=== PATIENT | female | born 1950 ===

== ENCOUNTER → 2020-07-03 14:42 | Outpatient (BNVA) | payer MEDICARE, SELFPAY | PROVIDERS: PCP Internal Medicine Geriatric Medicine; Visit Provider Physician Assistant | DX: K21.9 Gastro-esophageal reflux disease without esophagitis (principal); Z79.899 Other long term (current) drug therapy | CPT/HCPCS: Q3014 ==

== ENCOUNTER 2021-03-17 19:10 | Emergency (ER) | payer MEDICARE, SELFPAY ==
--- NOTE | ~2021-03-17 | XR_ITS ---
EXAMINATION: LEFT HIP, LEFT CLINICAL INFORMATION: Left hip and knee pain with swelling COMPARISON: Left knee 08/24/2016, CT abdomen pelvis 05/01/2019 TECHNIQUE: 2 views left knee, single view pelvis with 2 additional views left hip FINDINGS: Knee: No significant abnormality is seen. A tiny posterior superior patellar osteophyte is seen. Joint spaces are well preserved. No chondrocalcinosis. Left hip: There is partial lumbarization of S1. Degenerative changes are noted in the visualized spine. Some minimal degenerative changes are present in both hips with some lateral acetabular osteophytes. XR/XR hip LT min 2V IMPRESSION: Minimal degenerative changes hips as well as in the left knee.
--- NOTE | ~2021-03-17 | XR_ITS ---
EXAMINATION: LEFT HIP, LEFT CLINICAL INFORMATION: Left hip and knee pain with swelling COMPARISON: Left knee 08/24/2016, CT abdomen pelvis 05/01/2019 TECHNIQUE: 2 views left knee, single view pelvis with 2 additional views left hip FINDINGS: Knee: No significant abnormality is seen. A tiny posterior superior patellar osteophyte is seen. Joint spaces are well preserved. No chondrocalcinosis. Left hip: There is partial lumbarization of S1. Degenerative changes are noted in the visualized spine. Some minimal degenerative changes are present in both hips with some lateral acetabular osteophytes. XR/XR knee LT 2V IMPRESSION: Minimal degenerative changes hips as well as in the left knee.
--- NOTE | ~2021-03-17 | US_ITS ---
EXAMINATION: US VENOUS WITH DOPPLER LOWER EXTREMITY, LEFT CLINICAL INFORMATION: Swelling. Pain. Evaluate for a deep vein thrombosis. COMPARISON: Left lower extremity venous ultrasound dated 08/24/2019. TECHNIQUE: Ultrasound of the deep veins is performed from the hip to the calf with compression sonography and color and pulse Doppler assessment. Spectral analysis with color-flow imaging is performed. FINDINGS: There is normal venous compression and respiratory variation and augmented flow. The visualized common femoral vein, superficial femoral vein, profunda femoral vein, popliteal vein, and the trifurcation region shows no evidence of deep venous thrombosis. There is no significant popliteal fossa cyst. If the patient's symptoms persist, follow up ultrasound in 5 days 7 days might be of value to exclude proximal propagation from a non-visualized calf vein. US/US venous duplex LE IMPRESSION: No DVT demonstrated in the left lower extremity.
[2021-03-17 19:39] VITALS: BP 149/77; PULSE 79; RESP 18; TEMP 37; O2SAT 99; BMI 25.7
--- NOTE | 2021-03-17 22:17 | ED_ITS ---
HPI - Extremity Injury (Lower) General Chief Complaint: Extremity Injury, Lower Stated Complaint: swollen feet Time Seen by Provider: 03/17/21 21:27 Source: patient and official court interpreter Mode of arrival: ambulatory Limitations: no limitations and language barrier History of Present Illness HPI Narrative: 70-year-old female here with complaints of left leg pain and swelling. The patient tells me that for about 1 week she has had pain which she feels is in her left inner groin which radiates down to the knee. No injury or trauma. She feels like the distal leg is swollen. No warmth or redness. No recent travel or sick contact. No fevers or chills or numbness or tingling. She feels like the pain is worsened with weight-bearing. Related Data Home Medications Medication Instructions Recorded Confirmed pantoprazole 40 mg tablet,delayed 40 mg PO DAILY 07/03/20 07/03/20 release Previous Rx's Medication Instructions Recorded cyclobenzaprine 10 mg PO TID PRN #10 tab 03/17/21 naproxen 250 mg PO BID PRN #15 tab 03/17/21 Allergies Allergy/AdvReac Type Severity Reaction Status Date / Time poly-ureaurethane Allergy Unknown SEVERE Verified 03/17/21 19:43 [From NUVAIL] ANXIETY Review of Systems Review of Systems: Yes all other systems are reviewed and are negative Constitutional: Constitutional: Reports no additional constitutional complaints, Denies body ache(s), Denies chills, Denies fever(s), Denies headache(s) and Denies weakness Eyes: Eyes: Reports no additional eye complaints and Denies change in vision ENT: Reports system reviewed and no additional complaints, except as documented, Denies dizziness, Denies headache(s), Denies nasal congestion, Denies nasal discharge and Denies neck pain Cardiovascular: Cardiovascular: Reports no additional cardiovascular complaints, Denies chest pain, Denies leg edema and Denies dyspnea Respiratory: Respiratory: Reports no additional respiratory complaints, Denies cough and Denies dyspnea Gastrointestinal: Gastrointestinal: Reports no additional gastrointestinal complaints, Denies abdominal pain, Denies diarrhea, Denies nausea and Denies vomiting Genitourinary: Genitourinary: Reports no additional female genitourinary complaints and Denies urinary incontinence Musculoskeletal: Musculoskeletal: Reports no additional musculoskeletal complaints, Denies back pain, Reports arthralgias, Denies joint swelling, Denies neck pain, Denies numbness, Reports radiating pain into limb and Denies tingling Integumentary/Breasts: Skin/Breast: Reports system reviewed and no additional complaints, except as docu and Denies rash Neurologic: Reports system reviewed and no additional complaints, except as documented, Denies Abnormal speech present, Denies dizziness, Denies headache(s), Denies numbness, Denies tingling and Denies weakness PMFSH Past Medical History Attestation statement: The following information was validated with the patient. Source: old records reviewed and nursing notes reviewed Medical History Acid reflux HTN (hypertension) Surgical History H/O: hysterectomy Hx of tonsillectomy Family History Family History Brother Prostate cancer Sister Colon cancer Social History Social History Alcohol intake: never Advance Directives: No Advance Directives Information Provided: No Current occupational status: employed Physical Exam Vital Signs: Vital Signs: Last Vital Signs Temp 98.6 F 03/17/21 19:39 Pulse 79 03/17/21 19:39 Resp 18 03/17/21 19:39 BP 149/77 H 03/17/21 19:39 Pulse Ox 99 03/17/21 19:39 Body Mass Index 25.7 Const: General: cooperative, healthy appearing, comfortable and no acute distress Orientation/consciousness: patient oriented x3 Limitations: no limitations HENMT: Head: Yes normal to inspection Ears: hearing grossly normal bilaterally General nose exam: Normal external nose present Face and si nus: Yes normal facial exam Mouth: Normal oral and palatal mucosa present Throat: Yes posterior oropharynx normal Eyes: General: appearance normal, both eyes and all related structures Pupils: Equal, round and reactive pupils present Neck: Neck: Yes normal visual inspection Chest: Chest palpation & inspection: normal inspection of the chest Resp: Effort & Inspection: normal respiratory effort Auscultation: clear to auscultation bilaterally Cardio: Rate: regular rate Rhythm: regular rhythm Peripheral pulses: Peripheral pulses 2+ throughout GI: Inspection: Yes normal to inspection Palpation (GI): Soft to palpation and nontender Auscultation: normal bowel sounds Back/Spine/Pelvis: Thoracic/Lumbar Spine: thoracic and lumbar spine normal to inspection Skin: General skin exam: no rashes or lesions noted Neuro: General: patient oriented x3, no focal motor deficits and normal sensation to monofilament Cranial nerves: Yes Equal, round and reactive pupils present Cognition (Neuro): normal cognition Speech: No Abnormal speech present Gait exam (Neuro): Normal gait present Motor exam (neuro): 5/5 motor strength present throughout Extrem: Other: pain over the left anterior groin and inner thigh along the hip flexor-worsened with straight leg and leg with flexion of the knee. FROM of left hip Tenderness over left anterior knee with mild swelling and FROM. Left posterior calf pain with no swelling, erythema or warmth General: Yes normal to inspection Course Course Course Narrative: 70 yo female here with complaints of one week of left hip pain with radiation to the knee. No fall or injury. On exam has tenderness over the left hip flexor. Also pain over knee and posterior calf. Will check x-rays, US. 2250-x-ray shows some degenerative changes. Ultrasound is negative for DVT. Likely hip flexor strain. Could also be a component of underlying arthritis. Will treat with supportive measures. Have patient follow-up with primary care doctor for continued pain. Reviewed worrisome signs and symptoms of when to return to the emergency department. Comfortable discharge home. MDM - Extremity Injury (Lower) Medical Records Attestation: I reviewed the patient's medical records. Lab Data Attestation: I reviewed the patient's lab results. Imaging Data left hip xray: Attestation: I personally reviewed and interpreted this imaging study as follows: Radiologist's impression: Left hip: There is partial lumbarization of S1. Degenerative changes are noted in the visualized spine. Some minimal degenerative changes are present in both hips with some lateral acetabular osteophytes. left knee xray: Attestation: I personally reviewed and interpreted this imaging study as follows: Radiologist's impression: Knee: No significant abnormality is seen. A tiny posterior superior patellar osteophyte is seen. Joint spaces are well preserved. No chondrocalcinosis. Venous US: Attestation: I personally reviewed and interpreted this imaging study as follows: Radiologist's impression: FINDINGS: There is normal venous compression and respiratory variation and augmented flow. The visualized common femoral vein, superficial femoral vein, profunda femoral vein, popliteal vein, and the trifurcation region shows no evidence of deep venous thrombosis. There is no significant popliteal fossa cyst. If the patient's symptoms persist, follow up ultrasound in 5 days 7 days might be of value to exclude proximal propagation from a non-visualized calf vein. US/US venous duplex LE LT IMPRESSION: No DVT demonstrated in the left lower extremity. Discharge Plan Discharge Clinical Impression: Strain of flexor muscle of left hip Qualifiers: Encounter type: initial encounter Qualified Code(s): S76.012A - Strain of muscle, fascia and tendon of left hip, initial encounter Patient Disposition: Home, Self-Care Instructions: Muscle Strain (ED), Groin Strain (ED) Additional Instructions: Heat to the area Gentle stretching Your x-rays show some arthritis. Your ultrasound shows no blood clots. Your exam is consistent with a hip flexor strain Prescriptions: New cyclobenzaprine 10 mg tablet 10 mg PO TID PRN (Reason: muscle spasm) Qty: 10 RF: 0 naproxen 250 mg tablet 250 mg PO BID PRN (Reason: pain) Qty: 15 RF: 0 No Action pantoprazole 40 mg tablet,delayed release (DR/EC) 40 mg PO DAILY RF: 0 Referrals: Name,MD Saleem [Primary Care Provider] - 2 days Print Language: Guinean
== END 2021-03-17 23:19 | disposition home or self-care (01) ==
PROVIDERS: Emergency Provider Emergency Medicine; PCP Internal Medicine Geriatric Medicine
DX: S76.012A Strain of muscle, fascia and tendon of left hip, initial encounter (principal); X58.XXXA Exposure to other specified factors, initial encounter; M79.605 Pain in left leg; R22.42 Localized swelling, mass and lump, left lower limb; I10 Essential (primary) hypertension; Y93.9 Activity, unspecified; Y92.9 Unspecified place or not applicable; Y99.9 Unspecified external cause status
CPT/HCPCS: 73502; 73560; 93971; 99283; 99284

== ENCOUNTER 2021-11-12 13:06 | Emergency (ER) | payer MEDICARE, SELFPAY ==
[2021-11-12 14:07] VITALS: BP 169/85; PULSE 73; RESP 18; TEMP 37; O2SAT 99; BMI 27.4
--- NOTE | 2021-11-12 15:04 | ECG_ITS ---
Test Reason : HTN Blood Pressure : / mmHG Vent. Rate : 074 BPM Atrial Rate : 074 BPM P-R Int : 144 ms QRS Dur : 070 ms QT Int : 402 ms P-R-T Axes : 032 -02 021 degrees QTc Int : 446 ms Normal sinus rhythm Possible Left atrial enlargement Septal infarct , age undetermined Abnormal ECG When compared with ECG of 23-OCT-2019 00:00, Septal infarct is now Present Nonspecific T wave abnormality now evident in Anterolateral leads Referred By: Generic ED Physician Electronically Signed By:CYNTHIA LOVELL MD
[2021-11-12 15:36] LABS: MANUAL DIFF FLAG NO
[2021-11-12 15:37] LABS: Basophils Absolute Auto 0.1 X10*3/uL (0.0-0.2); Basophils Percent Auto 1.4 % (0-2); Eosinophils Absolute Auto 0.3 X10*3/uL (0.0-0.4); Eosinophils Percent Auto 4.4 % (0-4); Hematocrit 43.7 % (37.0-47.0); Hemoglobin 14.1 g/dl (12.0-16.0); Imm Gran Abs Auto 0.01 X10*3/uL (0.00-0.03); Imm Gran Pct Auto 0.2 % (0.0-0.4); Lymphocytes Absolute Auto 2.3 X10*3/uL (1.2-4.9); Lymphocytes Percent Auto 40.5 % (20-40); Mean Corpuscular HGB Conc 32.3 g/dl (31.0-35.0); Mean Corpuscular Hemoglobin 30.9 pg (27.0-33.0); Mean Corpuscular Volume 95.6 fL (80.0-98.0); Mean Platelet Volume 12.1 fL (9.4-12.3); Monocytes Absolute Auto 0.4 X10*3/uL (0.1-1.2); Monocytes Percent Auto 6.9 % (2-11); Neutrophils Absolute Auto 2.6 x10*3/uL (2.0-8.3); Neutrophils Percent Auto 46.6 % (45-73); Platelet Count 203 X10*3/uL (160-400); Red Blood Count 4.57 X10*6/uL (4.20-5.50); Red Cell Distribution Width 12.7 % (11.0-16.0); White Blood Count 5.7 X10*3/uL (4.8-10.8)
[2021-11-12 15:50] LABS: Anion Gap 12 (12-20); Blood Urea Nitrogen 11 mg/dL (9-16); Calcium 9.9 mg/dL (8.4-10.2); Carbon Dioxide 28 mmol/L (22-29); Chloride 105 mmol/L (96-108); Creatinine Clr Calc Pharmacy 59.8; Estimated Glomerular Filt Rate > 60; Glucose Random 144 mg/dL (60-115); Potassium 4.3 mmol/L (3.3-5.1); Sodium 141 mmol/L (135-145)
[2021-11-12 15:57] LABS: Troponin-I High Sensitivity < 3.5 ng/L (<3.5-17.0)
--- NOTE | 2021-11-12 18:27 | ED_ITS ---
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 She had a mild headache. She took her blood pressure noted that was high. She shows several readings where it was in the range of 170-180 systolic over 80-90 diastolic. Patient denies any acute visual changes. Her headache is very mild. She denies any new numbness or weakness in her arms or legs or face. She denies any shortness of breath, has had some mild twinges of chest pain. She denies abdominal pain, nausea vomiting. She has felt like her feet are low bit swollen. She does have some chronic tingling in both of her arms. Related Data Home Medications Medication Instructions Recorded Confirmed pantoprazole 40 mg tablet,delayed 40 mg PO DAILY 07/03/20 07/03/20 release Previous Rx's Medication Instructions Recorded cyclobenzaprine 10 mg tablet 10 mg PO TID PRN #10 tab 03/17/21 naproxen 250 mg tablet 250 mg PO BID PRN #15 tab 03/17/21 amlodipine 5 mg tablet 5 mg PO BID #30 tab 11/12/21 Allergies Allergy/AdvReac Type Severity Reaction Status Date / Time poly-ureaurethane Allergy Unknown SEVERE Verified 03/17/21 19:43 [From NUVAIL] ANXIETY Review of Systems Review of Systems: Yes all other systems are reviewed and are negative Constitutional: Constitutional: Reports as per HPI and Denies fever(s) Eyes: Eyes: Reports as per HPI and Reports no additional eye complaints ENT: Reports system reviewed and no additional complaints, except as documented, Reports as per HPI, Reports dizziness, Denies nasal congestion, Denies nasal discharge and Denies sore throat Cardiovascular: Cardiovascular: Reports as per HPI, Reports chest pain and D enies dyspnea Respiratory: Respiratory: Reports as per HPI, Denies cough and Denies dyspnea Gastrointestinal: Gastrointestinal: Reports as per HPI, Denies abdominal pain, Denies diarrhea and Denies vomiting Genitourinary: Genitourinary: Reports as per HPI, Denies hematuria, Denies urinary frequency and Denies dysuria Musculoskeletal: Musculoskeletal: Reports no additional musculoskeletal complaints and Denies numbness Integumentary/Breasts: Skin/Breast: Reports as per HPI and Denies rash Neurologic: Reports as per HPI, Reports dizziness, Denies focal weakness and Denies numbness Psychiatric: Psychiatric: Reports no additional psychiatric complaints and Reports as per HPI Endocrine: Endocrine: Reports no additional endocrine complaints and Reports as per HPI Hematologic/Lymphatic: Hematologic/Lymphatic: Reports no additional he matologic/lymphatic complaints, Reports as per HPI and Reports other (No peripheral edema) [facility] Past Medical History Medical History Acid reflux HTN (hypertension) Surgical History H/O: hysterectomy Hx of tonsillectomy Family History Family History Brother Prostate cancer Sister Colon cancer Social History Social History Alcohol intake: never Advance Directives: No Advance Directives Information Provided: Yes Current occupational status: employed Physical Exam ED Vital Signs: Vital Signs - 24 hr 11/12/21 14:07 11/12/21 19:59 Temperature 98.6 F Pulse Rate 73 65 Respiratory Rate 18 16 Blood Pressure 169/85 H 148/76 H Pulse Oximetry 99 99 BMI result Body Mass Index 27.4 Const Other: Patient well-appearing for her stated age General: no acute distress Orientation/consciousness: patient oriented x3 HENMT Head: Yes normal to inspection General nose exam: Normal external nose present Mouth: moist mucous membranes Throat: Yes posterior oropharynx normal, Yes tonsils normal and Yes uvula midline Eyes Eyelids: Yes eyelids normal Conjunctivae: conjunctivae normal Pupils: Equal, round and reactive pupils present Neck Neck: Yes supple Resp Effort & Inspection: normal respiratory effort Auscultation: clear to auscultation bilaterally Cardio Rate: regular rate Rhythm: regular rhythm Heart sounds: S1 normal heart sound present, S2 normal heart sound present, no gallops, no murmurs and no rubs GI Inspection: No distended Palpation (GI): Soft to palpation and nontender Auscultation: normal bowel sounds Skin General skin exam: other (Warm and dry) Neuro General: patient oriented x3 and CN's II-XI intact bilaterally Cranial nerves: Yes Equal, round and reactive pupils present Extrem General: Yes no pedal edema Psych Affect: normal affect Attitude: cooperative Medical Decision Making MDM Narrative Medical decision making narrative: Patient with moderately elevated hypertension, not at an emergent level Patient has been taking her blood pressure medicines. Patient was given an additional d ose of amlodipine, will increase her amlodipine to 10 mg a day) 5 mg p.o. b.i.d.), in addition to her irbesartan. CBC chemistry EKG unremarkable Lab Data Result diagrams: 11/12/21 15:31 11/12/21 15:31 Labs: Lab Results 11/12/21 11/12/21 11/12/21 Range/Units 15:31 15:31 15:31 WBC 5.7 (4.8-10.8) X10*3/uL RBC 4.57 (4.20-5.50) X10*6/uL Hgb 14.1 (12.0-16.0) g/dl Hct 43.7 (37.0-47.0) % MCV 95.6 (80.0-98.0) fL MCH 30.9 (27.0-33.0) pg MCHC 32.3 (31.0-35.0) g/dl RDW 12.7 (11.0-16.0) % Plt Count 203 (160-400) X10*3/uL MPV 12.1 (9.4-12.3) fL Immature Gran % (Auto) 0.2 (0.0-0.4) % Neut % (Auto) 46.6 (45-73) % Lymph % (Auto) 40.5 H (20-40) % [place] % (Auto) 6.9 (2-11) % Eos % (Auto) 4.4 H (0-4) % Baso % (Auto) 1.4 (0-2) % Lymph # (Auto) 2.3 (1.2-4.9) X10*3/uL [place] # (Auto) 0.4 (0.1-1.2) X10*3/uL Eos # (Auto) 0.3 (0.0-0.4) X10*3/uL Baso # (Auto) 0.1 (0.0-0.2) X10*3/uL Abs Immat Gran (auto) 0.01 (0.00-0.03) X10*3/uL Absolute Neuts (auto) 2.6 (2.0-8.3) x10*3/uL Absolute Nucleated RBC 0.000 (0.0-0.012) X10*3/uL Nucleated RBC % (auto) 0.0 (0.0-0.2) /100WBC Sodium 141 (135-145) mmol/L Potassium 4.3 (3.3-5.1) mmol/L Chloride 105 (96-108) mmol/L Carbon Dioxide 28 (22-29) mmol/L Anion Gap 12 (12-20) BUN 11 (9-16) mg/dL Creatinine 0.80 (0.5-1.4) mg/dL Estim Creat Clear Calc 59.8 Estimated GFR > 60 Random Glucose 144 H (60-115) mg/dL Calcium 9.9 (8.4-10.2) mg/dL Troponin I High Sens < 3.5 (<3.5-17.0) ng/L ECG Data Attestation: I personally reviewed and interpreted this ECG as follows: Interpretation: Sinus rhythm with a rate of 74. Q-waves in leads V1 and V2 consistent with an old septal infarct. No ST elevation or depression. Discharge Plan Discharge Clinical Impression: HTN (hypertension) Patient Disposition: Home, Self-Care Instructions: Hypertension (ED) Additional Instructions: Double your dose of amlodipine to 10 mg daily, and follow up with her primary care physician. Return for any new or worsened symptoms. Prescriptions: New amlodipine 5 mg tablet 5 mg PO BID Qty: 30 0RF Rx Instructions: Patient currently on 5 mg daily, is to increase to 5 mg b.i.d. No Action cyclobenzaprine 10 mg tablet 10 mg PO TID PRN (Reason: muscle spasm) Qty: 10 0RF naproxen 250 mg tablet 250 mg PO BID PRN (Reason: pain) Qty: 15 0RF pantoprazole 40 mg tablet,delayed release (DR/EC) 40 mg PO DAILY 0RF Interventions: ED Discharge Assessment Last Done: 11/12/21 20:04 Discharge Date/Time: 11/12/21 20:05
[2021-11-12 19:59] VITALS: BP 148/76; PULSE 65; RESP 16; O2SAT 99
--- NOTE | 2021-11-12 20:00 | PC.NURSE ---
pt denies chest pain, pressure, or dizziness.
[2021-11-12] MEDS: amLODIPine Besylate 5 MG TABLET PO (20:01)
== END 2021-11-12 20:05 | disposition home or self-care (01) ==
PROVIDERS: Emergency Provider Emergency Medicine; PCP Internal Medicine Geriatric Medicine
DX: I10 Essential (primary) hypertension (principal); R51.9 Headache, unspecified
CPT/HCPCS: 36415; 80048; 84484; 85025; 93005; 99283; 99284

== ENCOUNTER → 2021-11-17 08:57 | Outpatient (BNVA) | payer MEDICARE, SELFPAY | PROVIDERS: PCP Internal Medicine Geriatric Medicine; Visit Provider Physician Assistant | DX: K21.9 Gastro-esophageal reflux disease without esophagitis (principal) | CPT/HCPCS: 99212 ==

== ENCOUNTER 2021-12-15 10:40 | Outpatient (REF) | payer MEDICARE, SELFPAY ==
--- NOTE | ~2021-12-15 | MM_ITS ---
EXAMINATION: MM SCREENING DIGITAL BREAST TOMOSYNTHESIS, BILATERAL CLINICAL INFORMATION: Screening. Asymptomatic. The lifetime risk of breast cancer based on the Tyrer-Cuzick Model is 4%. COMPARISON: Mammography: 11/27/2018 (new baseline) TECHNIQUE: Digital breast tomosynthesis is performed in both the craniocaudal and mediolateral oblique views along with computer-aided detection (CAD). Synthesized 2D images are generated from the tomosynthesis. FINDINGS: There are scattered areas of fibroglandular density (ACR BI-RADS breast composition Category b). There are no significant masses, abnormal calcifications, or other abnormalities. Parenchymal pattern is similar to prior new baseline exam. The axilla and skin contours are unremarkable. MM/MM tomosynthesis screening BI IMPRESSION: No mammographic evidence of malignancy. ASSESSMENT: BI-RADS 1: Negative RECOMMENDATION: Routine annual mammography screening. This patient's information was entered into a reminder system with a target due date for their next mammogram.
== END 2021-12-15 10:41 | disposition home or self-care (01) ==
LOC: HO.MAMMO 10:40
PROVIDERS: Visit Provider Internal Medicine Geriatric Medicine
DX: Z12.31 Encounter for screening mammogram for malignant neoplasm of breast (principal)
CPT/HCPCS: 77063; 77067

== ENCOUNTER 2022-05-05 09:46 | Outpatient (REF) | payer MEDICARE, SELFPAY ==
--- NOTE | ~2022-05-05 | MM_ITS ---
EXAMINATION: BONE DENSITOMETRY CLINICAL INDICATION: Menopause. COMPARISON: Baseline BD dated 12/15/2018. TECHNIQUE: Using a [employer] DXA System (software version: 13.1) manufactured by [employer] Left, dual-energy x-ray absorptiometry was performed of the lumbar spine and left hip. The images are of good technical quality. Summary results are attached. FINDINGS: AP SPINE L1-L4: Current: BMD 0.733 g/cm2, Z-score -2.1, T-score -3.7, osteoporosis, 3.8% increase from baseline (<5% change is not significant). Baseline: BMD 0.706 g/cm2. LEFT FEMUR, NECK: Current: BMD 0.682 g/cm2, Z-score -0.8, T-score -2.6, osteoporosis. Baseline: BMD 0.741 g/cm2. LEFT FEMUR, TOTAL: Current: BMD 0.771 g/cm2, Z-score -0.3, T-score -1.9, osteopenia, 0.1% decrease from baseline (<5% change is not significant). Baseline: BMD 0.772 g/cm2. IDENTIFIED RISK FACTORS: Early menopause, secondary osteoporosis, family history (parental hip fracture), hysterectomy, recurrent falls. HISTORY OF FRACTURE: None listed. MEDICATIONS: Calcium supplements or multivitamin, vitamin D. MM/XR DEXA axial skeleton IMPRESSION: 1. DIAGNOSIS: Osteoporosis based on the lowest T-score value of -3.7 in the lumbar spine applying World Health Organization criteria. 2. 10-YEAR FRACTURE RISK PREDICTION, FRAX: Major osteoporotic fracture (clinical spine, forearm, hip or shoulder) 16.7%. Hip fracture 8.3%. 3. Treatment Recommendations: NOF guidelines recommend consideration for treatment in postmenopausal women and men age 50 and older presenting with the following: -A hip or vertebral (clinical or morphometric) fracture. -T-score less than or equal to -2.5 at the femoral neck or spine after appropriate evaluation to exclude secondary causes. -Low bone mass at the hip or spine and a 10-year fracture probability by FRAX of greater than or equal to 3% for hip fracture or greater than or equal to 20% for major osteoporotic fracture based on the [place] adapted WHO algorithm. 4. Other Recommendations: All treatment decisions require clinical judgment and consideration of individual patient factors, including patient preferences, comorbidities, previous drug use, risk factors not captured in the FRAX model (e.g. frailty, falls, vitamin D deficiency, increased bone turnover, interval significant decline in bone density) and possible under or overestimation of fracture risk by FRAX. Additional medical evaluation for secondary cause of low bone mineral density may be appropriate. FUTURE SCAN RECOMMENDATION: People with diagnosed cases of osteoporosis or at high risk for fracture should have regular bone mineral density tests. For patients eligible for Medicare, routine testing is allowed once every 2 years. The testing frequency can be increased to one year for patients who have rapidly progressing disease, those who are receiving or discontinuing medical therapy to restore bone mass, or have additional risk factors.
== END 2022-05-05 09:47 | disposition home or self-care (01) ==
LOC: HO.MAMMO 09:46
PROVIDERS: PCP Internal Medicine Geriatric Medicine; Visit Provider Internal Medicine Geriatric Medicine
DX: Z13.820 Encounter for screening for osteoporosis (principal); Z78.0 Asymptomatic menopausal state
CPT/HCPCS: 77080

== ENCOUNTER → 2022-05-25 08:52 | Outpatient (BNVA) | payer MEDICARE, SELFPAY | PROVIDERS: PCP Internal Medicine Geriatric Medicine; Visit Provider Internal Medicine Endocrinology, Diabetes & Metabolism | DX: M81.0 Age-related osteoporosis without current pathological fracture (principal) | CPT/HCPCS: 99202 ==

== ENCOUNTER 2022-05-25 10:04 | Outpatient (REF) | payer MEDICARE, SELFPAY ==
[2022-05-25 10:51] LABS: Phosphorus 3.3 mg/dL (2.7-4.5)
[2022-05-25 11:15] LABS: Vitamin D 25-OH Total 17.6 ng/mL (>30)
[2022-05-28 21:17] LABS: Prot Elec - Albumin 4.2 g/dL (3.8-4.8); Prot Elec - Alpha1 0.2 g/dL (0.2-0.3); Prot Elec - Alpha2 0.8 g/dL (0.5-0.9); Prot Elec - Beta 1 0.5 g/dL (0.4-0.6); Prot Elec - Beta 2 0.3 g/dL (0.2-0.5); Prot Elec - Gamma 1.1 g/dL (0.8-1.7); Prot Elec - Total Protein 7.1 g/dL (6.1-8.1)
== END 2022-05-25 10:05 | disposition home or self-care (01) ==
LOC: HO.10HDL 10:04
PROVIDERS: Visit Provider Internal Medicine Endocrinology, Diabetes & Metabolism
DX: M81.0 Age-related osteoporosis without current pathological fracture (principal)
CPT/HCPCS: 82306; 84100; 84165; 86335

== ENCOUNTER 2022-05-27 08:34 | Outpatient (REF) | payer MEDICARE, SELFPAY ==
[2022-05-27 11:38] LABS: Total Volume 24 Hour Urine 950 mL
[2022-05-27 11:49] LABS: Creatinine, 24Hr Urine 0.8 G/Day (1.0-2.0); Creatinine, mg/dL 84.98
[2022-05-29 17:52] LABS: Calcium, 24 Hr Urine 143 mg/24 h; Calcium/Creatinine Ratio 176 mg/g creat (30-275); Creatinine 24Hr Urine 0.82 g/24 h (0.50-2.15)
== END 2022-05-27 08:35 | disposition home or self-care (01) ==
LOC: HO.10HDLNP 08:34
PROVIDERS: Visit Provider Internal Medicine Endocrinology, Diabetes & Metabolism
DX: M81.0 Age-related osteoporosis without current pathological fracture (principal)
CPT/HCPCS: 82340; 82570

== ENCOUNTER 2022-09-28 08:22 | Outpatient (REF) | payer MEDICARE, SELFPAY ==
[2022-09-28 11:25] LABS: Vitamin D 25-OH Total 14.5 ng/mL (>30)
== END 2022-09-28 08:23 | disposition home or self-care (01) ==
LOC: HO.10HDL 08:22
PROVIDERS: Visit Provider Internal Medicine Endocrinology, Diabetes & Metabolism
DX: M81.0 Age-related osteoporosis without current pathological fracture (principal)
CPT/HCPCS: 36415; 82306; 99212

== ENCOUNTER → 2022-12-28 07:50 | Outpatient (BNVA) | payer MEDICARE, SELFPAY | PROVIDERS: PCP Internal Medicine Geriatric Medicine; Visit Provider Internal Medicine Endocrinology, Diabetes & Metabolism | DX: M81.0 Age-related osteoporosis without current pathological fracture (principal) | CPT/HCPCS: 99212 ==

== ENCOUNTER 2023-09-22 09:38 | Outpatient (REF) | payer MEDICARE, SELFPAY ==
[2023-09-22 12:14] LABS: Anion Gap 11 (12-20); Blood Urea Nitrogen 14 mg/dL (9-16); Calcium 9.5 mg/dL (8.4-10.2); Carbon Dioxide 29 mmol/L (22-29); Chloride 106 mmol/L (96-108); Estimated Glomerular Filt Rate > 60; Glucose Random 97 mg/dL (60-115); Potassium 3.9 mmol/L (3.3-5.1); Sodium 142 mmol/L (135-145)
[2023-09-22 12:18] LABS: TSH reflex Free T4 3.06 uIU/mL (0.32-4.0); Vitamin D 25-OH Total 28.8 ng/mL (>30)
== END 2023-09-22 09:39 | disposition home or self-care (01) ==
LOC: HO.HHCL 09:38
PROVIDERS: Visit Provider Internal Medicine Geriatric Medicine
DX: E03.9 Hypothyroidism, unspecified (principal); M81.0 Age-related osteoporosis without current pathological fracture; I10 Essential (primary) hypertension
CPT/HCPCS: 36415; 80048; 82306; 84443

== ENCOUNTER 2024-02-07 10:56 | Outpatient (AMB) | payer MEDICARE, SELFPAY ==
--- NOTE | 2024-02-07 10:57 | MHC.OFFVIS ---
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 Patient expresses her 3rd finger on her left hand and the 4th finger on her right hand has been locking for about three months now. She states she her pain radiates up her arms. Right is worse than left. Denies numbness and tingling and recent injury. Patient reports she is open to discussing injections today if needed. 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 She complains of ~3 months painful locking of her right middle finger, and left ring finger. She says her right trigger finger causes her pain which she says radiates up into her shoulder. She denies any prior treatment options & would like to discuss possible injections. She denies any numbness, tingling, or recent injury. [facility] Medical History Osteoporosis Acid reflux HTN (hypertension) Surgical History History of eye surgery Hx of tonsillectomy H/O: hysterectomy Family History Brother Prostate cancer Sister Colon cancer Social History Household Members: Spouse Household Members Other:: Alcohol intake: never Current occupational status: unemployed Current occupation: right hand dominant Review of Systems Const All systems reviewed & are unremarkable except as noted in HPI and below Physical Exam Vital Signs: BMI result Body Mass Index 25.7 Const General: cooperative, healthy appearing and no acute distress Orientation/consciousness: patient oriented x3 HEENT Head: Yes normocephalic and Yes atraumatic Eyes EOM: EOMs intact bilaterally Resp Effort & Inspection: normal respiratory effort and able to speak in complete sentences Cardio Jugular venous distension: no JVD Skin General skin exam: turgor normal Rashes: no rashes Neuro General: patient oriented x3 Extrem Other: Evaluation of Bilateral Upper Extremity: The patient is alert, oriented, and in no acute distress Neuro: Median, Ulnar, Radial nerves motor and sensory intact and sensation is normal to the tips of all digits Vascular: Cap refill brisk ROM: She can make a fist and extend all her digits Visible & palpable locking & catching of the right middle & left ring fingers Tender over the a1 jordan of the right middle & left ring fingers Skin: No lacerations or abrasions. General: No Ecchymosis. No Erythema or evidence of infection. Psych Appearance: grossly normal Affect: normal affect Attitude: cooperative Office Procedures Fracture Care Details: No fracture, injection Fracture Billing Code: Fracture Billing Code Assessment & Plan Assessment & Plan (1) Trigger finger, right middle finger: Code(s): M65.331 - Trigger finger, right middle finger Category: Medical (2) Trigger finger, left ring finger: Code(s): M65.342 - Trigger finger, left ring finger Category: Medical Plan Assessment & Plan: 1. Right middle finger trigger finger 2. Left ring finger trigger finger I educated her about these conditions I discussed operative and non-operative treatment options The patient would like to proceed with surgery & an injection today. The risks and benefits of operative treatment were discussed with the patient and the patient wishes to proceed with surgery. These risks include, but are not limited to risk of damage to blood vessels, nerves, tendons, infection, recurrence, incomplete relief of preoperative symptoms, persistent pain, possible need for further surgery and the risks associated with regional blocks and anesthesia. The plan is to take the patient to the operating room sometime in the next few weeks for the following procedures: 1. Right middle finger trigger release, under local All of the preoperative paperwork including the consent was reviewed today. All the patient's questions were answered. The patient understands that they will be contacted by our chief crew scheduler soon to schedule this procedure She denies Diabetes, blood thinners, asthma, heart, lung, kidney issues Injection #1: The risks and benefits of a steroid injection including but not limited to risk of damage to blood vessels, nerves, tendons, infection, skin bleaching, failure to improve symptoms, increased pain, and possible need for further injections or other intervention were discussed with the patient and the patient wishes to proceed with the steroid injection. Once consent was obtained, I sterilely prepped the area over the A1 jordan of the flexor tendon sheath of the Left ring finger. I then injected the flexor tendon sheath with a combination of 1 mL of dexamethasone (4mg/ml), and 1% lidocaine. The patient tolerated the procedure well with no complications. If the patient continues to have locking and catching 4-6 weeks following this injection, they may call to schedule appointment to discuss alternative treatment options Scribed for Irais Grijalva MD by Dale Harrison, medical lab assistant, on 02/07/24 at 11:20 AM, EST. Coding Level of Care Code New Pt Level 4 (09516) Diagnoses Trigger finger, right middle finger M65.331 Trigger finger, left ring finger M65.342 CPT Codes Fracture Care - Fracture Billing Code: Fracture Billing Code ([id number])
[2024-02-07 11:14] VITALS: BMI 25.7
== END 2024-02-07 12:11 | disposition home or self-care (01) ==
PROVIDERS: PCP Internal Medicine Geriatric Medicine; Visit Provider Orthopaedic Surgery
DX: M65.331 Trigger finger, right middle finger (principal); M65.342 Trigger finger, left ring finger
CPT/HCPCS: 20550; 99204

== ENCOUNTER → 2024-02-07 10:56 | Outpatient (BNVA) | payer MEDICARE, SELFPAY | PROVIDERS: PCP Internal Medicine Geriatric Medicine; Visit Provider Orthopaedic Surgery | DX: M65.342 Trigger finger, left ring finger (principal); M65.331 Trigger finger, right middle finger | CPT/HCPCS: 20550; 99202; J1100 ==

== ENCOUNTER 2024-04-05 11:14 | Emergency (ER) | payer MEDICARE, OTHER, SELFPAY ==
--- NOTE | ~2024-04-05 | XR_ITS ---
EXAMINATION: XR FOOT, RIGHT CLINICAL INFORMATION: Right heel pain. COMPARISON: None available. TECHNIQUE: AP, lateral, and oblique views of the right foot. FINDINGS: No acute fracture or dislocation. No joint space narrowing or marginal osteophytes. No osseous erosion. Plantar calcaneal spur. XR/XR foot RT min 3V IMPRESSION: Plantar calcaneal spur.
[2024-04-05 11:25] VITALS: BP 129/62; PULSE 77; RESP 16; TEMP 36; O2SAT 97; BMI 26.3
--- NOTE | 2024-04-05 11:25 | ED.EXTPRO ---
HPI - Extremity Problem General Chief complaint: Extremity Injury, Lower Stated complaint: r foot pain Time Seen by Provider: 04/05/24 13:19 Source: patient Mode of arrival: ambulatory Limitations: language barrier History of Present Illness HPI Narrative: 73 year old female with a past medical history of hypertension presents to the emergeny department with complaints of right heel pain for the past week. She describes the pain as throbbing and states pain is exacerbated by ambulation. She denies any known trauma but reports that she spends a great deal of time on her feet Pertinent positives and negative discussed in HPI Related Data Home Medications ?Medication ?Instructions ?Recorded ?Confirmed famotidine 40 mg tablet (Pepcid) 40 mg PO DAILY 11/17/21 12/28/22 irbesartan 75 mg tablet 75 mg PO DAILY 11/17/21 12/28/22 levothyroxine 88 mcg tablet 88 mcg PO DAILY 05/25/22 12/28/22 pantoprazole 40 mg tablet,delayed 40 mg PO BID 05/25/22 12/28/22 release latanoprost 0.005 % eye drops 0 drp ophthalmic (eye) 12/28/22 12/28/22 Previous Rx's ?Medication ?Instructions ?Recorded amlodipine 5 mg tablet 5 mg PO BID #30 tabs 11/12/21 cholecalciferol (vitamin D3) 50 50 mcg PO DAILY #30 caps 12/28/22 mcg (2,000 unit) capsule Allergies Allergy/AdvReac Type Severity Reaction Status Date / Time poly-ureaurethane Allergy Unknown SEVERE Verified 04/05/24 11:26 [From NUVAIL] ANXIETY Review of Systems Review of Systems: Yes all other systems are reviewed and are negative [facility] Past Medical History Medical History Osteoporosis Acid reflux HTN (hypertension) Surgical History History of eye surgery Hx of tonsillectomy H/O: hysterectomy Family History Family History Brother Prostate cancer Sister Colon cancer Social History Social History Household Members: Spouse Household Members Other:: Alcohol intake: never Advance Directives: No Advance Directives Information Provided: No Current occupational status: unemployed Current occupation: right hand dominant Physical Exam Vital Signs: Vital Signs: Last Vital Signs Temp 98.3 F 04/05/24 14:33 Pulse 70 04/05/24 14:33 Resp 18 04/05/24 14:33 BP 140/76 H 04/05/24 14:33 Pulse Ox 100 04/05/24 14:33 O2 Del Method Room Air 04/05/24 14:33 BMI result Body Mass Index 26.3 Nursing notes and vital signs reviewed. GENERAL APPEARANCE: A&0 x 4, generally well appearing, no acute distress HENMT: Normal to inspection, atraumatic, face symmetrical. Normal external ears, nose, and oropharynx clear. EYE: PERRLA, EOM intact, structures appear normal NECK: Supple without stiffness or restricted ROM. HEART: Normal rate and regular rhythm, normal S1/S2, no M/R/G LUNGS: LS CTA, moving air well. Able to speak in complete sentences. No crackles, wheezes, or rhonchi auscultated BACK: No CVAT, no obvious deformity EXTREMITIES: Moving all extremities without difficulty. Normal capillary refill. NEUROLOGICAL: Alert and oriented, moving all 4 extremities with equal strength. CN not formally tested but appearing grossly intact. Observed to ambulate with normal gait. Cognition normal SKIN: Warm and dry without any lesions, rash, or visible sores Extrem: Ankle/foot/toe images: 1. tenderness to palpation. No swelling or erythema noted Course Course Course Narrative: This is a Rapid Medical Examination (RME) performed by Chin Gustafson PA-C in triage. Full HPI, ROS, assessment and treatment plan per primary provider in the Main ED. 73 yo Icelandic speaking female with history of GERD, HTN, osteoporosis presenting to the ER for evaluation of right foot pain that is radiating up to the right hip. pain worse w/ weight bearing. no known injury. no leg swelling Plan: xr foot Medical Decision Making Medical Decision Making MDM Narrative: Old records reviewed for previous imaging, lab studies, ECGs, and notes. Patient was assessed the emergency department with no acute distress or toxicity noted. XR right foot completed, which I have independently interpreted as negative for acute fractures. A bone spur is noted at the calcaneous. Pt updated to rest, ice, and elevate foot for comfort in addition to wearing supportive shoes. Pt educated to follow up with podiatry with contact information provided. Patient is safe for discharge at this time with plan for olow-haf-jhnlncc Tylenol and/or NSAID such as ibuprofen or naproxen for fever/discomfort with dosing as per packaging. HPI, PE, diagnostics, and plan discussed with patient and family with no unanswered questions at this time. Strict return precautions given to return to the emergency department with new, worsening, or concerning emergent symptoms. Recommended to follow-up with there primary care provider in 24-48 hours for further treatment and management. Differential Diagnosis Differential Diagnoses: The differential diagnosis associated with the presentation includes but not limited to fracture, dislocaiton, strain, sprain, contusion, enthesophyte, tendon or ligament injury Independent Interpretation I performed an independent interpretation of an: Plain X-Ray External Record Review External record reviewed: Outpatient record and Prior outpatient labs Prescription Management I considered prescription management with: Pain Medication Narcotic pain medication was considered, however; based on exam, side effects, and high-risk of addiction was deemed necessary at this time. Chronic Conditions Patient?s care impacted by: Hypertension Discharge Plan Discharge Clinical Impression: Calcaneal spur of right foot Patient Disposition: Home, Self-Care Instructions: Acetaminophen (By mouth), R.I.C.E. Treatment (ED), Heel Spur (ED) Prescriptions: No Action amlodipine 5 mg tablet 5 mg PO BID Qty: 30 0RF Rx Instructions: Patient currently on 5 mg daily, is to increase to 5 mg b.i.d. irbesartan 75 mg tablet 75 mg PO DAILY famotidine [Pepcid] 40 mg tablet 40 mg PO DAILY levothyroxine 88 mcg tablet 88 mcg PO DAILY pantoprazole 40 mg tablet,delayed release (DR/EC) 40 mg PO BID latanoprost 0.005 % drops 0 drp ophthalmic (eye) cholecalciferol (vitamin D3) 50 mcg (2,000 unit) capsule 50 mcg PO DAILY Qty: 30 5RF Referrals: [facility] [Provider Group] () Name,MD Saleem [Primary Care Provider] - Stand Alone Forms: Work/School Release Interventions: ED Discharge Assessment Last Done: 04/05/24 14:33 Discharge Date/Time: 04/05/24 14:34 Print Language: Icelandic
[2024-04-05 12:00] VITALS: BP 125/61; PULSE 70; RESP 16; TEMP 36.8; O2SAT 100
[2024-04-05 14:33] VITALS: BP 140/76; PULSE 70; RESP 18; TEMP 36.8; O2SAT 100
== END 2024-04-05 14:34 | disposition home or self-care (01) ==
PROVIDERS: Emergency Provider Emergency Medicine; PCP Internal Medicine Geriatric Medicine
DX: M77.31 Calcaneal spur, right foot (principal)
CPT/HCPCS: 73630; 99283

== ENCOUNTER 2024-05-27 12:10 | Emergency (ER) | payer MEDICARE, OTHER, SELFPAY ==
--- NOTE | ~2024-05-27 | XR_ITS ---
EXAMINATION: XR FOOT, LEFT CLINICAL INFORMATION: Foot pain COMPARISON: Radiographs 07/09/2019 TECHNIQUE: AP, lateral, and oblique views of the left foot. FINDINGS: Postsurgical changes at the 5th PIP joint. Degenerative changes of the interphalangeal joints and mild osteoarthritis of the 1st MTP joint. No acute fracture or malalignment. Minimal heel spur. XR/XR foot LT min 3V IMPRESSION: Postsurgical changes of the 5th PIP joint. No acute fracture. Electronically signed by: Gael Denis MD 05/27/2024 01:14 PM EDT
--- NOTE | ~2024-05-27 | US_ITS ---
EXAMINATION: UNILATERAL TRIPLEX SCANNING OF THE LEFT LOWER EXTREMITY CLINICAL INFORMATION: Left lower extremity swelling. COMPARISON: 03/17/2021 TECHNIQUE: Color-flow triplex imaging with spectral analysis and compression Doppler were performed on the left lower extremity. FINDINGS: Respiratory variation, normal compression and augmented flow are noted throughout the lower extremity. The visualized common femoral vein, superficial femoral vein, profunda femoral vein, popliteal vein and mid calf peroneal and posterior tibial venous segments show no evidence of deep venous thrombosis. There is no Biggs's cyst. US/US venous duplex LE LT IMPRESSION: Normal triplex scan without evidence of deep venous thrombosis involving the left lower extremity. Electronically signed by: Gael Denis MD 05/27/2024 03:02 PM EDT
--- NOTE | 2024-05-27 12:24 | ED_ITS ---
HPI - General Adult General Chief complaint: Extremity Injury, Lower Stated complaint: L leg pain Time Seen by Provider: 05/27/24 13:30 History of Present Illness ED Provider: Olivia Wiley PA-C HPI narrative: 73 yold female with past history of osteoporosis, hypertension, acid reflux presents to the ED for left foot pain and swelling without any trauma. Patient denies any chest pain, shortness of breath, pleurisy, fever, or chills. Patient denies any leg swelling or calf pain. Related Data Home Medications ?Medication ?Instructions ?Recorded ?Confirmed famotidine 40 mg tablet (Pepcid) 40 mg PO DAILY 11/17/21 12/28/22 irbesartan 75 mg tablet 75 mg PO DAILY 11/17/21 12/28/22 levothyroxine 88 mcg tablet 88 mcg PO DAILY 05/25/22 12/28/22 pantoprazole 40 mg tablet,delayed 40 mg PO BID 05/25/22 12/28/22 release latanoprost 0.005 % eye drops 0 drp ophthalmic (eye) 12/28/22 12/28/22 Previous Rx's ?Medication ?Instructions ?Recorded amlodipine 5 mg tablet 5 mg PO BID #30 tabs 11/12/21 cholecalciferol (vitamin D3) 50 50 mcg PO DAILY #30 caps 12/28/22 mcg (2,000 unit) capsule naproxen 500 mg tablet 500 mg PO BID PRN pain 7 days #14 05/27/24 tabs prednisone 20 mg tablet 40 mg (2 x 20 mg) PO DAILY 5 days 05/27/24 #10 tabs Allergies Allergy/AdvReac Type Severity Reaction Status Date / Time poly-ureaurethane Allergy Unknown SEVERE Verified 05/27/24 12:27 [From NUVAIL] ANXIETY Review of Systems 2 Review of Systems: Left foot pain swelling PMFSH Past Medical History Medical History Osteoporosis Acid reflux HTN (hypertension) Surgical History History of eye surgery Hx of tonsillectomy H/O: hysterectomy Family History Family History Brother Prostate cancer Sister Colon cancer Social History Social History Household Members: Spouse Household Members Other:: Alcohol intake: never Advance Directives: No Advance Directives Information Provided: Yes Do you have a plan to hurt others: No Plan Current occupational status: unemployed Current occupation: right hand dominant Physical Exam ED Vital Signs: Vital Signs - 24 hr 05/27/24 12:25 05/27/24 14:52 05/27/24 16:36 Temperature 97.3 F 97.1 F 97.1 F Pulse Rate 74 90 90 Respiratory Rate 16 14 14 Blood Pressure 133/49 L 148/90 H 148/90 H Pulse Oximetry 100 100 100 Oxygen Delivery Method Room Air Room Air Room Air BMI result Body Mass Index 26.0 Const General: cooperative, healthy appearing, comfortable, no acute distress, well developed, alert and awake Orientation/consciousness: patient oriented x3 HENMT Head: Yes normal to inspection, Yes No palpable skull fracture present, Yes normocephalic, Yes atraumatic and No abrasion Throat: Yes posterior oropharynx normal, Yes tonsils normal and Yes uvula midline Eyes General: appearance normal, both eyes and all related structures Neck Neck: Yes normal visual inspection, Yes full ROM, Yes no lymphadenopathy, Yes no meningeal signs, Yes trachea midline, Yes supple, No anterior neck swelling and No tender Chest Chest palpation & inspection: normal inspection of the chest and normal palpation of entire chest wall Resp Effort & Inspection: normal respiratory effort and able to speak in complete sentences Auscultation: clear to auscultation bilaterally Cardio Jugular venous distension: no JVD Heart sounds: S1 normal heart sound present and S2 normal heart sound present GI Inspection: Yes normal to inspection Palpation (GI): Soft to palpation, not firm, nontender, no guarding and not rigid General: No CVA tenderness and Yes no CVA tenderness Back/Spine/Pelvis Back: no CVA tenderness, No CVA tenderness and No back tenderness Skin General skin exam: no rashes or lesions noted, elasticity normal and turgor normal Neuro General: patient oriented x3, gait normal, tone normal, moves all extremities, Normal light touch and pain sensation, no meningeal signs, no focal motor deficits, CN's II-XI intact bilaterally and normal sensation to monofilament Extrem General: Yes normal to inspection and Yes full ROM Ankle/foot/toe images: 2 1. Swelling on palpation. Slight tenderness. Negative for ecchymosis, crepitus, deformity, erythema, calf pain, pitting edema, leg swelling, red streaks. Rest of extremity normal. Motor/neuro/vascular exam intact Psych Appearance: grossly normal, well kempt and not disheveled Course Course Course Narrative: RME performed by Tereza Walker PA-C. Patient is a 73 year old assigned female at presenting to the emergency department with left foot pain, swelling, and burning. Patient states she will randomly get left foot swelling, warmth, and redness. Detailed physical exam and review of systems are deferred to the front end drupal developer. Labs and imaging ordered. Patient placed back in the waiting room pending room availability and results. Medical Decision Making Medical Decision Making [facility] Narrative: 73-year-old female presents to ED for left foot pain swelling without any trauma. Ultrasound negative for DVT. X-ray negative for fracture. X-ray negative for osteomyelitis. Labs negative for signs of cellulitis or osteomyelitis. Not suspecting compartment syndrome, arterial occlusion, necrotizing fasciitis, septic joint, gout, disclocation, osteomyelitits or cellultis. Patient to be discharged to follow-up with primary care provider. Patient explained worrisome signs. Differential Diagnosis Differential Diagnoses: The differential diagnosis associated with the presentation includes (DVT, fracture, cellulitis, osteomyelitis) Admission/Observation Consideration of admission/observation: Escalation of care including admission/observation considered Lab Data [facility] Lab Attestation statement: I reviewed the patient's lab results. 05/27/24 12:34 05/27/24 12:34 Labs: Lab Results 05/27/24 05/27/24 Range/Units 12:34 12:35 WBC 5.3 (4.8-10.8) X10*3/uL RBC 4.10 L (4.20-5.50) X10*6/uL Hgb 12.7 (12.0-16.0) g/dl Hct 38.8 (37.0-47.0) % MCV 94.6 (80.0-98.0) fL MCH 31.0 (27.0-33.0) pg MCHC 32.7 (31.0-35.0) g/dl RDW 13.3 (11.0-16.0) % Plt Count 202 (160-400) X10*3/uL MPV 11.7 (9.4-12.3) fL Immature Gran % (Auto) 0.2 (0.0-0.4) % Neut % (Auto) 51.6 (45-73) % Lymph % (Auto) 34.5 (20-40) % [place] % (Auto) 8.0 (2-11) % Eos % (Auto) 4.4 H (0-4) % Baso % (Auto) 1.3 (0-2) % Lymph # (Auto) 1.8 (1.2-4.9) X10*3/uL [place] # (Auto) 0.4 (0.1-1.2) X10*3/uL Eos # (Auto) 0.2 (0.0-0.4) X10*3/uL Baso # (Auto) 0.1 (0.0-0.2) X10*3/uL Abs Immat Gran (auto) 0.01 (0.00-0.03) X10*3/uL Absolute Neuts (auto) 2.7 (2.0-8.3) x10*3/uL Absolute Nucleated RBC 0.000 (0.0-0.012) X10*3/uL Nucleated RBC % (auto) 0.0 (0.0-0.2) /100WBC ESR 7 (0-20) MM/HR Hold Purple Top SEE NOTE Sodium 143 (135-145) mmol/L Potassium 4.1 (3.3-5.1) mmol/L Chloride 108 (96-108) mmol/L Carbon Dioxide 30 H (22-29) mmol/L Anion Gap 9 L (12-20) BUN 19 H (9-16) mg/dL Creatinine 0.82 (0.5-1.4) mg/dL Estim Creat Clear Calc 55.1 Estimated GFR > 60 Random Glucose 123 H (60-115) mg/dL Uric Acid 3.5 (2.4-5.7) mg/dL Calcium 9.3 (8.4-10.2) mg/dL Magnesium 2.2 (1.6-2.6) mg/dL Total Bilirubin 0.4 (0.0-1.0) mg/dL AST 13 (5-31) U/L ALT 10 (0-31) U/L Alkaline Phosphatase 136 H (39-117) U/L C-Reactive Protein < 0.04 (< or = 0.50) mg/dL Total Protein 7.2 (6.5-8.0) g/dL Albumin 4.2 (3.5-5.0) g/dL Independent Interpretation I performed an independent interpretation of an: Plain X-Ray Radiology Impression Discussion of test interpretation with radiology: I have reviewed the radiologist's reading. Independent Historian Clinical information obtained from an independent historian. History obtained from or confirmed by: Other (Patient) External Record Review External record reviewed: Other (Prior visits) Prescription Management I considered prescription management with: Pain Medication Discharge Plan Discharge Clinical Impression: Osteoarthritis Patient Disposition: Home, Self-Care Instructions: Osteoarthritis (ED) Additional Instructions: Your x-ray shows the you have osteoarthritis in your foot. Return to the ED for increased swelling, redness, severe pain, bluish black discoloration, red streaks, calf pain, fever, chills, inability to walk, or any other concerning symptoms. Recommend follow-up with PCP FINDINGS: Postsurgical changes at the 5th PIP joint. Degenerative changes of the interphalangeal joints and mild osteoarthritis of the 1st MTP joint. No acute fracture or malalignment. Minimal heel spur. XR/XR foot LT min 3V IMPRESSION: Postsurgical changes of the 5th PIP joint. No acute fracture. Electronically signed by: Gael Denis MD 05/27/2024 01:14 PM EDT US/US venous duplex LE LT IMPRESSION: Normal triplex scan without evidence of deep venous thrombosis involving the left lower extremity. Electronically signed by: Gael Denis MD 05/27/2024 03:02 PM EDT Prescriptions: New naproxen 500 mg tablet 500 mg PO BID PRN (Reason: pain) 7 Days Qty: 14 0RF prednisone 20 mg tablet 40 mg PO DAILY 5 Days Qty: 10 0RF No Action amlodipine 5 mg tablet 5 mg PO BID Qty: 30 0RF Rx Instructions: Patient currently on 5 mg daily, is to increase to 5 mg b.i.d. irbesartan 75 mg tablet 75 mg PO DAILY famotidine [Pepcid] 40 mg tablet 40 mg PO DAILY levothyroxine 88 mcg tablet 88 mcg PO DAILY pantoprazole 40 mg tablet,delayed release (DR/EC) 40 mg PO BID latanoprost 0.005 % drops 0 drp ophthalmic (eye) cholecalciferol (vitamin D3) 50 mcg (2,000 unit) capsule 50 mcg PO DAILY Qty: 30 5RF Interventions: ED Discharge Assessment Last Done: 05/27/24 16:36 Discharge Date/Time: 05/27/24 16:37 Print Language: [place] Islander
[2024-05-27 12:25] VITALS: BP 133/49; PULSE 74; RESP 16; TEMP 36.3; O2SAT 100; BMI 26.0
[2024-05-27 12:38] LABS: MANUAL DIFF FLAG NO
[2024-05-27 12:45] LABS: Basophils Absolute Auto 0.1 X10*3/uL (0.0-0.2); Basophils Percent Auto 1.3 % (0-2); Eosinophils Absolute Auto 0.2 X10*3/uL (0.0-0.4); Eosinophils Percent Auto 4.4 % (0-4); Hematocrit 38.8 % (37.0-47.0); Hemoglobin 12.7 g/dl (12.0-16.0); Imm Gran Abs Auto 0.01 X10*3/uL (0.00-0.03); Imm Gran Pct Auto 0.2 % (0.0-0.4); Lymphocytes Absolute Auto 1.8 X10*3/uL (1.2-4.9); Lymphocytes Percent Auto 34.5 % (20-40); Mean Corpuscular HGB Conc 32.7 g/dl (31.0-35.0); Mean Corpuscular Volume 94.6 fL (80.0-98.0); Mean Platelet Volume 11.7 fL (9.4-12.3); Monocytes Absolute Auto 0.4 X10*3/uL (0.1-1.2); Neutrophils Absolute Auto 2.7 x10*3/uL (2.0-8.3); Neutrophils Percent Auto 51.6 % (45-73); Platelet Count 202 X10*3/uL (160-400); Red Cell Distribution Width 13.3 % (11.0-16.0); White Blood Count 5.3 X10*3/uL (4.8-10.8)
[2024-05-27 13:09] LABS: Alanine Aminotransferase 10 U/L (0-31); Albumin Level 4.2 g/dL (3.5-5.0); Alkaline Phosphatase 136 U/L (39-117); Anion Gap 9 (12-20); Aspartate Amino Transferase 13 U/L (5-31); Bilirubin Total 0.4 mg/dL (0.0-1.0); Blood Urea Nitrogen 19 mg/dL (9-16); C Reactive Protein < 0.04 mg/dL (< or = 0.50); Calcium 9.3 mg/dL (8.4-10.2); Carbon Dioxide 30 mmol/L (22-29); Chloride 108 mmol/L (96-108); Creatinine Clr Calc Pharmacy 55.1; Estimated Glomerular Filt Rate > 60; Glucose Random 123 mg/dL (60-115); Magnesium 2.2 mg/dL (1.6-2.6); Potassium 4.1 mmol/L (3.3-5.1); Sodium 143 mmol/L (135-145); Total Protein 7.2 g/dL (6.5-8.0)
[2024-05-27 13:14] LABS: Uric Acid 3.5 mg/dL (2.4-5.7)
[2024-05-27 13:22] LABS: Erythrocyte Sedimentation Rate 7 MM/HR (0-20)
[2024-05-27 14:52] VITALS: BP 148/90; PULSE 90; RESP 14; TEMP 36.2; O2SAT 100
[2024-05-27 16:36] VITALS: BP 148/90; PULSE 90; RESP 14; TEMP 36.2; O2SAT 100
== END 2024-05-27 16:37 | disposition home or self-care (01) ==
PROVIDERS: Physician Assistant Medical; Emergency Provider Emergency Medicine; PCP Internal Medicine Geriatric Medicine
DX: M19.072 Primary osteoarthritis, left ankle and foot (principal); M17.12 Unilateral primary osteoarthritis, left knee; R60.0 Localized edema; M79.672 Pain in left foot; Z79.899 Other long term (current) drug therapy
CPT/HCPCS: 36415; 73630; 80053; 83735; 84550; 85025; 85652; 86140; 93971; 99284

== ENCOUNTER 2024-05-30 09:11 | Outpatient (REF) | payer MEDICARE, MEDICAID, SELFPAY ==
--- NOTE | ~2024-05-30 | MM_ITS ---
EXAMINATION: BONE DENSITOMETRY CLINICAL INDICATION: Osteoporosis. COMPARISON: Previous BD dated 05/05/2022 and baseline BD dated 12/15/2018. TECHNIQUE: Using a [employer] DXA System (software version: 13.1) manufactured by [employer], dual-energy x-ray absorptiometry was performed of the lumbar spine and left hip. The images are of good technical quality. Summary results are attached. FINDINGS: LEFT FEMUR, NECK: Current: BMD 0.709 g/cm2, Z-score -0.5, T-score -2.4, osteopenia. Prior: BMD 0.682 g/cm2. Baseline: BMD 0.741 g/cm2. LEFT FEMUR, TOTAL: Current: BMD 0.771 g/cm2, Z-score -0.2, T-score -1.9, osteopenia, 0.0% change from previous, 0.1% decrease from baseline (<5% change is not significant). Prior: BMD 0.771 g/cm2. Baseline: BMD 0.772 g/cm2. AP SPINE L1-L4: Current: BMD 0.755 g/cm2, Z-score -1.8, T-score -3.5, osteoporosis, 3.0% increase from previous, 6.9% increase from baseline (<5% change is not significant). Prior: BMD 0.733 g/cm2. Baseline: BMD 0.706 g/cm2. IDENTIFIED RISK FACTORS: Early menopause, hysterectomy, recurrent falls, secondary osteoporosis (hyperthyroidism), hysterectomy, family history (parent hip fracture). HISTORY OF FRACTURE: None listed. MEDICATIONS: Calcium, vitamin D. MM/XR DEXA axial skeleton IMPRESSION: 1. DIAGNOSIS: Osteoporosis based on the lowest T-score value of -3.5 in the lumbar spine applying World Health Organization criteria. 2. 10-YEAR FRACTURE RISK PREDICTION, FRAX: According to the guidelines, FRAX calculation should only be performed on patients in the osteopenia bone density category. Therefore, FRAX was not performed on this patient. 3. Treatment Recommendations: NOF guidelines recommend consideration for treatment in postmenopausal women and men age 50 and older presenting with the following: -A hip or vertebral (clinical or morphometric) fracture. -T-score less than or equal to -2.5 at the femoral neck or spine after appropriate evaluation to exclude secondary causes. -Low bone mass at the hip or spine and a 10-year fracture probability by FRAX of greater than or equal to 3% for hip fracture or greater than or equal to 20% for major osteoporotic fracture based on the [place] adapted WHO algorithm. 4. Other Recommendations: All treatment decisions require clinical judgment and consideration of individual patient factors, including patient preferences, comorbidities, previous drug use, risk factors not captured in the FRAX model (e.g. frailty, falls, vitamin D deficiency, increased bone turnover, interval significant decline in bone density) and possible under or overestimation of fracture risk by FRAX. Additional medical evaluation for secondary cause of low bone mineral density may be appropriate. FUTURE SCAN RECOMMENDATION: People with diagnosed cases of osteoporosis or at high risk for fracture should have regular bone mineral density tests. For patients eligible for Medicare, routine testing is allowed once every 2 years. The testing frequency can be increased to one year for patients who have rapidly progressing disease, those who are receiving or discontinuing medical therapy to restore bone mass, or have additional risk factors. Electronically signed by: Ernesto Turcios MD 05/30/2024 06:09 PM EDT
== END 2024-05-30 09:12 | disposition home or self-care (01) ==
LOC: HO.MAMMO 09:11
PROVIDERS: PCP Internal Medicine Geriatric Medicine; Visit Provider Internal Medicine Geriatric Medicine
DX: Z13.820 Encounter for screening for osteoporosis (principal); Z81.0 Family history of intellectual disabilities; M81.0 Age-related osteoporosis without current pathological fracture
CPT/HCPCS: 77080

== ENCOUNTER 2024-09-14 15:40 | Emergency (ER) | payer MEDICARE, MEDICAID, SELFPAY ==
--- NOTE | ~2024-09-14 | CT_ITS ---
CLINICAL HISTORY: LLQ pain CT abdomen and pelvis with contrast Comparison: CT/TN/SR - ABD PELV W IV CON ONLY [id number] - 05/01/19 02:25 EDT Findings: No consolidation or effusion. Heart size is mildly enlarged. Lung bases are clear. The liver is enlarged. Spleen is normal. Adrenal glands, pancreas, gallbladder and kidneys are unremarkable. No ureteral stones. No bowel obstruction, pneumoperitoneum, or pneumatosis. Pelvic contents unremarkable. Normal appendix. No acute fracture. Mild s shaped scoliosis of the thoracolumbar spine. Multilevel degenerative change of the lumbar spine. IMPRESSION: No acute findings. This document has been electronically signed by: Dion Mckeon MD on 09/14/2024 23:28:23
[2024-09-14 16:42] VITALS: BP 157/58; PULSE 79; RESP 16; TEMP 36.2; O2SAT 100; BMI 25.9
--- NOTE | 2024-09-14 16:42 | ED_ITS ---
HPI - General Adult General Chief complaint: Abdominal Pain Stated complaint: stomach pain Time Seen by Provider: 09/14/24 21:54 Source: patient Mode of arrival: ambulatory Limitations: no limitations History of Present Illness ED Provider: Dr. Diana Sanchez HPI narrative: Patient comes to the emergency room complaining of a few hours of intense abdominal pain in the left upper and lower quadrant. Complaining of diarrhea. Patient states that when she was cooking dinner, the pain started immediately. Patient did not eat. Patient denies fever chills, no flank pain, no urinary symptoms. Patient did not take any medication prior to coming to the emergency room. Patient states that she still feels the pain in the left side of the abdomen, seems to be worse on the left lower quadrant. Related Data Home Medications ?Medication ?Instructions ?Recorded ?Confirmed famotidine 40 mg tablet (Pepcid) 40 mg PO DAILY 11/17/21 12/28/22 irbesartan 75 mg tablet 75 mg PO DAILY 11/17/21 12/28/22 levothyroxine 88 mcg tablet 88 mcg PO DAILY 05/25/22 12/28/22 pantoprazole 40 mg tablet,delayed 40 mg PO BID 05/25/22 12/28/22 release latanoprost 0.005 % eye drops 0 drp ophthalmic (eye) 12/28/22 12/28/22 Previous Rx's ?Medication ?Instructions ?Recorded amlodipine 5 mg tablet 5 mg PO BID #30 tabs 11/12/21 cholecalciferol (vitamin D3) 50 50 mcg PO DAILY #30 caps 12/28/22 mcg (2,000 unit) capsule naproxen 500 mg tablet 500 mg PO BID PRN pain 7 days #14 05/27/24 tabs prednisone 20 mg tablet 40 mg (2 x 20 mg) PO DAILY 5 days 05/27/24 #10 tabs loperamide 2 mg capsule 2 mg PO Q4H PRN loose stool #14 09/14/24 (Anti-Diarrheal (loperamide)) caps Allergies Allergy/AdvReac Type Severity Reaction Status Date / Time poly-ureaurethane Allergy Unknown SEVERE Verified 09/14/24 16:44 [From NUVAIL] ANXIETY Review of Systems 2 Review of Systems: Constitutional : No Weight loss, No Fever, No Chills, No Night Sweats, No Fatigue, No Malaise ENT/Mouth : No Hearing loss, No Ear Pain, No Nasal Congestion, No Sinus Pain, No Hoarseness, No sore throat, No Rhinorrhea, No Swallowing Difficulty Eyes: No Eye Pain, No Swelling, No Redness, No Foreign Body, No Discharge, No Vision Changes Cardiovascular : No Chest Pain, No SOB, No Dyspnea on Exertion, No Orthopnea, No Edema, No Palpitations Respiratory : No Cough, No Sputum, No Wheezing, No Smoke Exposure, No Dyspnea Gastrointestinal : No Nausea, No Vomiting, complaining of diarrhea, complaining of left upper and lower abdominal pain, worse in the left lower quadrant. Denies melena Genitourinary : no irregular bleeding, No Dysuria, No Urinary Frequency, No Hematuria, No Urinary Incontinence, No Urgency, No Flank Pain, No Urinary Flow Changes, No Hesitancy Musculoskeletal : No joint pain, No Myalgias, No Joint Swelling Skin : No Skin Lesions, No rash Neuro : No Weakness, No Numbness, No Paresthesias, No Loss of Consciousness, No Dizziness, No Headache Psych : No Anxiety/Panic, No Depression, No SI/HI/AH/VH, No Social Issues, Heme/Lymph: No Bruising, No Bleeding,No Lymphadenopathy Endocrine : No Polyuria, No Polydipsia, No Temperature Intolerance PMFSH Past Medical History Medical History Osteoporosis Acid reflux HTN (hypertension) Surgical History History of eye surgery Hx of tonsillectomy H/O: hysterectomy Family History Family History Brother Prostate cancer Sister Colon cancer Social History Social History Household Members: Spouse Household Members Other:: Alcohol intake: never Smoked in Last 30 Days: No Use of substances other than those prescribed or required for medical reasons: No Advance Directives: No Advance Directives Information Provided: No Do you have a plan to hurt others: No Plan Current occupational status: unemployed Current occupation: right hand dominant Physical Exam ED Vital Signs: Vital Signs - 24 hr 09/14/24 16:42 09/14/24 21:06 Temperature 97.2 F 97.9 F Pulse Rate 79 74 Respiratory Rate 16 20 Blood Pressure 157/58 H 160/69 H Pulse Oximetry 100 100 Oxygen Delivery Method Room Air Room Air BMI result Body Mass Index 25.9 Const Other: Appearance: Alert. Oriented X3. Seems uncomfortable Eyes: Pupils equal, round and reactive to light. ENT: Pharynx normal. Neck: Normal inspection. Neck supple. No lymph nodes noted. No crepitus CVS: Normal heart rate and rhythm. Pulses normal. Normal S1 and S2 Respiratory: No respiratory distress. Breath sounds normal. No Wheezing. No rales Abdomen: Soft , tenderness to palpation in the left upper and lower quadrant, No rigidity. No distention. Skin: Skin warm and dry. Normal skin color. Normal skin turgor. Extremities: No lower extremity edema. No Lacerations. No Rash Neuro: Oriented X 3. No motor deficit. No sensory deficit. Moving all extremities. No slurred speech. CN 2 through 12 grossly intact Psych: calm, cooperative, normal affect Course Course Course Narrative: This is a rapid medical exam performed by Shashank Gonzales NP: Additional HPI, ROS, PE not included below will be deferred to primary provider. Patient is a 74-year-old Lithuanian speaking female with history of HTN, acid reflux presenting to the ED with complaint of severe abdominal pain since 3pm, sweating. Pain is to left side. Stool was green, no vomiting or diarrhea. Plan: labs, UA Medications Administered Discontinued Medications Generic Name Dose Route Start Last Admin Trade Name Freq PRN Reason Stop Dose Admin Lactated Ringer's 1,000 mls @ 999 mls/hr 09/14/24 22:15 09/14/24 22:18 Lr IV 09/14/24 23:15 999 mls/hr .Q1H1M WENDY Administration Iohexol 85 ml 09/14/24 22:51 09/14/24 22:52 Iohexol 350 Mg/Ml 100 Ml Infus..Btl IV 09/14/24 22:52 85 ml ONCE ONE Administration Loperamide HCl 4 mg 09/14/24 22:02 09/14/24 22:18 Loperamide Hcl 2 Mg Capsule PO 09/14/24 22:03 4 mg ONCE ONE Administration Morphine Sulfate 2 mg 09/14/24 22:05 09/14/24 22:18 Morphine Sulfate 2 Mg/Ml Cartridge IVPUSH 09/14/24 22:06 2 mg ONCE ONE Administration Protocol Medical Decision Making Medical Decision Making [facility] Narrative: Patient receiving IV fluids, loperamide, morphine Patient had significant tenderness to palpation in the left upper and lower quadrant. CT scan of the abdomen does not show any acute abnormality My interpretation of labs, normal hematology and chemistry, normal LFTs, urinalysis negative. Serology test negative for COVID and influenza Patient feeling better after hydration, pain medication and diarrhea meds Patient likely had a viral infection Differential Diagnosis Differential Diagnoses: The differential diagnosis associated with the presentation includes (Gastritis, gastroenteritis, colitis, viral illness) Admission/Observation Consideration of admission/observation: Escalation of care including admission/observation considered (Given patient's symptoms and initial presentation, observation has been considered) Lab Data [facility] Lab Attestation statement: I reviewed the patient's lab results. 09/14/24 17:00 09/14/24 17:00 Labs: Lab Results 09/14/24 09/14/24 Range/Units 17:00 22:10 WBC 9.6 (4.8-10.8) X10*3/uL RBC 4.52 (4.20-5.50) X10*6/uL Hgb 13.8 (12.0-16.0) g/dl Hct 42.0 (37.0-47.0) % MCV 92.9 (80.0-98.0) fL MCH 30.5 (27.0-33.0) pg MCHC 32.9 (31.0-35.0) g/dl RDW 13.2 (11.0-16.0) % Plt Count 195 (160-400) X10*3/uL MPV 12.2 (9.4-12.3) fL Immature Gran % (Auto) 0.3 (0.0-0.4) % Neut % (Auto) 68.7 (45-73) % Lymph % (Auto) 20.8 (20-40) % [place] % (Auto) 7.2 (2-11) % Eos % (Auto) 2.1 (0-4) % Baso % (Auto) 0.9 (0-2) % Lymph # (Auto) 2.0 (1.2-4.9) X10*3/uL [place] # (Auto) 0.7 (0.1-1.2) X10*3/uL Eos # (Auto) 0.2 (0.0-0.4) X10*3/uL Baso # (Auto) 0.1 (0.0-0.2) X10*3/uL Abs Immat Gran (auto) 0.03 (0.00-0.03) X10*3/uL Absolute Neuts (auto) 6.6 (2.0-8.3) x10*3/uL Absolute Nucleated RBC 0.000 (0.0-0.012) X10*3/uL Nucleated RBC % (auto) 0.0 (0.0-0.2) /100WBC PT 10.8 L (10.9-12.4) SEC INR 0.9 (0.9-1.1) Sodium 141 (135-145) mmol/L Potassium 4.0 (3.3-5.1) mmol/L Chloride 106 (96-108) mmol/L Carbon Dioxide 28 (22-29) mmol/L Anion Gap 11 L (12-20) BUN 17 H (9-16) mg/dL Creatinine 0.71 (0.5-1.4) mg/dL Estim Creat Clear Calc 62.6 Estimated GFR > 60 Random Glucose 108 (60-115) mg/dL Calcium 9.7 (8.4-10.2) mg/dL Total Bilirubin 0.4 (0.0-1.0) mg/dL AST 20 (5-31) U/L ALT 12 (0-31) U/L Alkaline Phosphatase 132 H (39-117) U/L Total Protein 7.4 (6.5-8.0) g/dL Albumin 4.3 (3.5-5.0) g/dL Lipase 37 (8-78) U/L Urine Color Yellow Urine Appearance Cloudy Urine pH 7.0 (5.0-9.0) Ur Specific St[place] 1.015 (1.005-1.025) Urine Protein Negative (Neg-Trace) mg/dL Urine Glucose (UA) Negative (Negative) mg/dL Urine Ketones Negative (Negative) mg/dL Urine Blood Negative (Negative) Urine Nitrite Negative (Negative) Ur Leukocyte Esterase Negative (Negative) COVID-19 (SURESH) Negative (Negative) COVID-19 Clin Com See Note Influenza Type A (DENI) Negative (Negative) Influenza Type B (DENI) Negative (Negative) Influenza A & B Note See Note Independent Interpretation I performed an independent interpretation of an: CT Scan Interpretation: No consolidation or effusion. Heart size is mildly enlarged. Lung bases are clear. The liver is enlarged. Spleen is normal. Adrenal glands, pancreas, gallbladder and kidneys are unremarkable. No ureteral stones. No bowel obstruction, pneumoperitoneum, or pneumatosis. Pelvic contents unremarkable. Normal appendix. No acute fracture. Mild s shaped scoliosis of the thoracolumbar spine. Multilevel degenerative change of the lumbar spine. IMPRESSION: No acute findings. Critical Care Time Critical Care Time Critical Care Time: Yes Total Critical Care Time: 35 Attestation: I have personally provided critical care time. Time includes review of lab data, radiology results, discussion with consultants, and monitoring for potential decompensation. Intervention performed as documented. Discharge Plan Discharge Clinical Impression: Abdominal pain, Diarrhea, Acute viral syndrome Patient Disposition: Home, Self-Care Instructions: Acute Diarrhea (ED), Abdominal Pain (ED) Additional Instructions: Please follow-up with your primary care physician tomorrow. If you have any worsening or new symptoms, please return to the emergency room or call 911 Prescriptions: New loperamide [Anti-Diarrheal (loperamide)] 2 mg capsule 2 mg PO Q4H PRN (Reason: loose stool) Qty: 14 0RF Rx Instructions: administer after each loose stool until symptoms controlled; do not exceed 8 mg per 24 hrs No Action amlodipine 5 mg tablet 5 mg PO BID Qty: 30 0RF Rx Instructions: Patient currently on 5 mg daily, is to increase to 5 mg b.i.d. naproxen 500 mg tablet 500 mg PO BID PRN (Reason: pain) 7 Days Qty: 14 0RF prednisone 20 mg tablet 40 mg PO DAILY 5 Days Qty: 10 0RF irbesartan 75 mg tablet 75 mg PO DAILY famotidine [Pepcid] 40 mg tablet 40 mg PO DAILY levothyroxine 88 mcg tablet 88 mcg PO DAILY pantoprazole 40 mg tablet,delayed release (DR/EC) 40 mg PO BID latanoprost 0.005 % drops 0 drp ophthalmic (eye) cholecalciferol (vitamin D3) 50 mcg (2,000 unit) capsule 50 mcg PO DAILY Qty: 30 5RF Print Language: Lithuanian
[2024-09-14 17:07] LABS: MANUAL DIFF FLAG NO
[2024-09-14 17:09] LABS: Basophils Absolute Auto 0.1 X10*3/uL (0.0-0.2); Basophils Percent Auto 0.9 % (0-2); Eosinophils Absolute Auto 0.2 X10*3/uL (0.0-0.4); Eosinophils Percent Auto 2.1 % (0-4); Hemoglobin 13.8 g/dl (12.0-16.0); Imm Gran Abs Auto 0.03 X10*3/uL (0.00-0.03); Imm Gran Pct Auto 0.3 % (0.0-0.4); Lymphocytes Percent Auto 20.8 % (20-40); Mean Corpuscular HGB Conc 32.9 g/dl (31.0-35.0); Mean Corpuscular Hemoglobin 30.5 pg (27.0-33.0); Mean Corpuscular Volume 92.9 fL (80.0-98.0); Mean Platelet Volume 12.2 fL (9.4-12.3); Monocytes Absolute Auto 0.7 X10*3/uL (0.1-1.2); Monocytes Percent Auto 7.2 % (2-11); Neutrophils Absolute Auto 6.6 x10*3/uL (2.0-8.3); Neutrophils Percent Auto 68.7 % (45-73); Platelet Count 195 X10*3/uL (160-400); Red Blood Count 4.52 X10*6/uL (4.20-5.50); Red Cell Distribution Width 13.2 % (11.0-16.0); White Blood Count 9.6 X10*3/uL (4.8-10.8)
[2024-09-14 17:15] LABS: Appearance Urine Cloudy; Color Urine Yellow; Glucose Urine UA Negative (Negative); Leukocyte Esterase Urine Negative (Negative); Nitrite Urine Negative (Negative); Specific Gravity - Urine 1.015 (1.005-1.025); Urine Blood Negative (Negative); Urine Ketones Negative (Negative); Urine Protein Negative (Neg-Trace)
[2024-09-14 17:21] LABS: INTERNATIONAL NORM RATIO 0.9 (0.9-1.1); Prothrombin Time 10.8 SEC (10.9-12.4)
[2024-09-14 17:36] LABS: Alanine Aminotransferase 12 U/L (0-31); Albumin Level 4.3 g/dL (3.5-5.0); Alkaline Phosphatase 132 U/L (39-117); Anion Gap 11 (12-20); Aspartate Amino Transferase 20 U/L (5-31); Bilirubin Total 0.4 mg/dL (0.0-1.0); Blood Urea Nitrogen 17 mg/dL (9-16); Calcium 9.7 mg/dL (8.4-10.2); Carbon Dioxide 28 mmol/L (22-29); Chloride 106 mmol/L (96-108); Creatinine Clr Calc Pharmacy 62.6; Estimated Glomerular Filt Rate > 60; Glucose Random 108 mg/dL (60-115); Lipase 37 U/L (8-78); Sodium 141 mmol/L (135-145); Total Protein 7.4 g/dL (6.5-8.0)
--- OUTSIDE RECORDS SUMMARY | 2024-09-14 20:07 | XMS_ITS | Clinical Summary ---
Author Organization [facility] Address [address] [place] [address] Care Team Providers Care Lock And Dam Operator Name Role Phone Nolberto Frederick NP Primary Care Provider [phone] Source Comments PLEASE NOTE, if this patient is a minor, it may be UNLAWFUL to discuss sensitive information that is contained in these records (such as FAMILY PLANNING, MENTAL HEALTH or SUBSTANCE ABUSE) with the minor patient's parent or other person without the patient's specific authorization.[facility] Medications Artificial Tear with Lanolin (TEARS AGAIN) ointIndications:D ry eye, bilateral Apply 1 Units to eye every evening. 1 Tube 3 5 Active dextran 70-hypromellose (TEARS RENEWED) ophthalmic solutionIndicatio ns:Dry eye, bilateral Place 1 Drop into both eyes as needed for dry eyes. 15 mL 6 5 Active lidocaine 5 % ointIndications:M idline low back pain with left-sided sciatica,Cervical vasyl Apply 1 Units topically 2 (two) times daily as needed (pain). 50 g 6 5 Active alendronate (FOSAMAX) 70 mg tabletIndications :Osteoporosis Take 1 Tab by mouth every 7 (seven) days. 4 Tab 6 6 Active omeprazole (PRILOSEC) [address] capsule Take 1 Cap by mouth once daily. 30 Cap 3 6 Active losartan (COZAAR) 25 mg tabletIndications :Essential hypertension Take 1 Tab by mouth once daily 30 Tab 6 6 Active meloxicam (MOBIC) 7.5 mg tabletIndications :Cervicalgia Take 1 Tab by mouth once daily 30 Tab 3 7 Active Active Problems Problem Noted Date Diagnosed Date HTN (hypertension) 04/11/2015 Osteoporosis 04/11/2015 Menopausal state 04/11/2015 Lumbalgia 04/11/2015 Gastritis 04/11/2015 Overview (04/11/2015): Dr Carias recently seen her She had EGD and [place] in [place]. She says had 1 polyp removed ( 2012). Per Dr Carias to repeat Colonosc in 2018 (pt feels was due in 2016. She has some records but fif not bring. Says last EGD had ulcers. She had H.pilory, treated. Was taking Zantac, now on Nexium per Aretha. Has not started yet. Social History Tobacco Use Types Packs/Day Years Used Date Smoking Tobacco: Never Alcohol Use Standard Drinks/Week Comments No 0 (1 standard drink = 0.6 oz pur e alcohol) Social Connections Answer Date Recorded Social Connections and Isolation 0 04/15/2019 Financial Resource Strain Answer Date R ecorded Financial Resource Strain 0 2018 Stress Answer Date Recorded Stress 0 04/15/2019 Physical Activity Answer Date Recorded Physical Activity 0 04/15/2019 Food Insecurity Answer Date Recorded Food 0 04/15/2019 Transportation Needs Answer Date Record ed Transportation 0 04/15/2019 Housing Stability Answer Date Recorded Housing 0 04/15/2019 Safety and Environment Answer Date Randall rded Safety 0 04/15/2019 Utilities Answer Date Recorded Utilities 0 04/15/2019 Employment Answer Date Recorded Employment 0 04/15/2019 Comments No Sex and Gender Information Value Date Recorded Sex Assigned at Not on file Legal Sex Female 11:11 AM PDT Gender Identity Not on file Sexual Orientation Not on file Last Filed Vital Signs Vital Sign Reading Time Taken Comments Blood Pressure 141/71 02/19/2017 10:30 AM EDT Pulse 73 02/19/2017 10:30 AM EDT Temperature 36.8 ??C (98.2 ??F) 02/19/2017 10:30 AM E DT Respiratory Rate 16 02/19/2017 10:30 AM EDT Oxygen Saturation - - Inhaled Oxygen Concentration - - Weight 67.7 kg (149 lb 3.2 oz) 02/19/2017 10:30 AM EDT Height 160 cm (5' 3 ) 02/19/2017 10:30 AM EDT Body Mass Index 26.43 02/19/2017 10:30 AM EDT Plan of Treatment Not on file Insurance MEDICARE - [facility] , [facility] Care Teams Lock And Dam Operator Relationship Specialty Start Date End Date Nolberto Frederick NP [address] [place] [address] PCP - General 06/29/18
--- OUTSIDE RECORDS SUMMARY | 2024-09-14 20:07 | XMS_ITS | Encounter Summary ---
Author Organization [employer] [facility] Address [address] [place] [address] [address] [place] [address] Care Team Providers Care Refiner Operator Name Role Phone Name, Saleem READ Primary Care Provider [phone] Encounter Details Date Type Department Care Team (Late st Contact Info) Description 01/03/[address] [id number] Name, MD Saleem [address] [place] [id number] Social History Tobacco Use Types Packs/Day Years Used Date Smoking Tobacco: Never Smokeless Tobacco: Never Alcohol Use Standard Drinks/Week Comments Never 0 (1 standard drink = 0.6 oz pur e alcohol) Depression Answer Date Recorded Patient Health Questionnaire-9 Score 0 12/17/2022 Depression Answer Date Recorded Patient Health Questionnaire-2 Score 0 12/17/2022 Comments Unknown Sex and Gender Information Value Date Recorded Sex Assigned at Female 06/21/2022 10:35 AM EDT Legal Sex Female 10:35 AM EDT Gender Identity Female 06/21/2022 10:35 AM EDT Sexual Orientation Straight 06/21/2022 10 :35 AM EDT COVID-19 Exposure Response Date Recorded In the last 10 days, have yo u been in contact with someone who was confirmed or suspected to have Coronavirus/COVID-19? No / Unsure 01/05/2023 8:12 AM EDT documented as of this encounter Plan of Treatment Upcoming Encounters Date Type Department Care Team (Late st Contact Info) Description 12/04/2024 9:15 AM EDT Office Visit [facility] [address] [place] [address] Name, MD Saleem [address] [place] [address] documented as of this encounter Procedures Procedure Name Priority Date/Time Associated Diagnosis Comments COLONOSCOPY Routine 10/13/2018 documented in this encounter Results * Colonoscopy (10/13/2018) Colonoscopy Normal Normal 10/13/2018 Jesika Melo - 10/13/2018 10:42 AM EST Recommended 10 year follow up Historical Provider HEALTH MAINTENANCE Final Result documented in this encounter Visit Diagnoses Not on filedocumented in this encounter Additional Health Concerns Assessment Noted Time PHQ-9 Depression Total Score: 0 12/18/19 23 11:15 AM EDT documented as of this encounter Care Teams Refiner Operator Relationship Specialty Start Date End Date Name, MD Saleem [address] [place] [address] PCP - General Family Medicine 11/23/18 documented as of this encounter
--- OUTSIDE RECORDS SUMMARY | 2024-09-14 20:07 | XMS_ITS | Clinical Summary ---
Author Organization [employer] Address [address] [place] [address] 7 [place] [address] Care Team Providers Care Flat Drier Name Role Phone Name, Saleem READ Primary Care Provider [phone] Allergies Active Allergy Reactions Criticality Noted Date Comments Diphenhydramine 11/29/2022 Alendronate 09/22/2023 Heartburn Nalbuphine 11/29/2022 Medications cholecalciferol (Vitamin D-3) 25 MCG (1000 UT) capsuleIndicatio ns:Osteoporosis, unspecified osteoporosis type, unspecified pathological fracture presence Take 1 capsule (25 mcg) by mouth in the morning. 30 capsule 09/22/19 24 025 Active irbesartan (Avapro) 150 MG tablet Take 1 tablet (150 mg) by mouth at bedtime. 30 tablet 10/05/19 24 025 Active famotidine (Pepcid) 20 MG tablet Take 1 tablet (20 mg) by mouth Once per day. 30 tablet 12/26/19 24 025 Active baclofen (Lioresal) 10 MG tabletIndication s:Chronic midline thoracic back pain Take 1 tablet (10 mg) by mouth 2 times daily. 60 tablet 12/26/19 24 Active amLODIPine (Norvasc) 5 MG tabletIndication s:Hypertension, unspecified type TAKE 1 TABLET BY MOUTH EVERY DAY 90 tablet 1 05/09/20 24 Active levothyroxine (Synthroid, Levoxyl) 88 MCG tabletIndication s:Hypothyroidism , unspecified type TAKE 1 TABLET BY MOUTH EVERY MORNING 30 MINUTES BEFORE BREAKFAST 90 tablet 1 05/24/20 24 Active Diclofenac Sodium (Voltaren) 1 % gelIndications:B ilateral foot pain Apply twice a day to affected area 100 g 2 06/28/20 24 Active pantoprazole (ProtoNix) 40 MG EC tablet TAKE 1 TABLET BY MOUTH EVERY DAY 90 tablet 1 08/23/19 25 Active pantoprazole (ProtoNix) 40 MG EC tablet TOME TED TABLETA TODOS LOS PRIDE 90 tablet 1 02/28/20 24 025 Discontinued Active Problems Problem Noted Date Diagnosed Date Calcaneal spur of right foot 06/28/2024 Strain of flexor muscle of left hip 06/28/2024 Acid reflux 12/17/2022 Overview (06/28/2024): And hiatal hernia and has seen GI in the past at several different practices ([facility] [place], [place], [place] and [facility]). EGD was negative for malignancy/Antonio's back in 2018 at [facility]. In 2022 Dr Fleming for GI at [facility] that did a Barium swallow and 24 ph monitoring and recommended a referral to surgery Seasonal allergic reaction 01/29/2019 Glaucoma 11/23/2018 H/O: hysterectomy 11/23/2018 Hiatal hernia 11/23/2018 Overview (12/17/2022): Dr Carias recently seen her She had EGD and colonoscopy in [place]. She says had 1 polyp removed ( 2012). Per Dr Carias to repeat Colonosc in 2018 (pt feels was due in 2016. She has some records but fif not bring. Says last EGD had ulcers. She had H.pilory, treated. Was taking Zantac, now on Nexium per Aretha. Has not started yet. History of tonsillectomy 11/23/2018 Hypothyroidism 11/23/2018 Migraine 11/23/2018 HTN (hypertension) 04/11/2015 Lumbalgia 04/11/2015 Menopausal state 04/11/2015 Osteoporosis 04/11/2015 Resolved Problems Problem Noted Date Diagnosed Date Resolved Date Callosity 12/17/2022 09/22/2023 Ingrown toenail of left foot 12/17/2022 09/22/2023 Heartburn 11/23/2018 09/22/2023 Shoulder pain 11/23/2018 09/22/2023 Encounters Date Type Department Care Team Description 09/14/2024 Orders Only GENERIC EXTERNAL DATA DEPARTMENT Provider, Generic External Data 08/22/2024 Refill [facility] [address] [place] [address] Saleem Snyder MD 06/28/2024 9:00 AM EST Office Visit [facility] [address] [place] [address] Name, MD Saleem Hypertension, unspecified type (Primary Dx); Bilateral foot pain; Age related osteoporosis, unspecified pathological fracture presence; Mammogram declined; Vaccination refused by patient from Last 3 Months Social History Tobacco Use Types Packs/Day Years Used Date Smoking Tobacco: Never Smokeless Tobacco: Never Tobacco Cessation:Counseling Given: Not Answered Alcohol Use Standard Drinks/Week Comments Never 0 (1 standard drink = 0.6 oz pur e alcohol) Alcohol Answer Date Recorded Frequency of Alcohol Consumption Not on file 06/28/2024 Average Number of Drinks Not on file 024 Frequency of Binge Drinking Not on file 02/2024 Score 0 06/28/2024 Depression Answer Date Recorded Patient Health Questionnaire-9 Score 0 12/26/2023 Patient Health Questionnaire-9 Score 0 12/26/2023 Last PHQ-9: Questionnaire Data Not on file 0 12/26/2023 Housing Stability Answer Date Recorded What is your housing situation today? I have davidson adrian 12/26/[address] you li ve. Do you have problems with any of the following? None of the above 12/26/2023 Food Insecurity Answer Date Recorded Within the past 12 months, y ou worried that your food would run out before you got money to buy more: Never True 12/26/2023 Within the past 12 months,th e food you bought just didn't last and you didn't have enough money to get more: Never True 01/2024 Transportation Answer Date Recorded In the past 12 months, has l ack of transportation kept you from medical appts, meetings, work or from getting things needed for daily living? No 12/26/2023 Utilities Answer Date Recorded In the past 12 months, has t he electric, gas, oil or water company threatened to shut off services in your home? No 12/26/2023 Depression Answer Date Recorded Patient Health Questionnaire-2 Score 0 12/26/2023 Comments Unknown Sex and Gender Information Value Date Recorded Sex Assigned at Female 06/21/2022 10:35 AM EDT Legal Sex Female 10:35 AM EDT Gender Identity Female 06/21/2022 10:35 AM EDT Sexual Orientation Straight 06/21/2022 10 :35 AM EDT Last Filed Vital Signs Vital Sign Reading Time Taken Comments Blood Pressure 141/78 06/28/2024 9:14 AM EST Pulse 66 06/28/2024 9:00 AM EST Temperature 36.8 ??C (98.2 ??F) 06/28/2024 9:00 AM ES T Respiratory Rate 16 06/28/2024 9:00 AM EST Oxygen Saturation 97% 06/28/2024 9:00 AM EST Inhaled Oxygen Concentration - - Weight 67.2 kg (148 lb 3.2 oz) 06/28/2024 9:00 A M EST Height 165.1 cm (5' 5 ) 06/28/2024 9:00 AM EST Body Mass Index 24.66 06/28/2024 9:00 AM EST Plan of Treatment Upcoming Encounters Date Type Department Care Team (Late st Contact Info) Description 12/04/2024 9:15 AM EDT Office Visit [facility] [address] [place] [phone] Name, MD Saleem [address] [place] [address] Health Maintenance Due Date Last Done Comments CT Colonography 1949 FIT DNA/Cologuard 1949 FIT 1949 FOBT 1950 Sigmoidoscopy 1949 Hepatitis C Screening 1967 DTaP/Tdap/Td Vaccines (1 - Tdap) 1968 Zoster Vaccines (1 of 2) 1999 Pneumococcal Vaccine: 65+ Years (1 of 1 - PCV) 2014 Dental X-Ray: Bitewings 11/21/2023 11/19/2022 Dental Oral Exam 03/30/2024 09/29/2023, 11/19/2022 Dental Prophylaxis 03/30/2024 09/29/2023, 11/29/2022 COVID-19 Vaccine (3 - 2023-2 5 season) 2024 11/06/2020, 10/09/2020 Influenza Vaccine (#1) 2024 RSV Patients and Patients Aged 60 years or older (1 - 1-dose 75+ series) 2024 Depression Screening 12/25/2024 12/26/2023, 12/26/2023 SDOH Screening 12/25/2024 12/26/2023 Alcohol/Substance Use Screening 06/28/2025 06/28/2024 Tobacco Screening 06/28/2025 06/28/2024 Dental X-Ray: Full Mouth 11/20/2025 11/19/2022 Lipid Panel 10/23/2026 10/23/2021, 03/26/2021 Colonoscopy 10/13/2028 10/13/2018 Colorectal Cancer Screening 10/13/2028 HIB Vaccines Aged Out No longer eligi ble based on patient's age to complete this topic HPV Vaccines Aged Out No longer eligi ble based on patient's age to complete this topic Hepatitis A Vaccines Aged Out No long er eligible based on patient's age to complete this topic Hepatitis B Vaccines Aged Out No long er eligible based on patient's age to complete this topic IPV Vaccines Aged Out No longer eligi ble based on patient's age to complete this topic Meningococcal Vaccine Aged Out No dena diego eligible based on patient's age to complete this topic RSV under 20 months Aged Out No longe r eligible based on patient's age to complete this topic Rotavirus Vaccines Aged Out No longer eligible based on patient's age to complete this topic Procedures Procedure Name Priority Date/Time Associated Diagnosis Comments LIPASE Routine 09/14/2024 5:00 PM EST COMPREHENSIVE METABOLIC PANEL Routine 09/14/2024 5:00 PM EST PROTHROMBIN TIME-INR Routine 09/14/2024 5:00 PM EST URINALYSIS WITH REFLEX MICROSCOPIC Routine 09/14/2024 5:00 PM EST CBC WITH AUTO DIFFERENTIAL Routine 09/14/2024 5:00 PM EST Full PROPHYLAXIS - ADULT Routine 09/29/2023 1:00 PM EST PERIODIC ORAL EVALUATION - ESTABLISHED PATIENT Routine 09/29/2023 1:00 PM EST Dental caries DIAGNOSTIC - DIAGNOSTIC IMAGING - INTRAORAL - COMPREHENSIVE SERIES OF RADIOGRAPHIC IMAGES Routine 11/19/2022 2:00 PM EDT Dental caries LIPID PANEL, STANDARD Routine 10/23/2021 9:47 AM EST HM COLONOSCOPY Routine 10/13/2018 from Last 3 Months or Most Recently Relevant to Health Maintenance Results * CBC auto differential (09/14/2024 5:00 PM EST) White Blood Count 9.6 4.8 - 10.8 X10*3/uL [facility] Red Blood Count 4.52 4.20 - 5.50 X10*6/uL [facility] Hemoglobin 13.8 12.0 - 16.0 g/dl [facility] Hematocrit 42.0 37.0 - 47.0 % [facility] Mean Corpuscular Volume 92.9 80.0 - 98.0 fL [facility] Mean Corpuscular Hemoglobin 30.5 27.0 - 33.0 pg [facility] Mean Corpuscular HGB Conc 32.9 31.0 - 35.0 g/dl [facility] Red Cell Distribution Width 13.2 11.0 - 16.0 % [facility] Platelet Count 195 160 - 400 X10*3/uL [facility] Mean Platelet Volume 12.2 9.4 - 12.3 fL [facility] Neutrophils Percent Auto 68.7 45 - 73 % [facility] Imm Gran Pct Auto 0.3 0.0 - 0.4 % [facility] Lymphocytes Percent Auto 20.8 20 - 40 % [facility] Monocytes Percent Auto 7.2 2 - 11 % [facility] Eosinophils Percent Auto 2.1 0 - 4 % [facility] Basophils Percent Auto 0.9 0 - 2 % [facility] NRBC Pct Auto 0.0 0.0 - 0.2 /100WBC [facility] Neutrophils Absolute Auto 6.6 2.0 - 8.3 x10*3/uL [facility] Imm Gran Abs Auto 0.03 0.00 - 0.03 X10*3/uL [facility] Lymphocytes Absolute Auto 2.0 1.2 - 4.9 X10*3/uL [facility] Monocytes Absolute Auto 0.7 0.1 - 1.2 X10*3/uL [facility] Eosinophils Absolute Auto 0.2 0.0 - 0.4 X10*3/uL [facility] Basophils Absolute Auto 0.1 0.0 - 0.2 X10*3/uL [facility] NRBC Abs Auto 0.000 0.0 - 0.012 X10*3/uL [facility] 09/14/2024 5:00 PM EST 09/14/2024 5:06 PM EST us Generic External Data Provider LAB BLOOD ORDERAB LES Final Result [facility] [address] [place] [address] [phone] * Urinalysis w/reflex microscopic (09/14/2024 5:00 PM EST) Color Urine Yellow [facility] Appearance Urine Cloudy [facility] PH 7.0 5.0 - 9.0 [facility] Glucose Urine UA Negative Negative mg/dL [facility] Urine Blood Negative Negative [facility] Specific [place] - Urine 1.015 1.005 - 1.025 [facility] Urine Protein Negative Neg-Trace mg/dL [facility] Urine Ketones Negative Negative mg/dL [facility] Nitrite Urine Negative Negative [facility] Leukocyte Esterase Urine Negative Negative [facility] 09/14/2024 5:00 PM EST 09/14/2024 5:06 PM EST Narrative [facility] - 09/14/2024 5:19 PM EST Urine, Clean Catch us Generic External Data Provider LAB URINE ORDERAB LES Final Result Performing Organization Address City/[facility]/ZIP Co de Phone Number [facility] [address] [place] [phone] * (ABNORMAL) Prothrombin Time-INR (09/14/2024 5:00 PM EST) Prothrombin Time 10.8(L) 10.9 - 12.4 SEC [facility] INTERNATIONAL NORM RATIO 0.9 0.9 - 1.1 [facility] Comment:INTERNATIONAL NORMAL IZED RATIO (INR) REFERENCE RANGES Reference RangeFor patients not on anticoagulant therapy: 0.9 - 1.1INR ranges for oral anticoagulanttherapy:For prevention and treatment of venous thrombosis and pulmonary embolism: 2.0 - 3.0For acute myocardial infarction with aspirin therapy: 2.0 - 3.0For acute myocardial infarction without aspirin therapy: 3.0 - 4.0For patients with mechanical prosthetic heart valves: 2.5 - 3.5 09/14/2024 5:00 PM EST 09/14/2024 5:06 PM EST us Generic External Data Provider LAB BLOOD ORDERAB LES Final Result Performing Organization Address [facility] Co de Phone Number [facility] [address] [place] [phone] * Lipase (09/14/2024 5:00 PM EST) Pathologist [facility] Lipase 37 8 - 78 U/L [facility] 09/14/2024 5:00 PM EST 09/14/2024 5:06 PM EST us Generic External Data Provider LAB BLOOD ORDERAB LES Final Result Performing Organization Address [facility]/ZIP Co de Phone Number [facility] [address] [place] [phone] * (ABNORMAL) Comprehensive Metabolic Panel (09/14/2024 5:00 PM EST) Sodium 141 135 - 145 mmol/L [facility] Potassium 4.0 3.3 - 5.1 mmol/L [facility] Chloride 106 96 - 108 mmol/L [facility] Carbon Dioxide 28 22 - 29 mmol/L [facility] Anion Gap 11(L) 12 - 20 [facility] Urea Nitrogen (BUN) 17(H) 9 - 16 mg/dL [facility] Creatinine, Serum 0.71 0.5 - 1.4 mg/dL [facility] Creatinine Clr Calc Pharmacy 62.6 [facility] Comment:Provided height and weight: 160.02 cm,66.2 kg.eGFR (calculated from the MDRD study equation) and eCrCl(calculated from the Cockcroft-Gault equation) are based ondifferent parameters and may not yield comparable results.If eCrCl result is absurd, please check patient'sheight/weight. Estimated Glomerular Filt Rate >60 [facility] Comment:Chronic Kidney Disea se: Estimated GFR < 60 mL/min/1.02l2Buiswq Kidney Disease: Estimated GFR < 15 mL/min/1.73m2 Glucose 108 60 - 115 mg/dL [facility] Calcium 9.7 8.4 - 10.2 mg/dL [facility] Bilirubin, Total 0.4 0.0 - 1.0 mg/dL [facility] Aspartate Amino Transferase 20 5 - 31 U/L [facility] Alanine Aminotransferase 12 0 - 31 U/L [facility] Total Protein 7.4 6.5 - 8.0 g/dL [facility] Albumin Level 4.3 3.5 - 5.0 g/dL [facility] Alkaline Phosphatase 132(H) 39 - 117 U/L [facility] 09/14/2024 5:0 0 PM EST 09/14/2024 5:06 PM EST us Generic External Data Provider LAB BLOOD ORDERAB LES Final Result [facility] [address] [place] [phone] * LIPID PANEL, STANDARD (10/23/2021 9:47 AM EST) Chol/HDLC Ratio 3.0 <5.0 (calc) [facility] Cholesterol, Total 173 <200 mg/dL [facility] HDL Cholesterol 58 > OR = 50 mg/dL [facility] LDL Cholesterol 98 mg/dL (calc) [facility] Comment: Reference range: <100 ?? Desirable range <100 mg/dL for primary prevention; ?? <70 mg/dL for patients with CHD or diabetic patients ?? with > or = 2 CHD risk factors. ?? LDL-C is now calculated using the Ivana ?? calculation, which is a validated novel method providing ?? better accuracy than the Friedewald equation in the ?? estimation of LDL-C. ?? Aldair DUNLAP et al. JEREMY. 2013;310(19): 3618-0663 ?? (http://education.TeleFlip/faq/GGD955) Non-HDL Cholesterol 115 <130 mg/dL (calc) [facility] Comment: For patients with diabetes plus 1 major ASCVD risk ?? factor, treating to a non-HDL-C goal of <100 mg/dL ?? (LDL-C of <70 mg/dL) is considered a therapeutic ?? option. Triglycerides 77 <150 mg/dL [facility] 10/23/2021 9:47 AM EST Saleem Snyder MD LAB BLOOD ORDERABLES Final Resul t [facility] [address] [place] [address] * Hm Colonoscopy (10/13/2018) Colonoscopy Normal Normal 10/13/2018 Narrative Jesika Leon - 10/13/2018 10:42 AM EST Recommended 10 year follow up Historical Provider HEALTH MAINTENANCE Final Result from Last 3 Months or Most Recently Relevant to Health Maintenance Insurance [facility] MEDICARE ADVANTAGE HMO DENTAL [facility] DENTAL - HSN FULL (MEDICAID) Care Teams Flat Drier Relationship Specialty Start Date End Date Name, MD Saleem [address] [place] [phone] PCP - General Family Medicine 11/23/18
--- OUTSIDE RECORDS SUMMARY | 2024-09-14 20:07 | XMS_ITS | Encounter Summary ---
Author Organization [employer] Address [address] [facility] 7 [place] [address] Care Team Providers Care Rubber Tire Curer Name Role Phone Name, Saleem READ Primary Care Provider [phone] Reason for Visit * Reason Onset Date Comments Reschedule 08/11/2023 Encounter Details Date Type Department Care Team ([facility] st Contact Info) Description 08/11/2023 Telephone [facility] [address] [place], [place] [phone] Name, MD Saleem [address] [place] [address] Reschedule Social History Tobacco Use Types Packs/Day Years Used Date Smoking Tobacco: Never Smokeless Tobacco: Never Alcohol Use Standard Drinks/Week Comments Never 0 (1 standard drink = 0.6 oz pur e alcohol) Depression Answer Date Recorded Patient Health Questionnaire-9 Score 0 12/17/2022 Housing Stability Answer Date Recorded What is your housing situation today? I have housing today, but I am worried about losing housing in the future 06/25/[address] you li ve. Do you have problems with any of the following? None of the above 06/25/2023 Food Insecurity Answer Date Recorded Within the past 12 months, y ou worried that your food would run out before you got money to buy more: Never True 06/25/2023 Within the past 12 months,th e food you bought just didn't last and you didn't have enough money to get more: Never True 11/2022 Transportation Answer Date Recorded In the past 12 months, has l ack of transportation kept you from medical appts, meetings, work or from getting things needed for daily living? No 06/25/2023 Utilities Answer Date Recorded In the past 12 months, has t he electric, gas, oil or water company threatened to shut off services in your home? No 06/25/2023 Depression Answer Date Recorded Patient Health Questionnaire-2 Score 0 12/17/2022 Comments Unknown Sex and Gender Information Value Date Recorded Sex Assigned at Female 06/21/2022 10:35 AM EDT Legal Sex Female 10:35 AM EDT Gender Identity Female 06/21/2022 10:35 AM EDT Sexual Orientation Straight 06/21/2022 10 :35 AM EDT documented as of this encounter Miscellaneous Notes * Telephone Encounter - Jossy Riggins - 08/11/2023 2:35 PM EST Tc from pt requesting r/s 04/15/2023 f/u appt with PCP documented in this encounter Plan of Treatment Upcoming Encounters Date Type Department Care Team (Late st Contact Info) Description 12/04/2024 9:15 AM EDT Office Visit [facility] [address] [place] [phone] Name, MD Saleem [address] [place] [address] documented as of this encounter Visit Diagnoses Not on filedocumented in this encounter Additional Health Concerns Assessment Noted Time PHQ-9 Depression Total Score: 0 12/18/19 23 11:15 AM EDT documented as of this encounter Care Teams Rubber Tire Curer Relationship Specialty Start Date End Date Name, MD Saleem [address] [place] [phone] PCP - General Family Medicine 11/23/18 documented as of this encounter
--- OUTSIDE RECORDS SUMMARY | 2024-09-14 20:07 | XMS_ITS | Encounter Summary ---
Author Organization [facility] Address [address] [place] [address] 7 [place] [address] Care Team Providers Care Biscuit Maker Name Role Phone Name, Saleem READ Primary Care Provider [phone] Encounter Details Date Type Department Care Team (Late st Contact Info) Description 08/10/2022 Orders Only [facility] [address] [place] [address] [phone] Snow Sims LPN Social History Tobacco Use Types Packs/Day Years Used Date Smoking Tobacco: Never Assessed Comments Unknown Sex and Gender Information Value [...] Description 12/04/2024 9:15 AM EDT Office Visit [facility] [address] [place] [address] [phone] Name, MD Saleem [address] [place] [address] documented as of this encounter Procedures Procedure Name Priority Date/Time Associated Diagnosis Comments VITAMIN D,25-OH,TOTAL,IA Routine 09/28/2022 8:29 AM EST documented in this encounter Results * Vitamin D, 25-Hydroxy, Total, Immunoassay (09/28/2022 8:29 AM EST) Vitamin D 25-OH Total 14.5 >30 ng/mL [facility] Comment:Health Based Referen ce Values*< 20 ng/mL Izreelxen43-64 ng/mL Insufficient> 30 ng/mL Sufficient*Ryley VERAS. N Engl J Med. 2007;357:266-280Care must be taken in interpreting Vitamin D results fromdifferent laboratories and methodologies. Published datademonstrated that results from patients undergoinghemodialysis may show a negative bias when tested withvarious automated 25-OH vitamin D assays when compared toLC-MS/MS.When testing samples from patients whose predominant form ofVitamin D is Vitamin D2, such as patients receiving VitaminD2 supplementation, results that are subtherapeutic shouldbe confirmed with another method such as LC-MS/MS. 09/28/2022 8:29 AM EST 09/28/2022 10:41 AM EST [facility] External Provider LAB BLO OD ORDERABLES Final Result [facility] [address] [place] [phone] documented in this encounter Visit Diagnoses Not on filedocumented in this encounter Care Teams Biscuit Maker Relationship Specialty Start Date End Date Name, MD Saleem [address] [place] [address] PCP - General Family Medicine 11/23/18 documented as of this encounter
--- OUTSIDE RECORDS SUMMARY | 2024-09-14 20:07 | XMS_ITS | Encounter Summary ---
Author Organization [employer] Address [address] [facility] [address] [place] [address] Care Team Providers Care Nuclear Medicine Technician Name Role Phone Name, Saleem READ Primary Care Provider [phone] Encounter Details Date Type Department Care Team (Late st Contact Info) Description 09/14/2024 Orders Only GENERIC EXTERNAL DATA DEPARTMENT Provider, Generic External Data Social History Tobacco Use Types Packs/Day Years [...] Description 12/04/2024 9:15 AM EDT Office Visit [facility] [address] [place] [address] Name, MD Saleem [address] [place] [address] documented as of this encounter Procedures Procedure Name Priority Date/Time Associated Diagnosis Comments CBC WITH AUTO DIFFERENTIAL Routine 09/14/2024 5:00 PM EST URINALYSIS WITH REFLEX MICROSCOPIC Routine 09/14/2024 5:00 PM EST PROTHROMBIN TIME-INR Routine 09/14/2024 5:00 PM EST LIPASE Routine 09/14/2024 5:00 PM EST COMPREHENSIVE METABOLIC PANEL Routine 09/14/2024 5:00 PM EST documented in this encounter Results * Lipase (09/14/2024 5:00 PM EST) Lipase 37 8 - 78 U/L [facility] 09/14/2024 5:00 PM EST 09/14/2024 5:06 PM EST us Generic External Data Provider LAB BLOOD ORDERAB LES Final Result Performing Organization Address [facility]/State/ZIP Co de Phone Number [facility] [address], [place] [phone] * (ABNORMAL) Comprehensive Metabolic Panel (09/14/2024 5:00 PM EST) Sodium 141 135 - 145 mmol/L [facility] Potassium 4.0 3.3 - 5.1 mmol/L [facility] Chloride 106 96 - 108 mmol/L [facility] Carbon Dioxide 28 22 - 29 mmol/L [facility] Anion Gap 11(L) 12 - 20 [facility] Urea Nitrogen (BUN) 17(H) 9 - 16 mg/dL [facility] Creatinine, Serum 0.71 0.5 - 1.4 mg/dL [facility] Creatinine Clr Calc Pharmacy 62.6 [facility] Comment:Provided height and weight: 160.02 cm,66.2 kg.eGFR (calculated from the MDRD study equation) and eCrCl(calculated from the Cockcroft-Gault equation) are based ondifferent parameters and may not yield comparable results.If eCrCl result is absurd, please check patient'sheight/weight. Estimated Glomerular Filt Rate >60 [facility] Comment:Chronic Kidney Disea se: Estimated GFR < 60 mL/min/[id number] Kidney Disease: Estimated GFR < 15 mL/min/1.73m2 Glucose 108 60 - 115 mg/dL [facility] Calcium 9.7 8.4 - 10.2 mg/dL [facility] Bilirubin, Total 0.4 0.0 - 1.0 mg/dL [facility] Aspartate Amino Transferase 20 5 - 31 U/L [facility] Alanine Aminotransferase 12 0 - 31 U/L [facility] Total Protein 7.4 6.5 - 8.0 g/dL [facility] Albumin Level 4.3 3.5 - 5.0 g/dL [facility] Alkaline Phosphatase 132(H) 39 - 117 U/L [facility] 09/14/2024 5:00 PM EST 09/14/2024 5:06 PM EST us Generic External Data Provider LAB BLOOD ORDERAB LES Final Result Performing Organization Address [facility]/ZIP Co de Phone Number [facility] [address] [place] [phone] * (ABNORMAL) Prothrombin Time-INR (09/14/2024 5:00 PM EST) Prothrombin Time 10.8(L) 10.9 - 12.4 SEC [facility] INTERNATIONAL NORM RATIO 0.9 0.9 - 1.1 [facility] Comment:INTERNATIONAL NORMAL IZED RATIO (INR) REFERENCE [...] 5:00 PM EST 09/14/2024 5:06 PM EST Generic External Data Provider LAB BLOOD ORDERAB LES Final Result Performing Organization Address [facility] Co de Phone Number [facility] [address] [place] [phone] * Urinalysis w/reflex microscopic (09/14/2024 5:00 PM EST) Color Urine Yellow [facility] Appearance Urine Cloudy [facility] PH 7.0 5.0 - 9.0 [facility] Glucose Urine UA Negative Negative mg/dL [facility] Urine Blood Negative Negative [facility] Specific [place] - Urine 1.015 1.005 - 1.025 [facility] Urine Protein Negative Neg-Trace mg/dL [facility] Urine Ketones Negative Negative mg/dL [facility] Nitrite Urine Negative Negative [facility] Leukocyte Esterase Urine Negative Negative [facility] 09/14/2024 5:00 PM EST 09/14/2024 5:06 PM EST Narrative [facility] - 09/14/2024 5:19 PM EST Urine, Clean Catch us Generic External Data Provider LAB URINE ORDERAB LES Final Result [facility] [address] [place] [phone] * CBC auto differential (09/14/2024 5:00 PM EST) White Blood Count 9.6 4.8 - 10.8 X10*3/uL [facility] Red Blood Count 4.52 4.20 - 5.50 X10*6/uL [facility] Hemoglobin 13.8 12.0 - 16.0 g/dl [facility] Hematocrit 42.0 37.0 - 47.0 % [facility] Mean Corpuscular Volume 92.9 80.0 - 98.0 fL [facility] Mean Corpuscular Hemoglobin 30.5 27.0 - 33.0 pg [facility] Mean Corpuscular HGB Conc 32.9 31.0 - 35.0 g/dl [facility] Red Cell Distribution Width 13.2 11.0 - 16.0 % [facility] Platelet Count 195 160 - 400 X10*3/uL [facility] Mean Platelet Volume 12.2 9.4 - 12.3 fL [facility] Neutrophils Percent Auto 68.7 45 - 73 % [facility] Imm Gran Pct Auto 0.3 0.0 - 0.4 % [facility] Lymphocytes Percent Auto 20.8 20 - 40 % [facility] Monocytes Percent Auto 7.2 2 - 11 % [facility] Eosinophils Percent Auto 2.1 0 - 4 % [facility] Basophils Percent Auto 0.9 0 - 2 % [facility] NRBC Pct Auto 0.0 0.0 - 0.2 /100WBC [facility] Neutrophils Absolute Auto 6.6 2.0 - 8.3 x10*3/uL [facility] Imm Gran Abs Auto 0.03 0.00 - 0.03 X10*3/uL [facility] Lymphocytes Absolute Auto 2.0 1.2 - 4.9 X10*3/uL [facility] Monocytes Absolute Auto 0.7 0.1 - 1.2 X10*3/uL [facility] Eosinophils Absolute Auto 0.2 0.0 - 0.4 X10*3/uL [facility] Basophils Absolute Auto 0.1 0.0 - 0.2 X10*3/uL [facility] NRBC Abs Auto 0.000 0.0 - 0.012 X10*3/uL [facility] 09/14/2024 5:00 PM EST 09/14/2024 5:06 PM EST us Generic External Data Provider LAB BLOOD ORDERAB LES Final Result Performing Organization Address City/State/[facility] Co de Phone Number [facility] [address] [place] [phone] documented in this encounter Visit Diagnoses Not on filedocumented in this encounter Additional Health Concerns Assessment Noted Time PHQ-9 Depression Total Score: 0 12/26/19 24 8:54 AM EDT documented as of this encounter Care Teams Nuclear Medicine Technician Relationship Specialty Start Date End Date Name, MD Saleem [address] [place] [phone] PCP - General Family Medicine 11/23/18 documented as of this encounter
--- OUTSIDE RECORDS SUMMARY | 2024-09-14 20:07 | XMS_ITS | Encounter Summary ---
Author Organization [employer] [facility] Address [address] [place] [phone] Care Team Providers Care Patient Services Rep Name Role Phone Name, Saleem READ Primary Care Provider [phone] Encounter Details Date Type Department Care Team (Late st Contact Info) Description 11/01/2022 Orders Only [facility] [address] [place] [address] Rosangela Hensley LPN Social History Tobacco Use Types Packs/Day [...] Description 12/04/2024 9:15 AM EDT Office Visit [facility] [address] [place] [address] Name, MD Saleem [address] [place] [address] documented as of this encounter Visit Diagnoses Not on filedocumented in this encounter Care Teams Patient Services Rep Relationship Specialty Start Date End Date Saleem Snyder MD [address] [place] [address] PCP - General Family Medicine 11/23/18 documented as of this encounter
--- OUTSIDE RECORDS SUMMARY | 2024-09-14 20:07 | XMS_ITS | Encounter Summary ---
Author Organization [employer] Address [address] [facility] 7 [place] [address] Care Team Providers Care Post Office Clerk Name Role Phone Name, Saleem READ Primary Care Provider [phone] Reason for Visit * Reason Comments Med Refill Encounter Details Date Type Department Care Team ([facility] st Contact Info) Description 08/22/2024 Refill [facility] [address] [place], [place] [phone] Name, MD Saleem [address] [place] [address] Social History Tobacco Use Types Packs/Day Years [...] Description 12/04/2024 9:15 AM EDT Office Visit [facility] [address] [place] [address] NameSaleem MD [address] [place] [address] documented as of this encounter Visit Diagnoses Not on filedocumented in this encounter Additional Health Concerns Assessment Noted Time PHQ-9 Depression Total Score: 0 12/26/19 24 8:54 AM EDT documented as of this encounter Care Teams Post Office Clerk Relationship Specialty Start Date End Date NameSaleem MD [address] [place] [phone] PCP - General Family Medicine 11/23/18 documented as of this encounter
[2024-09-14 21:06] VITALS: BP 160/69; PULSE 74; RESP 20; TEMP 36.6; O2SAT 100
[2024-09-14] MEDS: Loperamide HCl 2 MG CAPSULE 4 MG PO (22:18)
[2024-09-14] MEDS: Lactated Ringers 1,000 ML 999 ML IV (22:18)
[2024-09-14] MEDS: Morphine Sulfate 2 MG/ML CARTRIDGE IVPUSH (22:18)
[2024-09-14 22:32] LABS: COVID-19 Test Negative (Negative); IDNOW Serial# 55D5AD1C; IDNOW Serial# 58CA691E; Influenza A Negative (Negative); Influenza B2 Negative (Negative)
[2024-09-14] MEDS: iohexoL 350 MG/ML 100 ML INFUS..BTL 85 ML IV (22:52)
[2024-09-15 00:08] VITALS: BP 152/83; PULSE 76; RESP 16; TEMP 36.4; O2SAT 99
== END 2024-09-15 00:09 | disposition home or self-care (01) ==
PROVIDERS: Registered Nurse Emergency; Emergency Provider Emergency Medicine; PCP Internal Medicine Geriatric Medicine
DX: B34.9 Viral infection, unspecified (principal); R10.2 Pelvic and perineal pain; R19.7 Diarrhea, unspecified; Z11.52 Encounter for screening for COVID-19; Z79.899 Other long term (current) drug therapy
CPT/HCPCS: 36415; 74177; 80053; 81003; 83690; 85025; 85610; 87502; 87635; 96374; 99284; J2270; J7120; Q9967

== ENCOUNTER → 2024-09-14 22:02 | Outpatient (BNV) | payer MEDICARE, MEDICAID, SELFPAY | PROVIDERS: Emergency Provider Emergency Medicine; PCP Internal Medicine Geriatric Medicine; Visit Provider Radiology Diagnostic Radiology | DX: R10.32 Left lower quadrant pain (principal) | CPT/HCPCS: 74177 ==

== ENCOUNTER 2025-01-24 11:20 | Outpatient (REF) | payer MEDICARE, MEDICAID, SELFPAY ==
--- NOTE | ~2025-01-24 | XR_ITS ---
EXAMINATION: XR CERVICAL SPINE CLINICAL INFORMATION: Neck and upper back pain for a month, no trauma COMPARISON: August 24, 2016 TECHNIQUE: 5 views of the cervical spine, . FINDINGS: The vertebral alignment is normal. No intrinsic bony abnormality. The disc heights and neural foramina are well maintained. The endplates and posterior elements are normal. No fracture or subluxation. No bony foraminal narrowing. The surrounding prevertebral soft tissues are unremarkable. XR/XR cervical spine 4V IMPRESSION: Unremarkable cervical spine. Electronically signed by: Magno Neely MD 01/24/2025 01:11 PM EDT
--- NOTE | ~2025-01-24 | XR_ITS ---
EXAMINATION: XR THORACIC SPINE CLINICAL INFORMATION: pain COMPARISON: None available. TECHNIQUE: AP and lateral views of the thoracic spine were obtained. FINDINGS: There is S-shaped curvature of the thoracic spine. There is 7 degrees convex right curvature of the midthoracic spine and 16 degrees convex left curvature of the thoracolumbar junction. Vertebral body height and alignment is preserved otherwise. There are endplate osteophytes and mild disc space narrowing in the lower thoracic spine. XR/XR thoracic spine 3V IMPRESSION: Mild scoliosis. 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 Electronically signed by: Magno Neely MD 01/24/2025 01:23 PM EDT
--- OUTSIDE RECORDS SUMMARY | 2025-01-24 13:32 | XMS_ITS | Encounter Summary ---
Author Organization [employer] Address [address] [facility] [address] [place] [address] Care Team Providers Care Aircraft Sheet Metal Mechanic Name Role Phone Name, Saleem READ Primary Care Provider [phone] Reason for Visit * Reason Comments Med Change Request Encounter Details Date Type Department Care Team ([facility] st Contact Info) Description 01/17/2024 Refill [facility] [address] [place], [place] [phone] Name, MD Saleem [address] [place] [address] Chronic midline thoracic back pain Social History Tobacco Use Types Packs/Day Years [...] Care Team (Late st Contact Info) Description 04/15/2025 10:15 AM EDT Office Visit [facility] [address] [place] [phone] Name, MD Saleem [address] [place] [phone] documented as of this encounter Visit Diagnoses Diagnosis Chronic midline thoracic back pain documented in this encounter Additional Health Concerns Assessment Noted Time PHQ-9 Depression Total Score: 0 12/26/19 24 8:54 AM EDT documented as of this encounter Care Teams Aircraft Sheet Metal Mechanic Relationship Specialty Start Date End Date NameSaleem MD [address] [place] [phone] PCP - General Family Medicine 11/23/18 documented as of this encounter
[2025-01-24 14:52] LABS: Anion Gap 9 (12-20); Blood Urea Nitrogen 16 mg/dL (9-16); Calcium 9.8 mg/dL (8.4-10.2); Carbon Dioxide 31 mmol/L (22-29); Chloride 106 mmol/L (96-108); Estimated Glomerular Filt Rate > 60; Glucose Random 82 mg/dL (60-115); Potassium 4.3 mmol/L (3.3-5.1); Sodium 142 mmol/L (135-145)
== END 2025-01-24 11:21 | disposition home or self-care (01) ==
LOC: HO.HHCL 11:20
PROVIDERS: Visit Provider Internal Medicine
DX: Z01.818 Encounter for other preprocedural examination (principal); M54.2 Cervicalgia; M54.9 Dorsalgia, unspecified
CPT/HCPCS: 36415; 72050; 72072; 80048

== ENCOUNTER → 2025-01-24 12:20 | Outpatient (BNV) | payer MEDICARE, MEDICAID, SELFPAY | PROVIDERS: Visit Provider Radiology Diagnostic Radiology | DX: M54.2 Cervicalgia (principal); M54.6 Pain in thoracic spine | CPT/HCPCS: 72050; 72072 ==

== ENCOUNTER 2025-07-22 10:38 | Outpatient (REF) | payer MEDICARE, MEDICAID, SELFPAY ==
--- OUTSIDE RECORDS SUMMARY | 2025-07-22 09:30 | XMS_ITS | Encounter Summary ---
Author Organization [employer] Address [address] [facility] [address], [place] [address] Care Team Providers Care Sales Development Coordinator Name Role Phone Leanna Martinez Primary Care Provider [phone] Reason for Referral * Imaging (Routine) - Authorized Specialty Diagnoses / Procedures Referred By Contac t Referred To Contact Radiology Diagnoses Multiple thyroid nodules Procedures US Thyroid Leanna Martinez FNP [address] [place] [address] Phone: tel: fax: [facility] [address] [place] [id number] Phone: tel: fax: Referral ID Status Reason Start Date Expiration Date V isits Requested Visits Authorized [id number] Authorized 07/22/2025 07/22/2026 1 1 * Consultation (Routine) - Pending Review Specialty Diagnoses / Procedures Referred By Contac t Referred To Contact Physiatry Diagnoses Thoracogenic scoliosis of thoracic region Leanna Martinez FNP [address] [place] [address] Phone: tel: fax: [facility] [address] [facility] [address] [place], [place] Phone: tel: fax: Referral ID Status Reason Start Date Expiration Date Visits Requested Visits Authorized [id number] Pending Review Specialty Services Required 07/22/2025 07/22/2026 1 1 * Consultation (Routine) - Pending Review Specialty Diagnoses / Procedures Referred By Bolivar jackson Referred To Contact General Surgery Diagnoses Hiatal hernia Leanna Martinez FNP [address] [place] [address] Phone: tel: fax: [facility] Referral ID Status Reason Start Date Expiration Date Visits Requested Visits Authorized [id number] Pending Review Specialty Services Required 07/22/2025 07/22/2026 1 1 Reason for Visit * Reason Comments Transfer visit From Dr. Snyder Hypertension Insomnia Encounter Details Date Type Department Care Team ([facility] st Contact Info) Description 07/22/2025 9:30 AM EST Office Visit [facility] MED [facility] PEDS [address] [place] [address] Leanna Martinez FNP [address] [place] [address] Primary hypertension (Primary Dx); Osteoporosis, unspecified osteoporosis type, unspecified pathological fracture presence; Multiple thyroid nodules; Hypothyroidism, unspecified type; Hiatal hernia; Healthcare maintenance; Thoracogenic scoliosis of thoracic region; Insomnia, unspecified type; Gastroesophageal reflux disease, unspecified whether esophagitis present; Glaucoma, unspecified glaucoma type, unspecified laterality Social History Tobacco Use Types Packs/Day Years Used Date Smoking Tobacco: Never Passive Smoke Exposure: Never Smokeless Tobacco: Never Alcohol Use Standard Drinks/Week Comments Never 0 (1 standard drink = 0.6 oz pur e alcohol) Depression Answer Date Recorded Patient Health Questionnaire-9 Score 1 07/22/2025 Patient Health Questionnaire-9 Score 1 07/22/2025 Last PHQ-9: Questionnaire Data Not on file 1 09/22/2024 Housing Stability Answer Date Recorded What is your housing situation today? I have davidson adrian 07/22/[address] you li ve. Do you have problems with any of the following? None of the above 07/22/2025 Food Insecurity Answer Date Recorded Within the past 12 months, y ou worried that your food would run out before you got money to buy more: Never True 07/09/2025 Within the past 12 months,th e food you bought just didn't last and you didn't have enough money to get more: Never True Transportation Answer Date Recorded In the past 12 months, has l ack of transportation kept you from medical appts, meetings, work or from getting things needed for daily living? No 07/09/2025 Utilities Answer Date Recorded In the past 12 months, has t he electric, gas, oil or water company threatened to shut off services in your home? No 07/09/2025 Depression Answer Date Recorded Patient Health Questionnaire-2 Score 0 07/22/2025 Internet Access Answer Date Recorded Internet Access Q1 Yes 07/09/2025 Internet Access Q2 Not on file 07/09/2025 Comments Unknown Sex and Gender Information Value Date Recorded Sex Assigned at Female 06/21/2022 10:35 AM EDT Legal Sex Female 10:35 AM EDT Gender Identity Female 06/21/2022 10:35 AM EDT Sexual Orientation Straight 06/21/2022 10 :35 AM EDT documented as of this encounter Last Filed Vital Signs Vital Sign Reading Time Taken Comments Blood Pressure 160/88 07/22/2025 9:46 AM EST manually checked. Auto 164/78 Pulse 71 07/22/2025 9:46 AM EST Temperature 36.4 C (97.5 F) 07/22/2025 9:46 AM EST Respiratory Rate 16 07/22/2025 9:46 AM EST Oxygen Saturation - - Inhaled Oxygen Concentration - - Weight 66.2 kg (146 lb) 07/22/2025 9:46 AM EST Height 160 cm (5' 3 ) 07/22/2025 9:46 AM EST Body Mass Index 25.86 07/22/2025 9:46 AM EST documented in this encounter Functional Status * Over the past 2 weeks, how often have you been bothered by any of the following problems? Question Answer Date of Assessment Author Patient Health Questionnaire -2 Score 0 07/22/2025 9:51 AM Kaylie Nieto MA * Little interest or pleasure in doing things Answer Date of Assessment Author Not at all 07/22/2025 9:51 AM Katie Nieto MA * Feeling down, depressed, or hopeless Answer Date of Assessment Author Not at all 07/22/2025 9:51 AM Katie Nieto MA * Trouble falling or staying asleep, or sleeping too much Answer Date of Assessment Author Several days 07/22/2025 9:51 AM Katie Nieto MA * Feeling tired or having little energy Answer Date of Assessment Author Not at all 07/22/2025 9:51 AM Katie Nieto MA * Poor appetite or overeating Answer Date of Assessment Author Not at all 07/22/2025 9:51 AM Katie Nieto MA * Feeling bad about yourself - or that you are a failure or have let yourself or your family down Answer Date of Assessment Author Not at all 07/22/2025 9:51 AM Katie Nieto MA * Trouble concentrating on things, such as reading the newspaper or watching television Answer Date of Assessment Author Not at all 07/22/2025 9:51 AM Katie Nieto MA * Moving or speaking so slowly that other people could have noticed? Or the opposite - being so fidgety or restless that you have been moving around a lot more than usual. Answer Date of Assessment Author Not at all 07/22/2025 9:51 AM Katie Nieto MA * Thoughts that you would be better off or hurting yourself in some way Answer Date of Assessment Author Not at all 07/22/2025 9:51 AM Katie Nieto MA * Patient Health Questionnaire-9 Score Answer Date of Assessment Author 1 07/22/2025 9:51 AM Katie Nieto MA * How difficult have these problems made it for you to do your work, take care of things at home, or get along with other people? Answer Date of Assessment Author Not difficult at all 07/22/2025 9:51 AM Kaylie Vargas MA documented as of this encounter Progress Notes * ERIKA Lindsey - 07/22/2025 9:30 AM EST Subjective: Ada W Eula Monroe is a 74 y.o. female who presents to the office for a transfer patient visit. Previous PCP Dr. Snyder. HPI: Hypertension: currently prescribed amlodipine and irbesartan daily. Reports difficulty remembering AM dose d/t timing with thyroid medication, sometimes skips dose by accident. In need of new home BPmonitor. Plan to switch to administer meds in evening for improved adherence. Thyroid nodules: history of thyroid nodules, last US completed > 10 years ago in [place]. Also continues with levothyroxine for history hypothyroid. Reports chronic throat discomfort for about one year, frequent cough and hoarseness, unable to raise voice or sing, sensation of something in throat, frequent need to clear throat; difficulty swallowing dry foods. Denies weight loss, fever, or night chills. She does have a history of GERD and hiatal hernia. Reports has tried all of the different PPIs and did not notice improvement. Currently using famotidine 20mg daily with some relief. 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 History of osteoporosis, unable to tolerate weekly alendronate due to side effects. Chronic back pain, worsened by household activities such as laundry and dishwashing, temporary relief with physical therapy, pain returned after resuming activities; topical creams provide minimal relief. History of scoliosis, mild arthritis, pelvic asymmetry. Problem List[1] Social History Living situation: lives with and son Substance use: none reported Mental health: no concerns. Denies SI/HI/thoughts of self harm Allergies[2] Review of Systems Constitutional: Negative for chills and fever. HENT: Negative for congestion. Throat discomfort Respiratory: Negative for cough, shortness of breath and wheezing. Cardiovascular: Negative for chest pain and palpitations. Gastrointestinal: Negative for diarrhea, nausea and vomiting. Acid reflux Musculoskeletal: Positive for back pain. Psychiatric/Behavioral: Positive for sleep disturbance. Negative for suicidal ideas. Visit Vitals BP (!) 160/88 (BP Location: Left arm, Patient Position: Sitting, BP Cuff Size: Adult) Comment: manually checked. Auto 164/78 Pulse 71 Temp 97.5 ??F (36.4 ??C) (Temporal) Resp 16 Ht 5' 3 (1.6 m) Wt 146 lb (66.2 kg) BMI 25.86 kg/m?? Smoking Status Never BSA 1.72 m?? Physical Exam Constitutional: Appearance: Normal appearance. HENT: Head: Atraumatic. Right Ear: External ear normal. Left Ear: External ear normal. Cardiovascular: Rate and Rhythm: Normal rate and regular rhythm. Pulmonary: Effort: Pulmonary effort is normal. Breath sounds: Normal breath sounds. Neurological: Mental Status: She is alert and oriented to person, place, and time. Psychiatric: Mood and Affect: Mood normal. Behavior: Behavior normal. Problem List Items Addressed This Visit Cardiac and Vasculature HTN (hypertension) - Primary Current Assessment & Plan - Elevated in office, reports she has not yet taken her medications today - Recommended taking both antihypertensive medications in the evening to improve adherence. Prescribed a new home blood pressure monitor for more reliable readings. - Continue amlodipine 5mg daily - Continue irbesartan 150mg nightly Relevant Medications Blood Pressure kit Endocrine and Metabolic Hypothyroidism Current Assessment & Plan - Continues with levothyroxine 88mcg daily Lab Results Component Value Date TSH 3.06 09/22/2023 Osteoporosis Current Assessment & Plan - She is on calcium with vitamin D. She does not tolerate Fosamax Multiple thyroid nodules Current Assessment & Plan - Multiple thyroid nodules with no recent imaging follow-up. - Ordered thyroid ultrasound to evaluate for persistence or changes in thyroid nodules. Will reviewresults at follow-up. Relevant Orders US Thyroid Eye Glaucoma Relevant Medications latanoprost (Xalatan) 0.005 % ophthalmic solution Gastrointestinal and Abdominal Acid reflux Overview And hiatal hernia and has seen GI in the past at several different practices ([facility], [place] and [facility]). EGD was negative for malignancy/Antonio's back in 2019 at [facility]. In 2022 Dr Fleming for GI at [facility] thatdid a Barium swallow and 24 ph monitoring and recommended a referral to surgery Relevant Medications famotidine (Pepcid) 20 MG tablet Hiatal hernia Current Assessment & Plan - Hiatal hernia with persistent gastroesophageal reflux symptoms and chronic epigastric pain, refractory to multiple proton pump inhibitors. Surgical intervention previously recommended by gastroenterology but not yet performed. - Will refer to general surgery for evaluation and possible surgical management. Relevant Medications Other Relevant Orders Referral to General Surgery Health Encounters Healthcare maintenance Current Assessment & Plan - Declined outstanding vaccines - In agreement with routine lab work today - Plan to follow up in 2-3 weeks to review labs and continue discussion of chronic care Relevant Orders Albumin, Random Urine W/Creatinine Lipid Panel, Standard Hemoglobin A1c TSH with Reflex to Free T4 Comprehensive Metabolic Panel CBC auto differential Hepatitis C Viral RNA, Quantitative, Real-Time PCR RPR (Monitor) with Reflex to Titer HIV-1/2 Antigen and Antibodies, Fourth Generation, with Reflexes Neuro Scoliosis Overview XR thoracic spine January 2025: Mild scoliosis. 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 Cervical spine Xray wnl Current Assessment & Plan - Previous interventions include physical therapy, topical and PO analgesics - Noted spinal curvature and leg length discrepancy. - No red flag symptoms - Referral to Physiatry for further evaluation and treatment Relevant Orders Referral to Physiatry Sleep Insomnia Current Assessment & Plan - Difficulty initiating sleep, prefers non-pharmacologic interventions. - Recommended magnesium 400 mg at bedtime. Reviewed med safety and SE Relevant Medications Magnesium 400 MG capsule Follow up: 2-3 weeks, sooner as needed Current Medications[3] Immunization History Administered Date(s) Administered Moderna Covid-19 Vaccine 10/09/2020, 11/06/2020 This note was drafted using Ambient (AI) technology. The patient/patient's guardian has been informed and has consented to the use of this technology: Yes [1] Patient Active Problem List Diagnosis HTN (hypertension) Acid reflux Glaucoma H/O: hysterectomy Hiatal hernia History of tonsillectomy Hypothyroidism Menopausal state Migraine Osteoporosis Seasonal allergic reaction Calcaneal spur of right foot Strain of flexor muscle of left hip Upper back pain Multiple thyroid nodules Trigger finger, left ring finger Scoliosis Insomnia Healthcare maintenance [2] Allergies Allergen Reactions Diphenhydramine Fosamax [Alendronate] Heartburn Nubain [Nalbuphine] [3] Current Outpatient Medications Medication Sig Dispense Refill latanoprost (Xalatan) 0.005 % ophthalmic solution PONGA TED GOTA EN LOS DOS OJOS TODOS LOS D AL ACOSTARSE amLODIPine (Norvasc) 5 MG tablet TOME 1 TABLETA POR VIA ORAL TODOS LOS PRIDE 90 tablet 0 baclofen (Lioresal) 10 MG tablet Take 1 tablet (10 mg) by mouth 2 times daily. 60 tablet 0 Blood Pressure kit Use to check blood pressure once daily and when symptomatic. 1 kit 0 Diclofenac Sodium (Voltaren) 1 % gel Apply twice a day to affected area 100 g 2 famotidine (Pepcid) 20 MG tablet Take 1 tablet (20 mg) by mouth 2 times daily. 180 tablet 0 irbesartan (Avapro) 150 MG tablet TAKE 1 TABLET BY MOUTH AT BEDTIME 90 tablet 3 levothyroxine (Synthroid, Levoxyl) 88 MCG tablet TAKE 1 TABLET BY MOUTH EVERY MORNING 30 MINUTES BEFORE BREAKFAST 90 tablet 1 Magnesium 400 MG capsule Take 400 mg by mouth at bedtime. 90 capsule 1 pantoprazole (ProtoNix) 40 MG EC tablet TAKE 1 TABLET BY MOUTH EVERY DAY 90 tablet 1 No current facility-administered medications for this visit. documented in this encounter Miscellaneous Notes * Assessment & Plan Note - ERIKA Lindsey - 07/22/2025 1:10 PM ESTAssociated Problem(s): Healthcare maintenance - Declined outstanding vaccines - In agreement with routine lab work today - Plan to follow up in 2-3 weeks to review labs and continue discussion of chronic care * Assessment & Plan Note - ERIKA Lindsey - 07/22/2025 1:08 PM ESTAssociated Problem(s): Hiatal hernia - Hiatal hernia with persistent gastroesophageal reflux symptoms and chronic epigastric pain, refractory to multiple proton pump inhibitors. Surgical intervention previously recommended by gastroenterology but not yet performed. - Will refer to general surgery for evaluation and possible surgical management. * Assessment & Plan Note - ERIKA Lindsey - 07/22/2025 1:07 PM ESTAssociated Problem(s): Insomnia - Difficulty initiating sleep, prefers non-pharmacologic interventions. - Recommended magnesium 400 mg at bedtime. Reviewed med safety and SE * Assessment & Plan Note - ERIKA Lindsey - 07/22/2025 1:05 PM ESTAssociated Problem(s): Scoliosis - Previous interventions include physical therapy, topical and PO analgesics - Noted spinal curvature and leg length discrepancy. - No red flag symptoms - Referral to Physiatry for further evaluation and treatment * Assessment & Plan Note - ERIKA Lindsey - 07/22/2025 9:56 AM ESTAssociated Problem(s): Multiple thyroid nodules - Multiple thyroid nodules with no recent imaging follow-up. - Ordered thyroid ultrasound to evaluate for persistence or changes in thyroid nodules. Will reviewresults at follow-up. * Assessment & Plan Note - ERIKA Lindsey - 07/22/2025 6:36 AM ESTAssociated Problem(s): Hypothyroidism - Continues with levothyroxine 88mcg daily Lab Results Component Value Date TSH 3.06 09/22/2023 * Assessment & Plan Note - ERIKA Lindsey - 07/22/2025 6:35 AM ESTAssociated Problem(s): Osteoporosis - She is on calcium with vitamin D. She does not tolerate Fosamax * Assessment & Plan Note - ERIKA Lindsey - 07/22/2025 6:34 AM ESTAssociated Problem(s): HTN (hypertension) - Elevated in office, reports she has not yet taken her medications today - Recommended taking both antihypertensive medications in the evening to improve adherence. Prescribed a new home blood pressure monitor for more reliable readings. - Continue amlodipine 5mg daily - Continue irbesartan 150mg nightly documented in this encounter Plan of Treatment Upcoming Encounters Date Type Department Care Team (Late st Contact Info) Description 08/09/2025 8:45 AM EST Office Visit [facility] [address] [place] [address] Leanna Martinez FNP [address] [place] [address] Scheduled Orders Name Type Priority Associated Diagnoses Orde r Schedule Albumin, Random Urine W/Creatinine Lab Routine Healthcare maintenance Expected: 07/22/2025 (Approximate), Expires: 07/22/2026 Lipid Panel, Standard Lab Routine Healthcare maintenance Expected: 07/22/2025 (Approximate), Expires: 07/22/2026 Hemoglobin A1c Lab Routine Healthcare maintenance Expected: 07/22/2025 (Approximate), Expires: 07/22/2026 TSH with Reflex to Free T4 Lab Routine Healthcare maintenance Expected: 07/22/2025 (Approximate), Expires: 07/22/2026 Comprehensive Metabolic Panel Lab Routine Healthcare maintenance Expected: 07/22/2025 (Approximate), Expires: 07/22/2026 CBC auto differential Lab Routine Healthcare maintenance Expected: 07/22/2025, Expires: 07/22/2026 Hepatitis C Viral RNA, Quantitative, Real-Time PCR Lab Routine Healthcare maintenance Expected: 07/22/2025 (Approximate), Expires: 07/22/2026 RPR (Monitor) with Reflex to Titer Lab Routine Healthcare maintenance Expected: 07/22/2025 (Approximate), Expires: 07/22/2026 HIV-1/2 Antigen and Antibodies, Fourth Generation, with Reflexes Lab Routine Healthcare maintenance Expected: 07/22/2025 (Approximate), Expires: 07/22/2026 US Thyroid Imaging Routine Multiple thyroid nodules Expected: 07/22/2025, Expires: 07/22/2026 Scheduled Referrals Name Type Priority Associated Diagnoses Orde r Schedule Referral to General Surgery Outpatient Referral Routine Hiatal hernia Expected: 07/22/2025 (Approximate), Expires: 07/22/2026 Referral to Physiatry Outpatient Referral Routine Thoracogenic scoliosis of thoracic region Expected: 07/22/2025 (Approximate), Expires: 07/22/2026 documented as of this encounter Visit Diagnoses Diagnosis Primary hypertension- Primary Unspecified essential hypertension Osteoporosis, unspecified osteoporosis type, unspecified pathological fracture presence Multiple thyroid nodules Nontoxic multinodular goiter Hypothyroidism, unspecified type Hiatal hernia Diaphragmatic hernia without mention of obstruction or gangrene Healthcare maintenance Thoracogenic scoliosis of thoracic region Insomnia, unspecified type Gastroesophageal reflux disease, unspecified whether esophagitis present Glaucoma, unspecified glaucoma type, unspecified laterality documented in this encounter Additional Health Concerns Assessment Noted Time PHQ-9 Depression Total Score: 1 07/22/20 25 9:51 AM EST documented as of this encounter Care Teams Sales Development Coordinator Relationship Specialty Start Date End Date Leanna Martinez FNP [address] [place] [id number] PCP - General Family Medicine 07/05/25 documented as of this encounter
--- OUTSIDE RECORDS SUMMARY | 2025-07-22 13:30 | XMS_ITS | Encounter Summary ---
Author Organization [employer] Address [address] [facility] 7 [place] [address] Care Team Providers Care Machine Bookkeeper Name Role Phone Name, Saleem READ Primary Care Provider Leanna Martinez Primary Care Provider [phone] Reason for Visit * Reason Onset Date Comments Reschedule 08/11/2023 Encounter Details Date Type Department Care Team (Late st Contact Info) Description 08/11/2023 Telephone [facility] MEDICINE [address] [place], [place] [phone] Name, MD Saleem [address] [place], [place] [id number] Reschedule Social History Tobacco Use Types Packs/Day [...] Description 08/09/2025 8:45 AM EST Office Visit [facility] PEDS [address] [place] [address] Leanna Martinez FNP [address] [place] [address] documented as of this encounter Visit Diagnoses Not on filedocumented in this encounter Additional Health Concerns Assessment Noted Time PHQ-9 Depression Total Score: 0 12/18/19 23 11:15 AM EDT documented as of this encounter Care Teams Machine Bookkeeper Relationship Specialty Start Date End Date Name, MD Saleem [address] [place] [address] PCP - General Family Medicine 11/23/18 07/04/25 Leanna Martinez FNP [address] [place] [address] PCP - General Family Medicine 07/05/25 documented as of this encounter
--- OUTSIDE RECORDS SUMMARY | 2025-07-22 13:30 | XMS_ITS | Encounter Summary ---
Author Organization [employer] Address [address] [facility] 7[address] [place] [address] Care Team Providers Care Chemical Processing Supervisor Name Role Phone Leanna Martinez ERIKA Primary Care Provider [phone] Encounter Details Date Type Department Care Team (Latest Contact Info) Description 07/22/2025 Travel Social History Tobacco Use Types Packs/Day Years [...] AM EDT documented as of this encounter Functional Status * Over the [...] Vargas MA documented as of this encounter Plan of Treatment Upcoming Encounters Date Type Department Care Team (Late st Contact Info) Description 08/09/2025 8:45 AM EST Office Visit [facility] MED & PEDS [address] [place] [address] Leanna Martinez FNP [address] [place] [address] documented as of this encounter Visit Diagnoses Not on filedocumented in this encounter Additional Health Concerns Assessment Noted Time PHQ-9 Depression Total Score: 1 07/22/20 9:51 AM EST documented as of this encounter Care Teams Chemical Processing Supervisor Relationship Specialty Start Date End Date Leanna Martinez FNP [address] [place] [address] PCP - General Family Medicine 07/05/25 documented as of this encounter
--- OUTSIDE RECORDS SUMMARY | 2025-07-22 13:30 | XMS_ITS | Encounter Summary ---
Author Organization [employer] Address [address] [place] [address] 7 [place] [address] Care Team Providers Care Plastic Sewer Name Role Phone Claudio, Saleem READ Primary Care Provider [phone] Leanna Martinez Primary Care Provider [phone] Reason for Visit * Reason Comments Med Change Request Encounter Details Date Type Department Care Team ([facility] st Contact Info) Description 01/17/2024 Refill [facility] MEDICINE [address] [place], [place] [phone] Name, MD Saleem [address] [place], [place] [phone] Chronic midline thoracic back pain Social History [...] is your housing situation today? I have davidsongera adrian 12/26/[address] you [...] Upcoming Encounters Date Type Department Care Team ([facility] st Contact Info) Description 08/09/2025 8:45 AM EST Office Visit [facility] MED & PEDS [address] [place] [address] Leanna Martinez FNP [address] [place] [address] documented as of this encounter Visit Diagnoses Diagnosis Chronic midline thoracic back pain documented in this encounter Additional Health Concerns Assessment Noted Time PHQ-9 Depression Total Score: 0 12/26/19 24 8:54 AM EDT documented as of this encounter Care Teams Plastic Sewer Relationship Specialty Start Date End Date Name, MD Saleem [address] [place] [address] PCP - General Family Medicine 11/23/18 07/04/25 Leanna Martinez FNP [address] [place] [address] PCP - General Family Medicine 07/05/25 documented as of this encounter
--- OUTSIDE RECORDS SUMMARY | 2025-07-22 13:31 | XMS_ITS | Encounter Summary ---
Author Organization [employer] Address [address] [place] [address] 7 [place] [address] Care Team Providers Care Biomedical Electronics Technician Name Role Phone Name, Saleem READ Primary Care Provider [phone] Leanna Martinez Primary Care Provider [phone] Reason for Visit * Reason Comments Med Refill Encounter Details Date Type Department Care Team ([facility] st Contact Info) Description 01/29/2025 Refill [facility] MEDICINE [address] [place], [place] [phone] Name, MD Saleem [address] [place] [address] Social History Tobacco Use Types Packs/Day Years [...] Upcoming Encounters Date Type Department Care Team ([facility] st Contact Info) Description 08/09/2025 8:45 AM EST Office Visit [facility] MED & PEDS [address] [place] [address] Leanna Martinez FNP [address] [place] [address] documented as of this encounter Visit Diagnoses Not on filedocumented in this encounter Additional Health Concerns Assessment Noted Time PHQ-9 Depression Total Score: 0 12/26/19 24 8:54 AM EDT documented as of this encounter Care Teams Biomedical Electronics Technician Relationship Specialty Start Date End Date Name, MD Saleem [address] [place] [address] PCP - General Family Medicine 11/23/18 07/04/25 Leanna Martinez FNP [address] [place] [address] PCP - General Family Medicine 07/05/25 documented as of this encounter
--- OUTSIDE RECORDS SUMMARY | 2025-07-22 13:31 | XMS_ITS | Encounter Summary ---
Author Organization [employer] Address [address] [place] [address] 7 [place] [address] Care Team Providers Care Steamer Operator Name Role Phone Name, Saleem READ Primary Care Provider [phone] Leanna Martinez Primary Care Provider [phone] Reason for Visit * Reason Onset Date Comments Transfer Pt 11/09/2024 Encounter Details Date Type Department Care Team (Late st Contact Info) Description 11/09/2024 Telephone [facility] [address] [place], [place] [phone] Name, MD Saleem [address] [place], [place] [phone] Transfer Pt Social History Tobacco Use Types Packs/Day Years [...] encounter Miscellaneous Notes * Telephone Encounter - Tiara Page - 11/15/2024 2:10 PM EDT Tc from pt requesting status in regards transfer patient due to having surgery and needs to be seenby provider. Please return call [phone] * Telephone Encounter - Mega Olivares - 11/13/2024 11:57 AM EDT Tc from pt requesting status of Prior message. Pt states wants to get over there as soon as possible. Pt is trying to Switch to Dr martinez. Contact pt at [phone] * Telephone Encounter - Tiara Page - 11/09/2024 11:25 AM EDT Tc from pt requesting to transfer to [facility] due to pt gets treated and due to transportation is closer to her. Please Contact [phone] documented in this encounter Plan of Treatment Upcoming Encounters Date Type Department Care Team (Late st Contact Info) Description 08/09/2025 8:45 AM EST Office Visit [facility] MED & PEDS [address] [place] [address] Leanna Martinez FNP [address] [place] [address] documented as of this encounter Visit Diagnoses Not on filedocumented in this encounter Additional Health Concerns Assessment Noted Time PHQ-9 Depression Total Score: 0 12/26/19 24 8:54 AM EDT documented as of this encounter Care Teams Steamer Operator Relationship Specialty Start Date End Date Name, MD Saleem [address] [place] [address] PCP - General Family Medicine 11/23/18 07/04/25 Leanna Martinez FNP [address] [place] [address] PCP - General Family Medicine 07/05/25 documented as of this encounter
--- OUTSIDE RECORDS SUMMARY | 2025-07-22 13:31 | XMS_ITS | Encounter Summary ---
Author Organization [facility] Address [address] [place] [address] Care Team Providers Care Mounter Hand Name Role Phone Name, Saleem READ Primary Care Provider [phone] Leanna Martinez Primary Care Provider Encounter Details Date Type Department Care Team (Late st Contact Info) Description 11/01/2022 Orders Only [facility] MED & PEDS [address] [place] [address] Rosangela Hensley LPN Social History Tobacco Use [...] Description 08/09/2025 8:45 AM EST Office Visit [facility] MED & PEDS [address] [place] [address] Leanna Martinez FNP [address] [place], [place] [phone] documented as of this encounter Visit Diagnoses Not on filedocumented in this encounter Care Teams Mounter Hand Relationship Specialty Start Date End Date Name, MD Saleem [address] [place] [address] PCP - General Family Medicine 11/23/18 07/04/25 Leanna Martinez FNP [address] [place] [address] PCP - General Family Medicine 07/05/25 documented as of this encounter
--- OUTSIDE RECORDS SUMMARY | 2025-07-22 13:31 | XMS_ITS ---
Author Name [facility] Organization Unknown Encounters Encounter Type Encounter Reason Primary Diagnosis Location Date Ambulatory MODIFY 1 Other hammer t oe(s) (acquired) right foot [facility] 02/08/2025 Care Team Organization Name Specialty Phone Email Start Date End Da te [facility] 12/06/2024
--- OUTSIDE RECORDS SUMMARY | 2025-07-22 13:31 | XMS_ITS | Encounter Summary ---
Author Organization [employer] Address [address] [place] [address] 7 [place] [address] Care Team Providers Care Acid Bleacher Name Role Phone Name, Saleem READ Primary Care Provider [phone] Leanna Martinez Primary Care Provider [phone] Encounter Details Date Type Department Care Team (Late Contact Info) Description 01/03/2023 Abstract [facility] MEDICINE [address] [place], [place] [phone] Name, MD Saleem [address] [place] [address] Social History Tobacco Use Types Packs/Day Years [...] Encounters Date Type Department Care Team (Late Contact Info) Description 08/09/2025 8:45 AM EST Office Visit [facility] CH[facility] MED & PEDS [address] [place] [address] Leanna Martinez FNP [address] [place] [address] documented as of this encounter Procedures Procedure Name Priority Date/Time Associated Diagnosis Comments COLONOSCOPY Routine 10/13/2018 documented in this encounter Results * Colonoscopy (10/13/2018) Colonoscopy Normal Normal 10/13/2018 Narrative Jesika Leon - 10/13/2018 10:42 AM EST Recommended 10 year follow up us Historical Provider HEALTH MAINTENANCE Final Result documented in this encounter Visit Diagnoses Not on filedocumented in this encounter Additional Health Concerns Assessment Noted Time PHQ-9 Depression Total Score: 0 12/18/19 23 11:15 AM EDT documented as of this encounter Care Teams Acid Bleacher Relationship Specialty Start Date End Date Name, MD Saleem [address] [place] [address] PCP - General Family Medicine 11/23/18 07/04/25 Leanna Martinez FNP [address] [place] [address] PCP - General Family Medicine 07/05/25 documented as of this encounter
--- OUTSIDE RECORDS SUMMARY | 2025-07-22 13:31 | XMS_ITS | Encounter Summary ---
Author Organization [employer] Address [address] [place] [address] Care Team Providers Care Azure Architect Name Role Phone Name, Saleem READ Primary Care Provider [phone] Leanna Martinez Primary Care Provider [phone] Encounter Details Date Type Department Care Team (Late st Contact Info) Description 08/10/2022 Orders Only [facility] [address] [place] [address] Snow Sims LPN Social History Tobacco Use [...] Description 08/09/2025 8:45 AM EST Office Visit [facility] CHC MED & PEDS [address] [place], [place] [phone] Leanna Martinez FNP [address] [place], [place] [phone] documented as of this encounter Procedures Procedure Name Priority Date/Time Associated Diagnosis Comments VITAMIN D,25-OH,TOTAL,IA Routine 09/28/2022 8:29 AM EST documented in this encounter Results * Vitamin D, 25-Hydroxy, Total, Immunoassay (09/28/2022 8:29 AM EST) Vitamin D 25-OH Total 14.5 >30 ng/mL [facility] Comment:Health Based Referen ce Values*< 20 ng/mL [id number] ng/mL Insufficient> 30 ng/mL Sufficient*Ryley VERAS. N [...] 8:29 AM EST 09/28/2022 10:41 AM EST [facility] External Provider LAB BLO OD ORDERABLES Final Result [facility] [address] [place] [address] [phone] documented in this encounter Visit Diagnoses Not on filedocumented in this encounter Care Teams Azure Architect Relationship Specialty Start Date End Date Name, MD Saleem [address] [place] [address] PCP - General Family Medicine 11/23/18 07/04/25 Leanna Martinez FNP [address] [place] [address] PCP - General Family Medicine 07/05/25 documented as of this encounter
--- OUTSIDE RECORDS SUMMARY | 2025-07-22 13:31 | XMS_ITS | Encounter Summary ---
Author Organization [employer] Address [address] [place] [address] 7 [place] [address] Care Team Providers Care Group Insurance Specialist Name Role Phone Name, Saleem READ Primary Care Provider [phone] Leanna Martinez Primary Care Provider [phone] Reason for Visit * Reason Onset Date Comments Appointment Request 12/25/2024 Encounter Details Date Type Department Care Team ([facility] st Contact Info) Description 12/25/2024 Telephone [facility] MEDICINE [address] [place], [place] [phone] Name, MD Saleem [address] [place], [place] [phone] Appointment Request Social History Tobacco Use Types Packs/Day Years [...] * Telephone Encounter - Tiara Page - 12/25/2024 1:10 PM EDT Tc from [facility] with [facility] requesting appointment for March please contact pt with appointment time and date. Appointment type : Physical Notes : Requested per insurance Provider - Saleem Name documented in this encounter Plan of Treatment Upcoming Encounters Date Type Department Care Team ([facility] st Contact Info) Description 08/09/2025 8:45 AM EST Office Visit [facility] MED & PEDS [address] [place] [address] Leanna Martinez FNP [address] [place] [address] documented as of this encounter Visit Diagnoses Not on filedocumented in this encounter Additional Health Concerns Assessment Noted Time PHQ-9 Depression Total Score: 0 12/26/19 24 8:54 AM EDT documented as of this encounter Care Teams Group Insurance Specialist Relationship Specialty Start Date End Date Name, MD Saleem [address] [place] [address] PCP - General Family Medicine 11/23/18 07/04/25 Leanna Martinez FNP [address] [place] [address] PCP - General Family Medicine 07/05/25 documented as of this encounter
--- OUTSIDE RECORDS SUMMARY | 2025-07-22 13:31 | XMS_ITS | Encounter Summary ---
Author Organization [employer] Address [address] [place] [address] Care Team Providers Care Internet Marketing Consultant Name Role Phone Leanna Martinez Primary Care Provider [phone] Reason for Visit * Reason Onset Date Comments chart prep 07/17/2025 Encounter Details Date Type Department Care Team ([facility] Contact Info) Description 07/17/2025 Telephone [facility] MED & PEDS [address] [place] [address] Leanna Martinez FNP [address] [place] [address] chart prep Social History Tobacco Use Types Packs/Day Years [...] What is your housing situation today? I do not have housing (Staying with others, in a hotel, in a snf, living outside on the street, on a beach, in a car, or in a park 07/09/[address] you li ve. Do you have problems with any of the following? None of the above 07/09/2025 Food Insecurity Answer Date Recorded Within the [...] Recorded Patient Health Questionnaire-2 Score 0 12/26/2023 Internet Access Answer Date Recorded Internet Access [...] encounter Miscellaneous Notes * Telephone Encounter - Dorys Friedman MA - 07/17/2025 10:59 AM EST Chart Prep Labs: done Images: done Referrals: appointment pending Vaccines due: Covid, Flu, PCV20, Tdap, RSV, and Zoster Screenings: not applicable Overdue care gaps: SBIRT and PHQ-9 documented in this encounter Plan of Treatment Upcoming Encounters Date Type Department Care Team ([facility] st Contact Info) Description 08/09/2025 8:45 AM EST Office Visit [facility] MED & PEDS [address] [place] [address] Leanna Martinez FNP [address] [place] [address] documented as of this encounter Visit Diagnoses Not on filedocumented in this encounter Additional Health Concerns Assessment Noted Time PHQ-9 Depression Total Score: 0 12/26/19 24 8:54 AM EDT documented as of this encounter Care Teams Internet Marketing Consultant Relationship Specialty Start Date End Date Leanna Martinez FNP [address] [place] [address] PCP - General Family Medicine 07/05/25 documented as of this encounter
--- OUTSIDE RECORDS SUMMARY | 2025-07-22 13:31 | XMS_ITS | Clinical Summary ---
Author Organization [employer] Address [address] [place] [address] 7 [place] [address] Care Team Providers Care Community Theater Actor Name Role Phone SergeyLeanna sierra ERIKA Primary Care Provider Allergies Active Allergy Reactions Criticality Noted Date Comments Diphenhydramine 11/29/2022 Alendronate 09/22/2023 Heartburn Nalbuphine 11/29/2022 Medications baclofen (Lioresal) 10 MG tabletIndicatio ns:Chronic midline thoracic back pain Take 1 tablet (10 mg) by mouth 2 times daily. 60 tablet 12/26/19 24 Active Diclofenac Sodium (Voltaren) 1 % gelIndications: Bilateral foot pain Apply twice a day to affected area 100 g 2 06/28/20 24 Active pantoprazole (ProtoNix) 40 MG EC tablet TAKE 1 TABLET BY MOUTH EVERY DAY 90 tablet 1 08/23/19 25 Active irbesartan (Avapro) 150 MG tablet TAKE 1 TABLET BY MOUTH AT BEDTIME 90 tablet 3 11/01/19 25 Active amLODIPine (Norvasc) 5 MG tabletIndicatio ns:Hypertension , unspecified type TOME 1 TABLETA POR VIA ORAL TODOS LOS PRIDE 90 tablet 05/03/20 25 Active levothyroxine (Synthroid, Levoxyl) 88 MCG tabletIndicatio ns:Hypothyroidi sm, unspecified type TAKE 1 TABLET BY MOUTH EVERY MORNING 30 MINUTES BEFORE BREAKFAST 90 tablet 1 05/29/20 25 Active latanoprost (Xalatan) 0.005 % ophthalmic solutionIndicat ions:Glaucoma, unspecified glaucoma type, unspecified laterality PONGA TED GOTA EN LOS DOS OJOS TODOS LOS D AL ACOSTARSE 03/04/20 25 Active Blood Pressure kitIndications: Primary hypertension Use to check blood pressure once daily and when symptomatic. 1 kit 07/22/20 25 Active Magnesium 400 MG capsuleIndicati ons:Insomnia, unspecified type Take 400 mg by mouth at bedtime. 90 capsule 1 07/22/20 25 Active famotidine (Pepcid) 20 MG tabletIndicatio ns:Primary hypertension Take 1 tablet (20 mg) by mouth 2 times daily. 180 tablet 07/22/20 25 Active famotidine (Pepcid) 20 MG tablet TAKE 1 TABLET (20 MG) BY MOUTH ONCE PER DAY. 90 tablet 04/30/20 25 025 Discontinued(Re order (will not trigger notification to Pharmacy)) Active Problems Problem Noted Date Diagnosed Date Trigger finger, left ring finger 07/22/2025 Scoliosis 07/22/2025 Overview (07/22/2025): XR thoracic spine January 2025: Mild scoliosis. 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 Cervical spine Xray wnl Assessment & Plan (07/22/2025 1:05 PM EST): - Previous interventions include physical therapy, topical and PO analgesics - Noted spinal curvature and leg length discrepancy. - No red flag symptoms - Referral to Physiatry for further evaluation and treatment Insomnia 07/22/2025 Assessment & Plan (07/22/2025 1:07 PM EST): - Difficulty initiating sleep, prefers non-pharmacologic interventions. - Recommended magnesium 400 mg at bedtime. Reviewed med safety and SE Healthcare maintenance 07/22/2025 Assessment & Plan (07/22/2025 1:10 PM EST): - Declined outstanding vaccines - In agreement with routine lab work today - Plan to follow up in 2-3 weeks to review labs and continue discussion of chronic care Upper back pain 01/24/2025 Assessment & Plan (01/24/2025 3:44 PM EDT): As above Calcaneal spur of right foot 06/28/2024 Strain of flexor muscle of left hip 06/28/2024 Acid reflux 12/17/2022 Overview (06/28/2024): And hiatal hernia and has seen GI in the past at several different practices ([facility], [place] and [facility]). EGD was negative for malignancy/Antonio's back in 2018 at [facility]. In 2022 Dr Fleming for GI at [facility] that did a Barium swallow and 24 ph monitoring and recommended a referral to surgery Seasonal allergic reaction 01/29/2019 Glaucoma 11/23/2018 H/O: hysterectomy 11/23/2018 Hiatal hernia 11/23/2018 Overview (12/17/2022): Dr Carias recently seen her She had EGD and colonoscopy in [place]. She says had 1 polyp removed ( 2012). Per Dr Carias to repeat Colonosc in 2018 (pt feels was due in 2015. She has some records but fif not bring. Says last EGD had ulcers. She had H.pilory, treated. Was taking Zantac, now on Nexium per Aretha. Has not started yet. Assessment & Plan (07/22/2025 1:08 PM EST): - Hiatal hernia with persistent gastroesophageal reflux symptoms and chronic epigastric pain, refractory to multiple proton pump inhibitors. Surgical intervention previously recommended by gastroenterology but not yet performed. - Will refer to general surgery for evaluation and possible surgical management. History of tonsillectomy 11/23/2018 Hypothyroidism 11/23/2018 Assessment & Plan (07/22/2025 6:36 AM EST): - Continues with levothyroxine 88mcg daily Lab Results Component Value Date TSH 3.06 09/22/2023 Migraine 11/23/2018 HTN (hypertension) 04/11/2015 Assessment & Plan (07/22/2025 1:09 PM EST): - Elevated in office, reports she has not yet taken her medications today - Recommended taking both antihypertensive medications in the evening to improve adherence. Prescribed a new home blood pressure monitor for more reliable readings. - Continue amlodipine 5mg daily - Continue irbesartan 150mg nightly Menopausal state 04/11/2015 Osteoporosis 04/11/2015 Assessment & Plan (07/22/2025 6:35 AM EST): - She is on calcium with vitamin D. She does not tolerate Fosamax Multiple thyroid nodules 11/11/2014 Assessment & Plan (07/22/2025 1:08 PM EST): - Multiple thyroid nodules with no recent imaging follow-up. - Ordered thyroid ultrasound to evaluate for persistence or changes in thyroid nodules. Will review results at follow-up. Resolved Problems Problem Noted Date Diagnosed Date Resolved Date Preop examination 01/24/2025 07/22/2025 Assessment & Plan (01/24/2025 3:43 PM EDT): RCRI score is 0 which means she has 3.9% risk Surgery should proceed as scheduled I advised for her to be n.p.o. after midnight for the procedure I advised to take her blood pressure medications the morning of the procedure with a small sip of water Neck pain 01/24/2025 07/22/2025 Assessment & Plan (01/24/2025 3:44 PM EDT): Apply heat on affected area I will order an x-ray I will refer her for physical therapy Callosity 12/17/2022 09/22/2023 Ingrown toenail of left foot 12/17/2022 09/22/2023 Heartburn 11/23/2018 09/22/2023 Shoulder pain 11/23/2018 09/22/2023 Lumbalgia 04/11/2015 07/22/2025 Encounters Date Type Department Care Team Description 07/22/2025 9:30 AM EST Office Visit [facility] [address] [place], [place] [phone] Leanna Martinez FNP Primary hypertension (Primary Dx); Osteoporosis, unspecified osteoporosis type, unspecified pathological fracture presence; Multiple thyroid nodules; Hypothyroidism, unspecified type; Hiatal hernia; Healthcare maintenance; Thoracogenic scoliosis of thoracic region; Insomnia, unspecified type; Gastroesophageal reflux disease, unspecified whether esophagitis present; Glaucoma, unspecified glaucoma type, unspecified laterality 07/22/2025 Travel 07/17/2025 Telephone [facility] [address] [place] [address] Leanna Martinez FNP chart prep 07/09/2025 Patient Outreach [facility] [address] [place], [place] [phone] Leanna Martinez FNP Pre-visit Planning (SDOH screening negative and Tobacco screening negative) 06/28/2025 Travel 06/28/2025 Telephone [facility] [address] [place], [place] [phone] Saleem Snyder MD Change PCP 05/29/2025 Refill [facility] [address] [place] [address] Saleem Snyder MD Hypothyroidism, unspecified type 05/03/2025 Refill [facility] [address] [place], [place] [phone] Christopher Elise CNP Hypertension, unspecified type 04/29/2025 Refill [facility] [address] [place], [place] [phone] Christopher Elise CNP from Last 3 Months Social History Tobacco Use Types Packs/Day Years Used Date Smoking Tobacco: Never Passive Smoke Exposure: Never Smokeless Tobacco: Never Tobacco Cessation:Counseling Given: [...] 16 07/22/2025 9:46 AM EST Oxygen Saturation 98% 01/24/2025 10: 21 AM EDT Inhaled Oxygen Concentration - - Weight 66.2 kg (146 lb) 07/22/2025 9:46 AM EST Height 160 cm (5' 3 ) 07/22/2025 9:46 AM EST Body Mass Index 25.86 07/22/2025 9:46 AM EST Plan of Treatment Upcoming Encounters Date Type Department Care Team (Late st Contact Info) Description 08/09/2025 8:45 AM EST Office Visit [facility] [address] [place] [address] Leanna Martinez FNP [address] [place] [address] Health Maintenance Due Date Last Done Comments CT Colonography 1949 FIT DNA/Cologuard 1949 FIT 1949 FOBT 1950 Sigmoidoscopy 1949 Hepatitis C Screening 1967 Dental X-Ray: Bitewings 11/21/2023 11/19/2022 Dental Oral Exam 03/30/2024 09/29/2023, 11/19/2022 Dental Prophylaxis 03/30/2024 09/29/2023, 11/29/2022 Dental X-Ray: Full Mouth 11/20/2025 11/19/2022 Influenza Vaccine (#1) 2026 Postp oned from 04/22/2025 (Patient Refused) Alcohol/Substance Use Screening 07/22/2026 07/22/2025 COVID-19 Vaccine (3 - 2024-2 6 season) 2026 11/06/2020, 10/09/2020 Postponed from 04/22/2025 (Patient Refused) DTaP/Tdap/Td Vaccines (1 - Tdap) 07/22/2026 Postponed from 08/28 (Patient Refused) Depression Screening 07/22/2026 07/22/2025, 07/22/2025 Pneumococcal Vaccine: 50+ Years (1 of 1 - PCV) 07/22/2026 Postponed from 02/2000 (Patient Refused) RSV Patients and Patients Aged 60 years or older (1 - 1-dose 75+ series) 07/22/2026 Postponed from 2024 (Patient Refused) SDOH Screening 07/22/2026 07/22/2025 Tobacco Screening 07/22/2026 07/22/2025 Zoster Vaccines (1 of 2) 07/22/2026 Pos tponed from 1999 (Patient Refused) Lipid Panel 10/23/2026 10/23/2021, 03/26/2021 Colonoscopy 10/13/2028 [...] patient's age to complete this topic Meningococcal B Vaccine Aged Out No l onger eligible based on patient's age to complete [...] Procedure Name Priority Date/Time Associated Diagnosis Comments Full PROPHYLAXIS - ADULT Routine 09/29/2023 1:00 PM EST PERIODIC ORAL EVALUATION - ESTABLISHED PATIENT Routine 09/29/2023 1:00 PM EST Dental caries INTRAORAL - COMPLETE SERIES OF RADIOGRAPHIC IMAGES Routine 11/19/2022 2:00 PM EDT Dental caries LIPID PANEL, STANDARD Routine 10/23/2021 9:47 AM EST HM COLONOSCOPY Routine 10/13/2018 from Last 3 Months or Most Recently Relevant to Health Maintenance Results * LIPID PANEL, STANDARD (10/23/2021 9:47 AM EST) Chol/HDLC Ratio 3.0 <5.0 (calc) [facility] Cholesterol, Total 173 <200 mg/dL [facility] HDL Cholesterol 58 > OR = 50 mg/dL [facility] LDL Cholesterol 98 mg/dL (calc) [facility] Comment: Reference range: <100 Desirable range <100 mg/dL for primary prevention; <70 mg/dL for patients with CHD or diabetic patients with > or = 2 CHD risk factors. LDL-C is now calculated using the Aldair-Wally calculation, which is a validated novel method providing better accuracy than the Friedewald equation in the estimation of LDL-C. Aldair DUNLAP et al. JEREMY. 2013;310(19): 5847-8160 (http://education.01[employer]/faq/OJB485) Non-HDL Cholesterol 115 <130 mg/dL (calc) [facility] Comment: For patients with diabetes plus 1 major ASCVD risk factor, treating to a non-HDL-C goal of <100 mg/dL (LDL-C of <70 mg/dL) is considered a therapeutic option. Triglycerides 77 <150 mg/dL FOUND ATFORMERLY [facility] 10/23/2021 9:47 AM EST us Saleem Name LAB BLOOD ORDERABLES Final Resul t [facility] [address] * Colonoscopy (10/13/2018) Colonoscopy Normal Normal 10/13/2018 Narrative Carolyn Jesika - 10/13/2018 10:42 AM EST Recommended 10 year follow up Historical Provider HEALTH MAINTENANCE Final Result from Last 3 Months or Most Recently Relevant to Health Maintenance Insurance [facility] MEDICARE ADVANTAGE HMO DENTAL [facility] DENTAL - HSN FULL (MEDICAID) Care Teams Community Theater Actor Relationship Specialty Start Date End Date Leanna Martinez FNP [address] [place] [address] MANSI LOPEZ [address] PCP - General Family Medicine 07/05/25
[2025-07-22 14:37] LABS: Hematocrit 40.4 % (37.0-47.0); Hemoglobin 13.2 g/dl (12.0-16.0); Imm Gran Abs Auto 0.01 X10*3/uL (0.00-0.03); Imm Gran Pct Auto 0.2 % (0.0-0.4); Lymphocytes Absolute Auto 1.7 X10*3/uL (1.2-4.9); MANUAL DIFF FLAG SCAN; Mean Corpuscular HGB Conc 32.7 g/dl (31.0-35.0); Mean Corpuscular Hemoglobin 31.1 pg (27.0-33.0); Mean Corpuscular Volume 95.3 fL (80.0-98.0); NRBC Abs Auto 0.000 X10*3/uL (0.0-0.012); NRBC Pct Auto 0.0 /100WBC (0.0-0.2); PLT CLUMP 1; Red Blood Count 4.24 X10*6/uL (4.20-5.50); SCAN SMEAR FLAG 1
[2025-07-22 15:03] LABS: Alanine Aminotransferase 14 U/L (0-31); Albumin Level 4.4 g/dL (3.5-5.0); Alkaline Phosphatase 142 U/L (39-117); Anion Gap 9 (12-20); Aspartate Amino Transferase 22 U/L (5-31); Blood Urea Nitrogen 15 mg/dL (9-16); Calcium 9.4 mg/dL (8.4-10.2); Carbon Dioxide 29 mmol/L (22-29); Chloride 109 mmol/L (96-108); Cholesterol 198 mg/dL (<200); Estimated Glomerular Filt Rate > 60; HDL Cholesterol 55 mg/dL (>40); Potassium 4.2 mmol/L (3.3-5.1); Sodium 143 mmol/L (135-145); Total Protein 6.9 g/dL (6.5-8.0); Triglycerides 103 mg/dL (<150)
[2025-07-22 15:05] LABS: Platelet Count 180 X10*3/uL (160-400); White Blood Count 4.6 X10*3/uL (4.8-10.8)
[2025-07-22 15:15] LABS: Microalbum/Creatinine Ratio Ur 12.9 ug/mg cr (<30)
[2025-07-23 08:08] LABS: HIV Num 1 0.06 S/CO (0.00-0.99)
[2025-07-25 08:03] LABS: HCV Log PCR <1.18 NOT DETECTED Log IU/mL (NOT DETECTED); HepC Viral Load <15 NOT DETECTED IU/mL (NOT DETECTED)
== END 2025-07-22 10:39 | disposition home or self-care (01) ==
LOC: HO.CHCLDS 10:38
PROVIDERS: Visit Provider Registered Nurse
DX: Z00.00 Encounter for general adult medical examination without abnormal findings (principal); Z11.4 Encounter for screening for human immunodeficiency virus [HIV]; Z11.59 Encounter for screening for other viral diseases; Z20.2 Contact with and (suspected) exposure to infections with a predominantly sexual mode of transmission; Z13.29 Encounter for screening for other suspected endocrine disorder; Z13.6 Encounter for screening for cardiovascular disorders; Z13.1 Encounter for screening for diabetes mellitus
CPT/HCPCS: 36415; 80053; 80061; 82043; 82570; 83036; 84443; 85025; 86592; 87389; 87522

== ENCOUNTER 2025-08-07 10:36 | Outpatient (AMB) | payer MEDICARE, MEDICAID, SELFPAY ==
[2025-08-07 10:59] VITALS: BP 176/76; PULSE 76; BMI 26.0
--- NOTE | 2025-08-07 10:59 | MHC.OFFVIS ---
Vital Signs 08/07/25 10:59 Height 5 ft 3 in Weight 147 lb BMI 26.0 BP 176/76 H Blood Pressure Location Rt brachial Position Sitting Pulse 76 Intake Visit Reasons: hiatal hernia Intake Note: Patient referred by Leanna JAMES for assessment of Hiatal hernia. Present for about 5yrs. Patient c/o: intense abdominal pain. Even drinking water and bending down intense pain that started approximately 1yr. Was awaiting surgery at [facility] but never heard back. Of note: [facility] notes and Barium swallow report available for review. Lead Network Architect Required: Yes Lead Network Architect Services: Lead Network Architect Offered & Declined (roxanne Lara will serve as laundry marker supervisor) Information Interpreted: non-clinical & clinical Accompanied by: Grand Child Allergies poly-ureaurethane (From NUVAIL) Allergy (Unknown, Verified 08/07/25 11:07) SEVERE ANXIETY Medication List - Last Reconciled 08/07/25 by Damaso Wolff MD amlodipine 5 mg PO BID cholecalciferol (vitamin D3) 50 mcg PO DAILY famotidine (Pepcid) 40 mg PO DAILY irbesartan 75 mg PO DAILY latanoprost 0.005% 0 drps ophthalmic (eye) levothyroxine 88 mcg PO DAILY loperamide (Anti-Diarrheal (loperamide)) 2 mg PO Q4H PRN naproxen 500 mg PO BID PRN 7 days pantoprazole 40 mg PO BID HPI Comments Details: 74-year-old lady presents with complaints of epigastric abdominal pain. Patient is a very poor historian but she reports that for many years now she has had problems with epigastric abdominal pain with eating. She also reports some reflux. She denies ever having emesis. She denies having to sleep elevated she denies reflux at night she denies ever having pain without eating although she does report sometimes she has pain with drinking water. Her abdominal complaints have not resulted in weight loss. She has never had abdominal surgery before. She has remote history of an upper endoscopy with which she was diagnosed with Rivera's and was told that she has a small hiatal hernia. She had a CT scan in the system here from approximately a year ago that did not show any hiatal hernia and showed no other abnormalities that would have any bearing on her current abdominal concerns. She apparently was going to see a surgeon at [facility] but ?they never called?. PFSH Medical History (Updated 08/07/25 @ 11:32 by Damaso Wolff MD) Osteoporosis Acid reflux HTN (hypertension) Surgical History (Updated 08/07/25 @ 11:09 by KAREEM Portillo) Hx of foot surgery History of eye surgery Hx of tonsillectomy H/O: hysterectomy Family History Brother Prostate cancer Sister Colon cancer Social History Household Members: Spouse Household Members Other:: Alcohol intake: never Current occupational status: unemployed Current occupation: right hand dominant Review of Systems Const All systems reviewed & are unremarkable except as noted in HPI and below Physical Exam Vital Signs: Last Vital Signs Pulse 76 08/07/25 10:59 BP 176/76 H 08/07/25 10:59 BMI result Body Mass Index 26.0 Const General: cooperative, healthy appearing and comfortable Nutritional Appearance: obese Orientation/consciousness: oriented to person, oriented to place and oriented to time HEENT Head: Yes normal to inspection Ears: hearing grossly normal bilaterally General nose exam: Normal external nose present Face and sinus: Yes normal facial exam Eyes General: appearance normal, both eyes and all related structures Pupils: Equal, round and reactive pupils present EOM: EOMs intact bilaterally Neck Neck: Yes normal visual inspection Chest Chest palpation & inspection: normal inspection of the chest Resp Effort & Inspection: normal respiratory effort and able to speak in complete sentences Cardio Rate: regular rate Rhythm: regular rhythm GI Other: Soft morbidly obese nontender nondistended no scars or masses or hernias. The patient locates the region of her discomfort in her midepigastrium. She also reports some tenderness to palpation here. She reports tenderness to palpation in left upper quadrant and right upper quadrant and also along the rib border in the lower ribs anteriorly and laterally. There was no evidence of hepatosplenomegaly. Back/Spine/Pelvis Thoracic/Lumbar Spine: thoracic and lumbar spine normal to inspection Neuro General: oriented to person, oriented to place and oriented to time Cranial nerves: Yes CN's II-XII intact bilaterally and Yes Equal, round and reactive pupils present Assessment & Plan Assessment & Plan (1) Acid reflux: Comment: 71-year-old female with persistent acid reflux, previous visit recommended manometry and follow up with MD for further plan of care. esophageal manometry has now been scheduled - she would like to be called for a cancel also-Have patient follow up with laundry marker supervisor, e Code(s): K21.9 - Gastro-esophageal reflux disease without esophagitis Category: Medical Qualifiers: Esophagitis presence: esophagitis presence not specified Qualified Code(s): K21.9 - Gastro-esophageal reflux disease without esophagitis Plan: I told the patient I did not know what was causing her pain. For reflux patient she has a bit of a unique presentation. It could be that her pain is from her gallbladder would be reasonable to see if she has stone involvement. Her only imaging that I have access to his a CT scan that was unremarkable. I think repeat of her upper endoscopy, barium swallow and possibly even manometry studies would be helpful. We will see her back when we have all of the above results. She was told to avoid NSAIDs and to take her PPIs regularly. She said she understood. She is encouraged to contact us should she have any questions or problems. 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
--- OUTSIDE RECORDS SUMMARY | 2025-08-07 13:21 | XMS_ITS | Encounter Summary ---
Author Organization [employer] Address [address] [facility] 7 [place] [address] Care Team Providers Care Math And Sciences Department Chair Name Role Phone Leanna Martinez ERIKA Primary Care Provider [phone] Reason for Visit * Reason Comments Med Refill Encounter Details Date Type Department Care Team ([facility] st Contact Info) Description 08/04/2025 Refill [facility] [address] [place], [place] [phone] Name, MD Saleem [address] [place] [address] Hypertension, unspecified type Social History Tobacco Use Types Packs/Day Years [...] Upcoming Encounters Date Type Department Care Team ([facility] st Contact Info) Description 08/09/2025 8:45 AM EST Office Visit [facility] [address] [place] [address] Leanna Martinez FNP [address] [place] [address] documented as of this encounter Visit Diagnoses Diagnosis Hypertension, unspecified type documented in this encounter Additional Health Concerns Assessment Noted Time PHQ-9 Depression Total Score: 1 07/22/20 9:51 AM EST documented as of this encounter Care Teams Math And Sciences Department Chair Relationship Specialty Start Date End Date Leanna Martinez FNP [address] [place] [address] PCP - General Family Medicine 07/05/25 documented as of this encounter
--- OUTSIDE RECORDS SUMMARY | 2025-08-07 13:21 | XMS_ITS | Encounter Summary ---
Author Organization [employer] Address [address] [place] [address] 7 [place] [address] Care Team Providers Care Senior Drupal Developer Name Role Phone Claudio, Saleem READ Primary Care Provider [phone] Leanna Martinez Primary Care Provider [phone] Reason for Visit * Reason Comments Med Change Request Encounter Details Date Type Department Care Team ([facility] st Contact Info) Description 01/17/2024 Refill [facility] [address] [place], [place] [phone] Name, MD Saleem [address] [place], [place] [phone] Chronic midline thoracic back pain Social History [...] your housing situation today? I have davidson nguyễn 12/26/[address] you li [...] Upcoming Encounters Date Type Department Care Team ([facility] st Contact Info) Description 08/09/2025 8:45 AM EST Office Visit [facility] [address] [place] [address] Leanna Martinez FNP [address] [place] [address] documented as of this encounter Visit Diagnoses Diagnosis Chronic midline thoracic back pain documented in this encounter Additional Health Concerns Assessment Noted Time PHQ-9 Depression Total Score: 0 12/26/19 24 8:54 AM EDT documented as of this encounter Care Teams Senior Drupal Developer Relationship Specialty Start Date End Date Name, MD Saleem [address] [place] [id number] PCP - General Family Medicine 11/23/18 07/04/25 Leanna Martinez FNP [address] [place] [address] PCP - General Family Medicine 07/05/25 documented as of this encounter
--- OUTSIDE RECORDS SUMMARY | 2025-08-07 13:21 | XMS_ITS | Encounter Summary ---
Author Organization [employer] Address [address] [facility] 7 [place] [address] Care Team Providers Care Auto Care Center Manager Name Role Phone Name, Saleem READ Primary Care Provider [phone] Leanna Martinez Primary Care Provider [phone] Reason for Visit * Reason Onset Date Comments Reschedule 08/11/2023 Encounter Details Date Type Department Care Team (Late st Contact Info) Description 08/11/2023 Telephone [facility] [address] [place], [place] [phone] Name, MD Saleem [address] [place], [place] [phone] Reschedule Social History Tobacco Use Types Packs/Day [...] 8:45 AM EST Office Visit [facility]S [address] [place] [address] Leanna Martinez FNP [address] [place] [address] documented as of this encounter Visit Diagnoses Not on filedocumented in this encounter Additional Health Concerns Assessment Noted Time PHQ-9 Depression Total Score: 0 12/18/19 23 11:15 AM EDT documented as of this encounter Care Teams Auto Care Center Manager Relationship Specialty Start Date End Date Name, MD Saleem [address] [place] [address] PCP - General Family Medicine 11/23/18 07/04/25 Leanna Martinez FNP [address] [place] [address] PCP - General Family Medicine 07/05/25 documented as of this encounter
--- OUTSIDE RECORDS SUMMARY | 2025-08-07 13:22 | XMS_ITS | Encounter Summary ---
Author Organization [employer] Address [address] [place] [address] [address] [place] [address] Care Team Providers Care Hospital Educator Name Role Phone Name, Saleem READ Primary Care Provider [phone] Leanna Martinez Primary Care Provider [phone] Encounter Details Date Type Department Care Team (Late Contact Info) Description 01/03/2023 Abstract [facility] MEDICINE [address] [place], [place] [phone] Name, MD Saleem [address] [place] [address] Social History Tobacco Use Types Packs/Day Years [...] Description 08/09/2025 8:45 AM EST Office Visit [facility] PEDS [address] [place] [address] Leanna Martinez FNP [address] [place] [address] documented as of this encounter Procedures Procedure [...] documented as of this encounter Care Teams Hospital Educator Relationship Specialty Start Date End Date Name, MD Saleem [address] [place] [address] PCP - General Family Medicine 11/23/18 07/04/25 Leanna Martinez FNP [address] [place] [address] PCP - General Family Medicine 07/05/25 documented as of this encounter
--- OUTSIDE RECORDS SUMMARY | 2025-08-07 13:22 | XMS_ITS | Encounter Summary ---
Author Organization [employer] Address [address] [place] [address] 7 [place] [address] Care Team Providers Care Ethics Instructor Name Role Phone Name, Saleem READ Primary Care Provider [phone] Leanna Martinez Primary Care Provider [phone] Reason for Visit * Reason Onset Date Comments Transfer Pt 11/09/2024 Encounter Details Date Type Department Care Team (Late st Contact Info) Description 11/09/[address] [facility] MED[facility]INE [address] [place], [place] [phone] Name, MD Saleem [address] [place], [place] [phone] Transfer Pt Social History Tobacco Use Types [...] to be seenby provider. Please return call [phone] * Telephone Encounter - Mega Olivares - 11/13/2024 11:57 AM EDT Tc from pt requesting status of Prior message. Pt states wants to get over there as soon as possible. Pt is trying to Switch to Dr martinez. Contact pt at [phone] * Telephone Encounter - Tiara Page - 11/09/2024 11:25 AM EDT Tc [place] pt [place] [facility] [place] gets [place] and due to transportation is closer to her. Please Contact [phone] documented in this encounter Plan of Treatment Upcoming Encounters Date Type Department Care Team (Late st Contact Info) Description 08/09/2025 8:45 AM EST Office Visit [facility] MED & PEDS [address] [place] [address] Leanna Martinez FNP [address] [place] [address] documented as of this encounter Visit Diagnoses Not on filedocumented in this encounter Additional Health Concerns Assessment Noted Time PHQ-9 Depression Total Score: 0 12/26/19 24 8:54 AM EDT documented as of this encounter Care Teams Ethics Instructor Relationship Specialty Start Date End Date Name, MD Saleem [address] [place] [address] PCP - General Family Medicine 11/23/18 07/04/25 Leanna Martinez FNP [address] [place] [address] PCP - General Family Medicine 07/05/25 documented as of this encounter
--- OUTSIDE RECORDS SUMMARY | 2025-08-07 13:23 | XMS_ITS | Encounter Summary ---
Author Organization [employer] Address [address] [place] [address] Care Team Providers Care Aligner Name Role Phone Name, Saleem READ Primary Care Provider [phone] Laenna Martinez Primary Care Provider [phone] Encounter Details Date Type Department Care Team (Late st Contact Info) Description 08/10/2022 Orders Only [facility] [address] [place] [address] Snow Sims LPN Social History Tobacco Use [...] Description 08/09/2025 8:45 AM EST Office Visit [facility] MED & PEDS [address] [place], [place] [phone] Leanna Martinez FNP [address] [place], [place] [phone] documented as of this encounter Procedures Procedure Name Priority Date/Time Associated Diagnosis Comments VITAMIN D,25-OH,TOTAL,IA Routine 09/28/2022 8:29 AM EST documented in this encounter Results * Vitamin D, 25-Hydroxy, Total, Immunoassay (09/28/2022 8:29 AM EST) Vitamin D 25-OH Total 14.5 >30 ng/mL [facility] Comment:Health Based Referen ce Values*< 20 ng/mL [id number] ng/mL Insufficient> 30 ng/mL Sufficient*Ryley VERAS. N [...] 8:29 AM EST 09/28/2022 10:41 AM EST [facility] External Provider LAB BLO OD ORDERABLES Final Result [facility] [address] [place] [address] [phone] documented in this encounter Visit Diagnoses Not on filedocumented in this encounter Care Teams Aligner Relationship Specialty Start Date End Date Name, MD Saleem [address] [place] [address] PCP - General Family Medicine 11/23/18 07/04/25 Leanna Martinez FNP [address] [place] [address] PCP - General Family Medicine 07/05/25 documented as of this encounter
--- OUTSIDE RECORDS SUMMARY | 2025-08-07 13:23 | XMS_ITS | Encounter Summary ---
Author Organization [facility] Address [address] [place] [address] Care Team Providers Care Senior Technical Program Manager Name Role Phone Name, Saleem READ Primary Care Provider [phone] Leanna Martinez Primary Care Provider [phone] Encounter Details Date Type Department Care Team (Late st Contact Info) Description 11/01/2022 Orders Only [facility] MED & PEDS [address] [place] [address] Rosangela Hensley LPN Social History Tobacco Use [...] Description 08/09/2025 8:45 AM EST Office Visit [facility] MED & PEDS [address] [place] [address] Leanna Martinez FNP [address] [place], [place] [phone] documented as of this encounter Visit Diagnoses Not on filedocumented in this encounter Care Teams Senior Technical Program Manager Relationship Specialty Start Date End Date Name, MD Saleem [address] [place] [address] PCP - General Family Medicine 11/23/18 07/04/25 Leanna Martinez FNP [address] [place] [address] PCP - General Family Medicine 07/05/25 documented as of this encounter
--- OUTSIDE RECORDS SUMMARY | 2025-08-07 13:23 | XMS_ITS | Clinical Summary ---
Author Organization [employer] Address [address] [place] [address] 7 [place] [address] Care Team Providers Care In Flight Technician Name Role Phone SergeyLeanna sierra ERIKA Primary Care Provider [phone] Allergies Active Allergy Reactions Criticality Noted Date [...] BEDTIME 90 tablet 3 11/01/19 25 Active levothyroxine (Synthroid, Levoxyl) 88 MCG [...] times daily. 180 tablet 07/22/20 25 Active amLODIPine (Norvasc) 5 MG tabletIndicatio ns:Hypertension , unspecified type TAKE 1 TABLET BY MOUTH EVERY DAY 90 tablet 3 08/05/20 25 Active famotidine (Pepcid) 20 MG tablet TAKE 1 TABLET (20 MG) BY MOUTH ONCE PER DAY. 90 tablet 04/30/20 25 025 Discontinued(Re order (will not trigger notification to Pharmacy)) amLODIPine (Norvasc) 5 MG tabletIndicatio ns:Hypertension , unspecified type TOME 1 TABLETA POR VIA ORAL TODOS LOS PRIDE 90 tablet 05/03/20 25 025 Discontinued Active Problems Problem Noted Date [...] in the past at several different practices ([facility] [place], [place] and [facility] 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 In 2022 Dr Fleming for GI at [facility] that did a Barium swallow and 24 ph monitoring and recommended a referral to surgery Seasonal allergic reaction 01/29/2019 Glaucoma 11/23/2018 H/O: hysterectomy 11/23/2018 Hiatal hernia 11/23/2018 Overview (12/17/2022): Dr Carias recently seen her She had EGD and colonoscopy in [place]. She says had 1 polyp removed ( [...] Encounters Date Type Department Care Team Description 08/04/2025 Refill [facility] MEDICINE [address] [place] [address] Name, MD Saleem Hypertension, unspecified type 07/22/2025 9:30 AM EST Office Visit [facility]ED[facility] [address] [place] [address] Leanna Martinez FNP Primary hypertension (Primary Dx); Osteoporosis, unspecified osteoporosis type, unspecified pathological fracture presence; Multiple thyroid nodules; Hypothyroidism, unspecified type; Hiatal hernia; Healthcare maintenance; Thoracogenic scoliosis of thoracic region; Insomnia, unspecified type; Gastroesophageal reflux disease, unspecified whether esophagitis present; Glaucoma, unspecified glaucoma type, unspecified laterality 07/22/2025 Travel 07/17/2025 Telephone [facility] MED & PEDS [address] [place] [address] Leanna Martinez FNP chart prep 07/09/2025 Patient Outreach [facility] [address] [place] [address] [phone] Leanna Martinez FNP Pre-visit Planning (SDOH screening negative and Tobacco screening negative) 06/28/2025 Travel 06/28/2025 Telephone [facility] MED & PEDS [address] [place] [address] Saleem Snyder MD Change PCP 05/29/2025 Refill [facility] MED[facility]INE [address] [place] [address] Saleem Snyder MD Hypothyroidism, unspecified type from Last 3 Months Social History Tobacco [...] Description 08/09/2025 8:45 AM EST Office Visit [facility] MED & PEDS [address] [place] [address] Leanna Martinez FNP [address] [place] [address] Health Maintenance Due Date Last Done Comments CT Colonography 1949 FIT DNA/Cologuard 1949 FIT 1949 FOBT 1950 Sigmoidoscopy 1950 Dental X-Ray: Bitewings 11/21/2023 11/19/2022 Dental Oral [...] (Patient Refused) Depression Screening 07/22/2026 07/22/2025, 07/22/2025 Diabetes: Hemoglobin A1C 07/22/2026 07/22/2025 Pneumococcal Vaccine: 50+ Years (1 of 1 - PCV) 07/22/2026 Postponed from 02/2000 (Patient Refused) RSV Patients and Patients Aged 60 years or older (1 - 1-dose 75+ series) 07/22/2026 Postponed from 2024 (Patient Refused) SDOH Screening 07/22/2026 07/22/2025 Tobacco Screening 07/22/2026 07/22/2025 Zoster Vaccines (1 of 2) 07/22/2026 Pos tponed from 1999 (Patient Refused) Colonoscopy 10/13/2028 10/13/2018 Colorectal Cancer Screening 10/13/2028 Lipid Panel 07/22/2030 07/22/2025, 10/23/2021, 03/26/2021 Hepatitis C Screening Completed 07/22/2025 HIB Vaccines Aged Out No longer eligi [...] Procedure Name Priority Date/Time Associated Diagnosis Comments ALBUMIN, RANDOM URINE W/CREATININE Routine 07/22/2025 10:45 AM EST Healthcare maintenance SLIDE REVIEW Routine 07/22/2025 10:39 AM EST HIV 1/2 ANTIGEN/ANTIBODY, FOURTH GENERATION W/RFL Routine 07/22/2025 10:39 AM EST Healthcare maintenance RPR (MONITOR) W/REFL TITER Routine 07/22/2025 10:39 AM EST Healthcare maintenance HEPATITIS C VIRAL RNA, QUANTITATIVE, REAL-TIME PCR Routine 07/22/2025 10:39 AM EST Healthcare maintenance CBC WITH AUTO DIFFERENTIAL Routine 07/22/2025 10:39 AM EST Healthcare maintenance COMPREHENSIVE METABOLIC PANEL Routine 07/22/2025 10:39 AM EST Healthcare maintenance TSH W/REFLEX TO FT4 Routine 07/22/2025 1 0:39 AM EST Healthcare maintenance HEMOGLOBIN A1C Routine 07/22/2025 10:39 AM EST Healthcare maintenance LIPID PANEL, STANDARD Routine 07/22/2025 10:39 AM EST Healthcare maintenance Full PROPHYLAXIS - ADULT Routine 09/29/2023 1:00 PM EST PERIODIC ORAL EVALUATION - ESTABLISHED PATIENT Routine 09/29/2023 1:00 PM EST Dental caries INTRAORAL - COMPLETE SERIES OF RADIOGRAPHIC IMAGES Routine 11/19/2022 2:00 PM EDT Dental caries HM COLONOSCOPY Routine 10/13/2018 from Last 3 Months or Most Recently Relevant to Health Maintenance Results * Albumin, Random Urine W/Creatinine (07/22/2025 10:45 AM EST) Creatinine, Urine 130.85 mg/dL [facility] Microalbumin Urine 17.0 mg/L [facility] Microalbum Creatinine Ratio Ur 12.9 <30 ug/mg cr [facility] Comment:Albumin/Creatinine R atio Reference Ranges: Normal: < 30 ug/mg creatinine Microalbuminuria: 30 - 300 ug/mg creatinineClinical Albuminuria: > 300 ug/mg creatinine Urine 07/22/2025 10:4 5 AM EST 07/22/2025 2:12 PM EST Leanna Phalmariela PATTERN DEVELOPER LAB URINE ORDERABLES Final Res ult Performing Organization Address [facility] Co de Phone Number [facility] [address] [place] [phone] * Slide Review (07/22/2025 10:39 AM EST) Slide Review VERIFIED [facility] 07/22/2025 10:3 9 AM EST 07/22/2025 2:17 PM EST Leanna Martinez PATTERN DEVELOPER LAB BLOOD ORDERABLES Final Res ult Performing Organization Address [facility] de Phone Number [facility] [address] [place] [phone] * TSH with Reflex to Free T4 (07/22/2025 10:39 AM EST) TSH reflex Free T4 2.35 0.32 - 4.0 uIU/mL [facility] Blood 07/22/2025 10:3 9 AM EST 07/22/2025 2:17 PM EST Leanna Phalen PATTERN DEVELOPER LAB BLOOD ORDERABLES Final Res ult Performing Organization Address [facility]/ZIP Co de Phone Number [facility] [address] [place] [phone] * Hepatitis C Viral RNA, Quantitative, Real-Time PCR (07/22/2025 10:39 AM EST) [facility] Hepatitis C Viral Load <15 NOT DETECTED NOT DETECTED IU/mL [facility] HCV Log PCR <1.18 NOT DETECTED NOT DETECTED Log IU/mL [facility] Comment:For additional infor matsteve, please refer [email or web address].Vehrity/faq/[email or web address](This link is being provided for informational/educational purposes only.)THIS TEST WAS PERFORMED AT:[facility] [place] [phone] TOUSSAINT MD Blood 07/22/2025 10:3 9 AM EST 07/22/2025 2:17 PM EST Leanna Martinez [facility] LAB BLOOD ORDERABLES Final Res ult Performing Organization Address [facility] Co de Phone Number [facility] [address] [place] [address] [phone] * (ABNORMAL) CBC auto differential (07/22/2025 10:39 AM EST) [facility] White Blood Count 4.6(L) 4.8 - 10.8 X10*3/uL [facility] Red Blood Count 4.24 4.20 - 5.50 X10*6/uL [facility] Hemoglobin 13.2 12.0 - 16.0 g/dl [facility] Hematocrit 40.4 37.0 - 47.0 % [facility] Mean Corpuscular Volume 95.3 80.0 - 98.0 fL [facility] Mean Corpuscular Hemoglobin 31.1 27.0 - 33.0 pg [facility] Mean Corpuscular HGB Conc 32.7 31.0 - 35.0 g/dl [facility] Red Cell Distribution Width 13.3 11.0 - 16.0 % [facility] Platelet Count 180 160 - 400 X10*3/uL [facility] Mean Platelet Volume 13.5(H) 9.4 - 12.3 fL [facility] Neutrophils Percent Auto 45.6 45 - 73 % [facility] Imm Gran Pct Auto 0.2 0.0 - 0.4 % [facility] Lymphocytes Percent Auto 37.9 20 - 40 % [facility] Monocytes Percent Auto 9.0 2 - 11 % [facility] Eosinophils Percent Auto 5.3(H) 0 - 4 % [facility] Basophils Percent Auto 2.0 0 - 2 % [facility] NRBC Pct Auto 0.0 0.0 - 0.2 /100WBC [facility] Neutrophils Absolute Auto 2.1 2.0 - 8.3 x10*3/uL [facility] Imm Gran Abs Auto 0.01 0.00 - 0.03 X10*3/uL [facility] Lymphocytes Absolute Auto 1.7 1.2 - 4.9 X10*3/uL [facility] Monocytes Absolute Auto 0.4 0.1 - 1.2 X10*3/uL [facility] Eosinophils Absolute Auto 0.2 0.0 - 0.4 X10*3/uL [facility] Basophils Absolute Auto 0.1 0.0 - 0.2 X10*3/uL [facility] NRBC Abs Auto 0.000 0.0 - 0.012 X10*3/uL [facility] Blood Venous blood specimen / Unknown 07/22/2025 10:39 AM EST 07/22/2025 2:17 PM EST us Leanna Martinez PATTERN DEVELOPER LAB BLOOD ORDERABLES Edited Re christopher - Final [facility] [address] [place] [phone] [phone] * RPR (Monitor) with Reflex to??Titer (07/22/2025 10:39 AM EST) RPR (Monitor) w/Refl Titer NON-REACTI VE NON-REACT RENEE [facility] Comment:THIS TEST WAS PERFOR MED AT:[facility] [place] [phone] TOUSSAINT MD Rapid Plasma Reagin Ab Titer TNP [facility] Blood Venous blood specimen / Unknown 07/22/2025 10:39 AM EST 07/22/2025 2:17 PM EST Leanna Martinez [facility] LAB BLOOD ORDERABLES Final Res ult Performing Organization Address [facility] Co de Phone Number [facility] [address] [place] [phone] * HIV-1/2 Antigen and Antibodies, Fourth Generation, with Reflexes (07/22/2025 10:39 AM EST) Pathologist [facility] HIV AB/AG Nonreactive Nonreactive [facility] Comment:HIV-1 p24 Ag and/or HIV-1/HIV-2 Ab not detected.A test result that is nonreactive does not exclude thepossibility of exposure to or infection with HIV-1 and/orHIV-2. Nonreactive results in this assay for individualswith prior exposure to HIV-1 and/or HIV-2 may be due toantigen and antibody levels that are below the limit ofdetection of this assay.The [employer] HIV Ag/Ab Combo assay result andsupplemental assay results should be interpreted inconjunction with the patient's clinical presentation,history and other laboratory results. If the results areinconsistent with clinical evidence, additional testing issuggested to confirm the result. Blood Venous blood specimen / Unknown 07/22/2025 10:39 AM EST 07/22/2025 2:17 PM EST Leanna Martinez [facility] LAB BLOOD ORDERABLES Final Res ult Performing Organization Address City/[facility]/ZIP Co de Phone Number [facility] [address] [place] [phone] * Hemoglobin A1c (07/22/2025 10:39 AM EST) Hemoglobin A1c 6.0 <6.0 % [facility] Comment:Hemoglobin A1C Refer ence Range Adults: 4.8 - 6.0 % Non diabetic: < 6.0 % Goal: < 7.0 %Additional Action Suggested: > 8.0 %Note: Hemoglobin A1c results are invalid for patients with abnormal amounts of HbF. Blood transfusions may impact the HbA1c concentration in the patient sample. Estimated Average Glucose 126 mg/dL [facility] Comment:eAG = Estimated ave rage glucose which is %A1C expressed asaverage glucose, using the formula of the J1B-LtqifeaNlqhdkz Glucose study (ADAG), Diabetes Care, Vol.31,#8,Mar. 2007 Blood Venous blood specimen / Unknown 07/22/2025 10:39 AM EST 07/22/2025 2:17 PM EST Leanna Martinez [facility] LAB BLOOD ORDERABLES Final Res ult [facility] [address] [place] [phone] * (ABNORMAL) Lipid Panel, Standard (07/22/2025 10:39 AM EST) Triglycerides 103 <150 mg/dL [facility] Comment:Desirable Triglyceri de: less than 150 mg/dLBorderline High Triglyceride 150-199 mg/dLHigh Triglyceride: 200-499 mg/dLVery High Triglyceride: greater than or equal to 5OO mg/dL Cholesterol 198 <200 mg/dL [facility] Comment:Desirable Cholestero l: less than 200 mg/dLBorderline High Cholesterol: 200-239 mg/dLHigh Cholesterol: greater than 239 mg/dL LDL Cholesterol Calculated 123(H) <100 mg/dL [facility] Comment:Desirable LDL: less than 100 mg/dLNear Optimal/Above Optimal LDL: 110- 129 mg/dLBorderline High LDL: 130-159 mg/dLHigh LDL: 160-189 mg/dLVery High LDL: greater than or equal to 190 mg/dL HDL Cholesterol 55 >40 mg/dL [facility] Comment:Desirable HDL: great er than 40 mg/dL Note: This HDL assay may give artificially low results in patients with liver disease. Blood Venous blood specimen / Unknown 07/22/2025 10:39 AM EST 07/22/2025 2:17 PM EST us Leanna Martinez PATTERN DEVELOPER LAB BLOOD ORDERABLES Final Res ult [facility] [address] [place] [phone] * (ABNORMAL) Comprehensive Metabolic Panel (07/22/2025 10:39 AM EST) Sodium 143 135 - 145 mmol/L [facility] Potassium 4.2 3.3 - 5.1 mmol/L [facility] Chloride 109(H) 96 - 108 mmol/L [facility] Carbon Dioxide 29 22 - 29 mmol/L [facility] Anion Gap 9(L) 12 - 20 [facility] Urea Nitrogen (BUN) 15 9 - 16 mg/dL [facility] Creatinine, Serum 0.76 0.5 - 1.4 mg/dL [facility] Estimated Glomerular Filt Rate >60 [facility] Comment:Chronic Kidney Disea se: Estimated GFR < 60 mL/min/1.16o2Sasrwx Kidney Disease: Estimated GFR < 15 mL/min/1.73m2 Glucose 95 60 - 115 mg/dL [facility] Calcium 9.4 8.4 - 10.2 mg/dL [facility] Bilirubin, Total 0.4 0.0 - 1.0 mg/dL [facility] Aspartate Amino Transferase 22 5 - 31 U/L [facility] Alanine Aminotransferase 14 0 - 31 U/L [facility] Total Protein 6.9 6.5 - 8.0 g/dL [facility] Albumin Level 4.4 3.5 - 5.0 g/dL [facility] Alkaline Phosphatase 142(H) 39 - 117 U/L [facility] Blood Venous blood specimen / Unknown 07/22/2025 10:39 AM EST 07/22/2025 2:17 PM EST Leanna Martinez PATTERN DEVELOPER LAB BLOOD ORDERABLES Final Res ult [facility] [address] [place] [phone] * Colonoscopy (10/13/2018) Colonoscopy Normal Normal 10/13/2018 Narrative Jesika Leon - 10/13/2018 10:42 AM EST Recommended 10 year follow up Historical Provider MD HEALTH MAINTENANCE Final Result from Last 3 Months or Most Recently Relevant to Health Maintenance Insurance [facility] MEDICARE ADVANTAGE O DENTAL [facility] DENTAL - HSN FULL (MEDICAID) Care Teams In Flight Technician Relationship Specialty Start Date End Date Leanna Martinez FNP [address] [place] [address] [place] [address] PCP - General Family Medicine 07/05/25
--- OUTSIDE RECORDS SUMMARY | 2025-08-07 13:23 | XMS_ITS | Encounter Summary ---
Author Organization [employer] Address [address] [place] [address] 7 [place] [address] Care Team Providers Care Silver Solderer Name Role Phone Name, Saleem READ Primary Care Provider [phone] Leanna Martinez Primary Care Provider [phone] Reason for Visit * Reason Comments Med Refill Encounter Details Date Type Department Care Team ([facility] st Contact Info) Description 01/29/2025 Refill [facility] MED[facility] [address] [place], [place] [phone] Name, MD Saleem [address] [place] [address] Social History Tobacco Use Types Packs/Day Years [...] Upcoming Encounters Date Type Department Care Team ([facility] st Contact Info) Description 08/09/2025 8:45 AM EST Office Visit [facility] & PEDS [address] [place] [address] Leanna Martinez FNP [address] [place] [address] documented as of this encounter Visit Diagnoses Not on filedocumented in this encounter Additional Health Concerns Assessment Noted Time PHQ-9 Depression Total Score: 0 12/26/19 24 8:54 AM EDT documented as of this encounter Care Teams Silver Solderer Relationship Specialty Start Date End Date Name, MD Saleem [address] [place] [address] PCP - General Family Medicine 11/23/18 07/04/25 Leanna Martinez FNP [address] [place] [address] PCP - General Family Medicine 07/05/25 documented as of this encounter
--- OUTSIDE RECORDS SUMMARY | 2025-08-07 13:23 | XMS_ITS | Encounter Summary ---
Author Organization [employer] Address [address] [place] [address] [address] [place] [address] Care Team Providers Care Policy Checker Name Role Phone Name, Saleem READ Primary Care Provider [phone] Leanna Martinez Primary Care Provider [phone] Reason for Visit * Reason Onset Date Comments Appointment Request 12/25/2024 Encounter Details Date Type Department Care Team ([facility] st Contact Info) Description 12/25/2024 Telephone [facility] MEDICINE [address] [place], [place] [phone] Name, MD Saleem [address] [place], [place] [id number] Appointment Request Social History Tobacco Use Types [...] - 12/25/2024 1:10 PM EDT T[facility] from [facility] with [facility] requesting appointment for March please contact pt with appointment time and date. Appointment type : Physical Notes : Requested per insurance Provider - Saleem Name documented in this encounter Plan of Treatment Upcoming Encounters Date Type Department Care Team ([facility] st Contact Info) Description 08/09/2025 8:45 AM EST Office Visit [facility] [address] [place] [address] Leanna Martinez FNP [address] [place] [address] documented as of this encounter Visit Diagnoses Not on filedocumented in this encounter Additional Health Concerns Assessment Noted Time PHQ-9 Depression Total Score: 0 12/26/19 24 8:54 AM EDT documented as of this encounter Care Teams Policy Checker Relationship Specialty Start Date End Date Name, MD Saleem [address] [place] [address] PCP - General Family Medicine 11/23/18 07/04/25 Leanna Martinez FNP [address] [place] [address] PCP - General Family Medicine 07/05/25 documented as of this encounter
== END 2025-08-07 11:20 | disposition home or self-care (01) ==
LOC: HO.HGS 10:36
PROVIDERS: PCP Registered Nurse; Visit Provider Surgery
DX: K21.9 Gastro-esophageal reflux disease without esophagitis (principal)
CPT/HCPCS: 99204

== ENCOUNTER → 2025-08-07 10:36 | Outpatient (BNVA) | payer MEDICARE, MEDICAID, SELFPAY | PROVIDERS: PCP Registered Nurse; Visit Provider Surgery | DX: K21.9 Gastro-esophageal reflux disease without esophagitis (principal); K22.70 Barrett's esophagus without dysplasia; R10.9 Unspecified abdominal pain; I10 Essential (primary) hypertension | CPT/HCPCS: 99202 ==